=== PATIENT | female | born 2000 | race Caucasian/White ===

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

== ENCOUNTER 2018-01-28 14:15 | Outpatient (REF) | payer MEDICAID, SELFPAY ==
[2018-01-28 19:15] LABS: HCT 42.8 % (36.0-46.0); HGB 15.3 g/dL (12.0-15.5); Mean Corp. HGB Concentration 35.7 g/dL (32.0-36.0); Mean Corpuscular Hemoglobin 31.2 pg (27.0-33.0); Mean Corpuscular Volume 87.2 fL (80-95); Mean Platelet Volume 10.4 fL (8.0-11.0); Platelet Count 407 x1000/uL (130-400); RBC 4.91 m/cumm (4.00-5.20); RBC Distribution Width 12.3 % (11.7-14.6); White Blood Cell Count 6.87 k/cumm (4.4-10.8)
[2018-01-28 19:32] LABS: ALT 21 U/L (12-78); AST 20 U/L (15-37); Albumin 4.2 g/dL (3.4-5.0); Alkaline Phosphatase 86 U/L (46-116); Anion Gap 12.1 mmol/L (3-11); BUN 36 mg/dL (7-18); Bilirubin, Total 0.7 mg/dL (0.2-1.0); CO2 25.9 mmol/L (21.0-32.0); Calcium 10.1 mg/dL (8.5-10.1); Chloride 101 mmol/L (98-107); Glucose 131 mg/dL (70-100); Potassium 4.1 mmol/L (3.5-5.1); Sodium 139 mmol/L (136-145); TSH (W/Ref FT4) 1.82 uIU/mL (0.516-4.13); Total Protein 7.4 g/dL (6.4-8.2)
== END 2018-01-28 14:35 ==
LOC: NCHCN 14:15
PROVIDERS: PCP Nurse Practitioner Family; Visit Provider Family Medicine
DX: E11.40 Type 2 diabetes mellitus with diabetic neuropathy, unspecified (principal); R63.4 Abnormal weight loss
CPT/HCPCS: 80053; 85027; 84443

== ENCOUNTER 2019-07-02 08:16 | Inpatient (IN) | payer MEDICAID, SELFPAY ==
[2019-07-02] VITALS (44 sets, daily range): BP systolic 103–130; BP diastolic 71–92; PULSE 64–115; RESP 9–20; TEMP 36.1–37.8; O2SAT 97–100
--- NOTE | 2019-07-02 | DI.US_ITS ---
EXAM: US RENAL CLINICAL HISTORY: hydronephrosis, back pain, acute urinary retention TECHNIQUE: Ultrasound performed using standard protocol. COMPARISON: MR LUMBAR SPINE WO from 07/02/2019 US ECHOCARDIOGRAM from 07/04/2019 FINDINGS: Both kidneys are noted to be mildly enlarged and show increased renal echogenicity in relation to the liver. The right kidney measures 14.6 cm in length. The left kidney measures 13.4 cm. There is a question of mild bilateral collecting system dilatation. No perinephric collections are seen. There is no evidence of calculi. A Richardson catheter is seen in an empty bladder. IMPRESSION: Bilateral renal enlargement and increased renal echogenicity may be secondary to medical renal diseas e. There is a question of mild bilateral hydronephrosis. DATA REPOSITORY:
--- NOTE | 2019-07-02 08:19 | ED.GENADUL_ITS ---
Discharge Plan Disposition Patient Disposition: [facility] INPATIENT Condition: Stable Discharge Details Chief Complaint: Diabetes Clinical Impression: Hypoglycemia, Acute kidney injury, Hypoalbuminemia, Acute on chronic anemia, Acute urinary retention, UTI (urinary tract infection) Primary Care Provider: None,None ED Provider: Rosa Dietz Home Meds and New Rx's Prescriptions: No Action Lantus U-100 Insulin 100 unit/mL Solution 30 unit SUBCUT DAILY RF: 0 Humalog KwikPen Insulin 200 unit/mL (3 mL) Insulin Pen 30 unit SUBCUT DAILY RF: 0 Medical Decision Making 0825 -- 19-year-old female with a history of poorly controlled diabetes presents for high blood sugar last night and unresponsiveness after found by father this morning. Patient arrived to the ED in a wheelchair. She appears chronically ill, pale, lethargic and not able to answer questions. Airway appears intact. Vitals within normal limits. Fingerstick glucose 46. 2 peripheral IVs placed and 2 A of D50 given. Patient became more alert and was able to answer questions. She states she does not regularly check her blood sugar and that last night she gave herself 50 units of Lantus and 2 doses of Humalog with 30 units initially and then 10 units. She has not eaten since last night and did not give herself any insulin this morning. She was recently admitted to hospital in [place] for UTI. She states she has been significantly weak since then requiring the use of a walker. She states for the last few weeks she has had bilateral leg swelling, weakness, numbness in addition to urinary retention and loose stools. She denies any fever, abdominal pain, back pain or saddle anesthesia. She has moderate peripheral leg edema with notable weakness in both legs. She has mildly decreased rectal tone. Bladder scan 1000 cc. Repeat glucose 452. Discussed with patient that she will need to stay in the hospital due to her current condition and poorly controlled diabetes. Will obtain an MRI lumbar spine to rule out cauda equina although this appears less likely as she has intact sensation to perineum with only mildly decreased rectal tone and her lower extremity edema and weakness could be attributed to underlying kidney or liver disease and deconditioning. She does state that she has had ongoing lower back pain for months, usually worse at night but currently denies any back pain. 1000 --recheck glucose 237. Patient had 2700 cc of urine removed with indwelling Richardson catheter. Labs reviewed. White blood cell count 12. Hemoglobin 7.6. Potassium 3.2. BUN 37. Creatinine 2.44. Negative troponin. BNP 598. Urinalysis notes greater than 50 WBCs, negative epis and moderate bacteria. Will give a dose of antibiotics. Records from [facility] in [place] note that patient was admitted there for 5 days and diagnosed with hyponatremia and UTI treated with Rocephin. She had a CT abdomen done which noted a distended urinary bladder with bilateral hydronephrosis. She had urinary retention at that time and was thought to be due to a neurogenic bladder. Her pedal edema was treated with IV Lasix. She had gotten physical therapy and was discharged home after improved. Her admission creatinine was 2.57 and was down to 1.21 on discharge. Hemoglobin was as low as 8.2 during this admission. She has significant generalized weakness so will give 1 unit of prbc. Case discussed with Dr. Phillips who accepts patient for admission pending lumbar spine MRI. 1300 --lumbar spine MRI negative for any acute neurological process. Noted b ilateral large kidneys with mild bilateral hydronephrosis. Suspect urinary retention may be due to neurogenic bladder. Case again discussed with hospitalist who accepts patient for admission to the floor. Patient feels much better. She has been hemodynamically stable. She was able to eat breakfast and lunch. Medical Records Medical records reviewed: Yes I reviewed the patient's medical records. Imaging Data Radiologic Study: Radiologist's impression: XR PORTABLE CHEST AP INDICATION: leg swelling/weakness, r/o acute disease. COMPARISON: No exams were available for comparison TECHNIQUE: 2D digital imaging was performed. FINDINGS: Cardiac and mediastinal contours have a normal appearance. Leads overlie the chest. The lungs are suboptimally inflated but appear clear. No infiltrate, effusion or pulmonary edema is seen. No rib fracture or pneumothorax is identified. The shoulders are unremarkable. No free air is seen beneath the diaphragm. There is no abnormal visualized loops of bowel or abnormal gastric dilatation. IMPRESSION: Negative portable chest. Lab Data Lab results reviewed: Yes I reviewed the patient's lab results. Labs: 07/02/19 09:42 Urine - Reflex from Ua Urine Culture - Pending Laboratory Tests Range/Units 07/02/19 07/02/19 07/02/19 08:50 08:50 09:42 WBC (4.4-10.8) k/cumm 12.16 H RBC (4.00-5.20) m/cumm 2.75 L Hgb (12.0-15.5) g/dL 7.6 L Hct (36.0-46.0) % 23.2 L MCV (80-95) fL 84.4 MCH (27.0-33.0) pg 27.6 MCHC (32.0-36.0) g/dL 32.8 RDW (11.7-14.6) % 11.7 Plt Count (130-400) x1000/uL 561 H MPV (8.0-11.0) fL 8.7 Immature Gran % % 0.0 Neutrophils % 81.0 Lymphocytes % 14.0 Monocytes % 3.0 Eosinophils % 1.0 Basophils % 1.0 Absolute Neutrophils (1.2-6.7) k/cumm 9.85 H Absolute Lymphocytes (1.2-3.4) k/cumm 1.70 Absolute Monocytes (0.11-0.7) k/cumm 0.36 Absolute Eosinophils (0.0-0.7) k/cumm 0.12 Absolute Basophils (0.0-0.2) k/cumm 0.12 Differential Comment Manual differential RBC Morphology See below Polychromasia Present Sodium (136-145) mmol/L 133 L Potassium (3.5-5.1) mmol/L 3.2 L Chloride (98-107) mmol/L 98 Carbon Dioxide (21.0-32.0) mmol/L 23.4 Anion Gap (3-11) mmol/L 11.6 H BUN (7-18) mg/dL 37 H Creatinine (0.55-1.02) mg/dL 2.44 H Estimated GFR/1.73 m2 (mL/min/1.73m2) 25.00 Glucose (74-106) mg/dL 36 L* Calcium (8.5-10.1) mg/dL 8.9 Magnesium (1.8-2.4) mg/dL 1.8 Total Bilirubin (0.2-1.0) mg/dL 0.1 L AST (15-37) U/L 13 L ALT (14-59) U/L 7 L Alkaline Phosphatase (46-116) U/L 152 H Troponin I (<0.06) ng/Ml < 0.05 NT-Pro-B Natriuret Pep (<300) pg/mL 598 H Total Protein (6.4-8.2) g/dL 8.3 H Albumin (3.4-5.0) g/dL 1.9 L Urine Color (Yellow) Yellow Urine Clarity (Clear) Sl cloudy Urine pH (5-8) 6.0 Ur Specific Clayton (1.005-1.025) 1.015 Urine Protein (Negative) mg/dL Trace H Urine Ketones (Negative) mg/dL Negative Urine Blood (Negative) Moderate H Urine Nitrite (Negative) Negative Urine Bilirubin (Negative) Negative Urine Urobilinogen (Up TO 0.2) EU/dL 0.2 Ur Leukocyte Esterase (Negative) Moderate H Urine RBC (0-2) HPF 5-10 H Urine WBC (0-5) HPF >50 H Ur Epithelial Cells (Negative) HPF Negative Urine Crystals (Negative) HPF Negative Urine Bacteria (Negative) HPF Moderate Urine Casts (Negative) LPF Negative Urine Mucus (Negative) Negative Urine Other (Negative) Moderate yeast Ur Culture Indicated? Yes Urine Glucose (Negative) mg/dL 500 H Urine Opiates Screen (Negative) Urine Methadone Screen (Negative) Ur Barbiturates Screen (Negative) Ur Tricyclics Screen (Negative) Ur Amphetamines Screen (Negative) U Benzodiazepines Scrn (Negative) Urine Cocaine Screen (Negative) Ur THC Screen (Negative) Patient ABO/Rh Antibody Screen Crossmatch Range/Units 07/02/19 07/02/19 09:42 10:27 WBC (4.4-10.8) k/cumm RBC (4.00-5.20) m/cumm Hgb (12.0-15.5) g/dL Hct (36.0-46.0) % MCV (80-95) fL MCH (27.0-33.0) pg MCHC (32.0-36.0) g/dL RDW (11.7-14.6) % Plt Count (130-400) x1000/uL MPV (8.0-11.0) fL Immature Gran % % Neutrophils % Lymphocytes % Monocytes % Eosinophils % Basophils % Absolute Neutrophils (1.2-6.7) k/cumm Absolute Lymphocytes (1.2-3.4) k/cumm Absolute Monocytes (0.11-0.7) k/cumm Absolute Eosinophils (0.0-0.7) k/cumm Absolute Basophils (0.0-0.2) k/cumm Differential Comment RBC Morphology Polychromasia Sodium (136-145) mmol/L Potassium (3.5-5.1) mmol/L Chloride (98-107) mmol/L Carbon Dioxide (21.0-32.0) mmol/L Anion Gap (3-11) mmol/L BUN (7-18) mg/dL Creatinine (0.55-1.02) mg/dL Estimated GFR/1.73 m2 (mL/min/1.73m2) Glucose (74-106) mg/dL Calcium (8.5-10.1) mg/dL Magnesium (1.8-2.4) mg/dL Total Bilirubin (0.2-1.0) mg/dL AST (15-37) U/L ALT (14-59) U/L Alkaline Phosphatase (46-116) U/L Troponin I (<0.06) ng/Ml NT-Pro-B Natriuret Pep (<300) pg/mL Total Protein (6.4-8.2) g/dL Albumin (3.4-5.0) g/dL Urine Color (Yellow) Urine Clarity (Clear) Urine pH (5-8) Ur Specific Clayton (1.005-1.025) Urine Protein (Negative) mg/dL Urine Ketones (Negative) mg/dL Urine Blood (Negative) Urine Nitrite (Negative) Urine Bilirubin (Negative) Urine Urobilinogen (Up TO 0.2) EU/dL Ur Leukocyte Esterase (Negative) Urine RBC (0-2) HPF Urine WBC (0-5) HPF Ur Epithelial Cells (Negative) HPF Urine Crystals (Negative) HPF Urine Bacteria (Negative) HPF Urine Casts (Negative) LPF Urine Mucus (Negative) Urine Other (Negative) Ur Culture Indicated? Urine Glucose (Negative) mg/dL Urine Opiates Screen (Negative) Negative Urine Methadone Screen (Negative) Negative Ur Barbiturates Screen (Negative) Negative Ur Tricyclics Screen (Negative) Negative Ur Amphetamines Screen (Negative) Negative U Benzodiazepines Scrn (Negative) Negative Urine Cocaine Screen (Negative) Negative Ur THC Screen (Negative) Negative Patient ABO/Rh O Negative Antibody Screen Negative Crossmatch See Detail ECG Data Attestation: I personally reviewed and interpreted this ECG (s) as follows: Interpretation: Rate of 72, sinus, no acute ST elevation or depression. FL 146. QTc 462. QRS 100. HPI General Mode of arrival: wheelchair . Date/Time Provider Initiated Documentation: 07/02/19 08:18 . Limitations to Documentation: altered mental status . Information obtained by: patient and family . HPI Narrative: Patient is a 19-year-old female with a history of poorly controlled diabetes presents for high blood sugar last night and unresponsiveness after found by father this morning. Father states patient flew in from [place] last evening after staying there for 2 months. He states she has not been taking good care of herself for her diabetes. He states that she has had a stockpile of insulin for the last several years and has not seen a doctor to manage her diabetes. He states she required assistance getting off the plane last night due to her weakness. Blood sugar at home last night was 500 and then 200. He states this morning when he awoke he checked on patient, and she was lethargic and unable to get up and not answering questions. Related Data Home Medications Medication Instructions Recorded Confirmed insulin glargine [Lantus U-100 30 unit SUBCUT DAILY 07/02/19 07/02/19 Insulin] insulin lispro [Humalog KwikPen 30 unit SUBCUT DAILY 07/02/19 07/02/19 Insulin] Allergies Allergy/AdvReac Type Severity Reaction Status Date / Time No Known Allergies Allergy Unverified 07/02/19 10:21 Review of Systems All systems reviewed & are unremarkable except as noted in HPI and below Constitutional Constitutional: Reports as per HPI, Denies chills and Denies fever(s) Eyes Eyes: Denies blurry vision ENT Ears, Nose, Mouth, and Throat: Denies dizziness, Denies sore throat and Denies throat swelling Cardiovascular Cardiovascular: Denies chest pain and Denies dyspnea Respiratory Respiratory: Denies cough and Denies dyspnea Gastrointestinal Gastrointestinal: Denies abdominal pain, Denies diarrhea and Denies vomiting Genitourinary Genitourinary: Denies hematuria and Denies dysuria Musculoskeletal Musculoskeletal: Denies back pain and Denies numbness Integumentary/Breasts Skin/Breast: Denies lesions and Denies rash Neurologic Neurologic: Denies dizziness, Denies focal weakness and Denies numbness Allergic/Immunologic Allergic/Immunologic: Denies throat swelling [facility] Medical History (Updated 07/02/19 @ 13:05 by Rosa Dietz DO) Diabetes (Chronic) Surgical History No significant past surgical history (Acute) Social History (Updated 07/02/19 @ 09:19 by Rosa Dietz DO) Smoking/Tobacco Use Status: Never Alcohol Intake: never Drug use: Never Exam Const General: cooperative, disheveled, ill appearing chronically and lethargic HENMT Head: normal to inspection Ears: hearing grossly normal bilaterally, external ears normal and TM's normal bilaterally Face and sinus: normal facial exam Mouth: mucous membranes dry Eyes General: appearance normal, both eyes and all related structures Pupils: PERRL EOM: EOM intact bilaterally Neck Neck: normal visual inspection and No submandibular swelling Lymphatic: no lymphadenopathy noted Chest Chest: normal inspection of the chest and no tenderness Resp Effort & Inspection: normal respiratory effort and able to speak in complete sentences Auscultation: clear to auscultation bilaterally Cardio Rate: regular rate Rhythm: regular rhythm GI Inspection: normal to inspection and distended (minimal, lower abdomen, not tense) Palpation: soft, not firm, not rigid and nontender Auscultation: hypoactive bowel sounds Rectal Exam - female: abnormal sphincter tone Rectal exam abnormal sphincter tone - female: decreased and heme negative stool (Stool brown in color) Skin General skin exam: no rashes or lesions noted Neuro General: other (drowsy) Speech: abnormal speech (slowed, garbled) Motor: other (MS b/l UE 5/5, b/l LE 4/5) Other: Unable to plantar flex bilaterally. Lower extremity reflexes hypoactive throughout. Negative Babinski bilaterally. Sensory grossly intact throughout. Sensation intact perineum. Extrem General: normal to inspection, full ROM, normal capillary refill, no calf tenderness bilaterally and edema Laterality: bilateral (nonpitting) Psych Appearance: disheveled Speech and Movement: other (slowed speech and movement) Affect: blunted
[2019-07-02] MEDS: Dextrose 50%-Water 25 GM/50 ML SYR (08:25)
--- NOTE | 2019-07-02 08:30 | DI.RAD_ITS ---
EXAM: XR PORTABLE CHEST AP INDICATION: leg swelling/weakness, r/o acute disease. COMPARISON: No exams were available for comparison TECHNIQUE: 2D digital imaging was performed. FINDINGS: Cardiac and mediastinal contours have a normal appearance. Leads overlie the chest. The lungs are suboptimally inflated but appear clear. No infiltrate, effusion or pulmonary edema is seen. No rib fracture or pneumothorax is identified. The shoulders are unremarkable. No free air is seen beneath the diaphragm. There is no abnormal visualized loops of bowel or abnormal gastric dilatation. IMPRESSION: Negative portable chest. DATA REPOSITORY: RADIATION DOSE DELIVERED:
[2019-07-02] MEDS: Dextrose 50%-Water 25 GM/50 ML SYR IVP (08:34)
[2019-07-02] MEDS: Normal Saline 1,000 ML 1000 ML IV (08:40)
[2019-07-02 09:04] LABS: HCT 23.2 % (36.0-46.0); HGB 7.6 g/dL (12.0-15.5); Mean Corp. HGB Concentration 32.8 g/dL (32.0-36.0); Mean Corpuscular Hemoglobin 27.6 pg (27.0-33.0); Mean Corpuscular Volume 84.4 fL (80-95); Mean Platelet Volume 8.7 fL (8.0-11.0); Platelet Count 561 x1000/uL (130-400); RBC 2.75 m/cumm (4.00-5.20); RBC Distribution Width 11.7 % (11.7-14.6); White Blood Cell Count 12.16 k/cumm (4.4-10.8)
[2019-07-02 09:33] LABS: ALT 7 U/L (14-59); AST 13 U/L (15-37); Albumin 1.9 g/dL (3.4-5.0); Alkaline Phosphatase 152 U/L (46-116); Anion Gap 11.6 mmol/L (3-11); BUN 37 mg/dL (7-18); Bilirubin, Total 0.1 mg/dL (0.2-1.0); CO2 23.4 mmol/L (21.0-32.0); CREATININE 2.44 mg/dL (0.55-1.02); Calcium 8.9 mg/dL (8.5-10.1); Chloride 98 mmol/L (98-107); Magnesium 1.8 mg/dL (1.8-2.4); NT-proBNP 598 pg/mL (<300); Potassium 3.2 mmol/L (3.5-5.1); Sodium 133 mmol/L (136-145); Total Protein 8.3 g/dL (6.4-8.2)
[2019-07-02 09:36] LABS: Absolute Basophil Count 0.12 k/cumm (0.0-0.2); Absolute Eosinophil Count 0.12 k/cumm (0.0-0.7); Absolute Monocyte Count 0.36 k/cumm (0.11-0.7); Absolute Neutrophil Count 9.85 k/cumm (1.2-6.7)
[2019-07-02 09:37] LABS: Diff Comment Manual Differential; Polychromasia Present
--- NOTE | 2019-07-02 09:37 | DI.MRI_ITS ---
EXAM: MR LUMBAR SPINE WO CLINICAL HISTORY: urinary retention, leg weakness, numbness,? cauda equina symptoms. TECHNIQUE: Multiplanar multisequence MRI was performed. COMPARISON: XR PORTABLE CHEST AP from 07/02/2019 FINDINGS: The marrow signal is normal. The intervertebral discs are well maintained. There is no evidence o f disc herniation or mass. The conus medullaris appears normal. There is no evidence of paravertebr al soft tissue swelling. No neural foraminal narrowing or central canal stenosis is seen. The kidneys are partially included on the axial images as well as on the coronal digital account coordinator image and appe ar enlarged, measuring 14 cm in length. There is a question of mild bilateral hydronephrosis. The u rinary bladder is not abnormally distended. No focal renal parenchymal abnormality is seen. IMPRESSION: Negative MRI of the lumbar spine. No abnormalities seen in the region of the cauda equina. Bilaterally enlarged kidneys and question of mild hydronephrosis. DATA REPOSITORY:
[2019-07-02 09:43] LABS: Glucose 36 mg/dL (74-106); Troponin I < 0.05 ng/Ml (<0.06)
[2019-07-02 09:50] LABS: Bilirubin Negative (Negative); Blood Moderate (Negative); Clarity Sl Cloudy (Clear); Glucose 500 mg/dL (Negative); Ketones Negative (Negative); Leukocyte Esterase Moderate (Negative); Nitrite Negative (Negative); Specific Gravity 1.015 (1.005-1.025); Urobilinogen 0.2 EU/dL (Up TO 0.2)
[2019-07-02 10:01] LABS: Bacteria Moderate HPF (Negative); C & S Indicated? Yes; Casts Negative LPF (Negative); Crystals Negative HPF (Negative); Epithelial Cells Negative HPF (Negative); Mucus Negative (Negative); Other Cells Moderate Yeast (Negative); WBC >50 HPF (0-5)
[2019-07-02 10:12] LABS: *AMPHETAMINES SCREEN URINE Negative (Negative); *BARBITURATES SCREEN URINE Negative (Negative); *BENZODIAZEPINES SCREEN URINE Negative (Negative); Cannabinoids THC Negative (Negative); Cocaine Screen,Urine Negative (Negative); METHADONE URINE SCREEN Negative (Negative); OPIATES URINE SCREEN Negative (Negative)
[2019-07-02 10:14] LABS: Tricyclic Antidepressants Negative (Negative)
[2019-07-02] MEDS: PIPERACILLIN/TAZO 3.375 GM in Normal Saline 50 ML IVPB (10:18)
[2019-07-02] MEDS: Normal Saline 1,000 ML 125 ML IV ×2 (11:02→18:38)
--- NOTE | 2019-07-02 14:01 | W.PM.HP.N ---
Date of service: 07/02/19 Time of Service: 14:01 Assessment and Plan Assessment and plan (1) UTI (urinary tract infection): Start date: 07/02/19 Start time: 16:50 Status: Acute Assessment and plan: Present on Admission. Found to have nitrates with leuko est. greater than 50 WBC. Started on levaquin. Recently treated for UTI 2 weeks ago with ceftriaxone. Monitor urine culture. await sensitivities. (2) Hypoglycemia: Start date: 07/02/19 Start time: 16:28 Status: Acute Assessment and plan: 19 yo IDDM since age 9, has not received primary care in approx 3 years, admitted from [facility] ED after hypoglycemic episode 36. Takes lantus 50 h.s. and 30 units lispro daily. C/o pins and needle feelings to feet. Malnourished. Fingerstick Ac/HS with SSI. A1C geological manager consult gabapentin TID carb coverage diet. (3) Acute kidney injury: Start date: 07/02/19 Start time: 16:32 Status: Acute Assessment and plan: Previous admission creatinine on day of discharge 1.21. Today Creatinine 2.44. IVF, hold nephrotoxic medication (4) Acute on chronic anemia: Start date: 07/02/19 Start time: 16:34 Status: Acute Assessment and plan: Likely secondary to chronic kidney disease will do iron studies, as it does not appear any have been done. Transfused 1 unit PRBC from ED. Repeat cbc in am. Continue to monitor. (5) Hypoalbuminemia: Start date: 07/02/19 Start time: 16:33 Status: Acute Assessment and plan: Albumin 1.9. Malnourished. Monitor and offer low carb meal. geological manager. (6) Acute urinary retention: Start date: 07/02/19 Start time: 16:45 Status: Acute Assessment and plan: AUR found to have over 2 L in bladder. with UTI. See above Likely neurogenic bladder from uncontrolled diabetes. Started having uncontrolled bouts of incontinence approx 6 weeks ago. Renal u/s. Urology consult Aguilera catheter at this time. (7) Bilateral lower extremity edema: Start date: 07/02/19 Start time: 16:48 Status: Acute Assessment and plan: Bilateral 3+ pitting edema. Give IV lasix. Monitor (8) DVT prophylaxis: Start date: 07/02/19 Start time: 16:49 Status: Acute Assessment and plan: Jesu Rodriguez History of Present Illness History of Present Illness Chief Complaint: UTI, Weakness, Hypoglycemia Narrative: 19 y.o female with PMH type 1 diabetes presents to [facility] ED slightly responsive with BGL 36. Ms. Martinez states she was Recently hospitalized in [place] for similar events. Her symptoms have been on going for approx 5-6 weeks with loss of bowel and bladder, swollen ankles and bilateral lower extremity weakness. Records obtained from recent hospitalization in [place], where she was inpatient for 5 days. Admitted for UTI, Weakness, hyponatremia; urine culture positive for acinetobacter baumannii. She was treated with Ceftriaxone and lasix for edema. Creatinine on previous admission 1.21, hemoglobin 8.2 on day of discharge. She returned to [place] to live with her father a couple days ago. She has not seen a PCP in over 3 years. She has stocked up on insulin and has been using what she has. She also states depression keeping her in bed for 4 weeks. This morning she was found to be lethargic and weak. Last night Blood sugar was 500 she took 50 lantus with subsuquent 30 units lispro and another 10 units following blood sugar 270's after initial 500. Upon arrival to ED bgl was 36, pt was given 50 units D50 then another 50 units to increase blood sugar to 450's. Labs were significant for hypokalemia 3.2, hyponatermia 133 creatinine 2.44 alkiline phos 152 albumin 1.9, hemoglobin 7.6. She was found to have a UTI with nitrate, leuko esterase and greater than 50 WBC; urine glucose 500. MRI negative for lumbar abnormalities bilateral enlarged kidneys and question of mild hydronephrosis. She was found to have UR with over 2000 ml out when aguilera inserted.She is being admitted to [facility] for UTI and hypoglycemia. She denies CP, N/V/D. Renal u/s being done. IVF, fingerstick Ac/HS. Repeat chemistry and cbc tomorrow. PT to work with her. She recieved 1 uprbc. Review of Systems All systems reviewed & are unremarkable except as noted in HPI and below PFSH Medical History Diabetes (Chronic) Surgical History No significant past surgical history (Acute) Social History Smoking/Tobacco Use Status: Never Alcohol Intake: never Drug use: Never Meds Home Medications and Allergies Home Medications Medication Instructions Recorded Confirmed Type insulin glargine [Lantus U-100 30 unit SUBCUT DAILY 07/02/19 07/02/19 History Insulin] insulin lispro [Humalog KwikPen 30 unit SUBCUT DAILY 07/02/19 07/02/19 History Insulin] Allergies Allergy/AdvReac Type Severity Reaction Status Date / Time No Known Allergies Allergy Unverified 07/02/19 10:21 Exam Const General: cooperative, disheveled, frail appearing and ill appearing chronically Nutritional Appearance: thin and underweight Orientation: alert, awake and oriented x3 HENMT Head: normal to inspection, normocephalic and atraumatic Ears: hearing grossly normal bilaterally Face and sinus: normal facial exam Mouth: moist mucous membranes Eyes General: appearance normal, both eyes and all related structures Pupils: PERRL EOM: EOM intact bilaterally Neck Neck: normal visual inspection and full ROM Thyroid: thyroid normal Carotids: normal carotid upstroke Lymphatic: no lymphadenopathy noted and no lymphedema noted Chest Chest: normal inspection of the chest Resp Effort & Inspection: normal respiratory effort Auscultation: clear to auscultation bilaterally Cardio Jugular venous pressure: no JVD Rate: tachycardic Rhythm: regular rhythm Heart Sounds: S1 normal and S2 normal GI Inspection: scaphoid Palpation: soft and no hepatosplenomegaly Auscultation: normal bowel sounds General: No CVA tenderness and deferred Back/Spine/Pelvis Back: no CVA tenderness Thoracic/Lumbar Spine: thoracic and lumbar spine normal to inspection Skin General skin exam: no rashes or lesions noted Hair: brittle and general thinning Neuro General: alert, awake and oriented x3 Extrem General: normal to inspection, full ROM and edema (+3) Laterality: bilateral Psych Appearance: disheveled Speech and Movement: speech and movement normal Mood: congruent mood Affect: normal affect Attitude: cooperative Results Labs Result diagrams: 07/02/19 08:50 07/02/19 08:50 Labs: Laboratory Results - last 24 hr 02/28/20 02/28/20 02/28/20 08:50 08:50 09:42 WBC 12.16 H RBC 2.75 L Hgb 7.6 L Hct 23.2 L MCV 84.4 MCH 27.6 MCHC 32.8 RDW 11.7 Plt Count 561 H MPV 8.7 Immature Gran % 0.0 Neutrophils % 81.0 Lymphocytes % 14.0 Monocytes % 3.0 Eosinophils % 1.0 Basophils % 1.0 Absolute Neutrophils 9.85 H Absolute Lymphocytes 1.70 Absolute Monocytes 0.36 Absolute Eosinophils 0.12 Absolute Basophils 0.12 Differential Comment Manual differential RBC Morphology See below Polychromasia Present Sodium 133 L Potassium 3.2 L Chloride 98 Carbon Dioxide 23.4 Anion Gap 11.6 H BUN 37 H Creatinine 2.44 H Estimated GFR/1.73 m2 25.00 Glucose 36 L* Calcium 8.9 Magnesium 1.8 Total Bilirubin 0.1 L AST 13 L ALT 7 L Alkaline Phosphatase 152 H Troponin I < 0.05 NT-Pro-B Natriuret Pep 598 H Total Protein 8.3 H Albumin 1.9 L Urine Color Yellow Urine Clarity Sl cloudy Urine pH 6.0 Ur Specific Evergreen 1.015 Urine Protein Trace H Urine Ketones Negative Urine Blood Moderate H Urine Nitrite Negative Urine Bilirubin Negative Urine Urobilinogen 0.2 Ur Leukocyte Esterase Moderate H Urine RBC 5-10 H Urine WBC >50 H Ur Epithelial Cells Negative Urine Crystals Negative Urine Bacteria Moderate Urine Casts Negative Urine Mucus Negative Urine Other Moderate yeast Ur Culture Indicated? Yes Urine Glucose 500 H Urine Opiates Screen Urine Methadone Screen Ur Barbiturates Screen Ur Tricyclics Screen Ur Amphetamines Screen U Benzodiazepines Scrn Urine Cocaine Screen Ur THC Screen Patient ABO/Rh Antibody Screen Crossmatch 07/02/19 07/02/19 09:42 10:27 WBC RBC Hgb Hct MCV MCH MCHC RDW Plt Count MPV Immature Gran % Neutrophils % Lymphocytes % Monocytes % Eosinophils % Basophils % Absolute Neutrophils Absolute Lymphocytes Absolute Monocytes Absolute Eosinophils Absolute Basophils Differential Comment RBC Morphology Polychromasia Sodium Potassium Chloride Carbon Dioxide Anion Gap BUN Creatinine Estimated GFR/1.73 m2 Glucose Calcium Magnesium Total Bilirubin AST ALT Alkaline Phosphatase Troponin I NT-Pro-B Natriuret Pep Total Protein Albumin Urine Color Urine Clarity Urine pH Ur Specific Evergreen Urine Protein Urine Ketones Urine Blood Urine Nitrite Urine Bilirubin Urine Urobilinogen Ur Leukocyte Esterase Urine RBC Urine WBC Ur Epithelial Cells Urine Crystals Urine Bacteria Urine Casts Urine Mucus Urine Other Ur Culture Indicated? Urine Glucose Urine Opiates Screen Negative Urine Methadone Screen Negative Ur Barbiturates Screen Negative Ur Tricyclics Screen Negative Ur Amphetamines Screen Negative U Benzodiazepines Scrn Negative Urine Cocaine Screen Negative Ur THC Screen Negative Patient ABO/Rh O Negative Antibody Screen Negative Crossmatch See Detail Last Vital Signs Temp 36.5 C 07/02/19 13:49 Pulse 79 07/02/19 13:49 Resp 13 07/02/19 13:49 BP 114/79 07/02/19 13:49 Pulse Ox 100 07/02/19 13:49
[2019-07-02 14:44] LABS: INR 1.2 (0.9-1.1); PTT Activated 27.9 sec (21.0-31.4); Prothrombin Time 11.6 sec (9.3-11.0)
--- NOTE | 2019-07-02 17:07 | DI.VRAD_ITS ---
PROCEDURE INFORMATION: Exam: US Retroperitoneal Complete. Exam date and time: 07/02/2019 4:35 PM Age: 19 years old Clinical indication: Other: Back pain acute urinary retention TECHNIQUE: Imaging protocol: Real-time ultrasound of the retroperitoneum with image documentation. Complete exam. COMPARISON: No relevant prior studies available. FINDINGS: Right kidney: Right kidney measures 14.6 cm. Left kidney: Left kidney measures 13.4 cm. Bladder: Urinary bladder is contracted secondary to a Richardson catheter and not well assessed. Other: There is mild right greater than left bilateral hydronephrosis. Obstructive process is not excluded. If indicated, CT scan could be considered for further evaluation. There is some mild heterogeneity to each renal cortex which may be artifactual but should be correlated with any concern for infection. IMPRESSION: 1. There is mild right greater than left bilateral hydronephrosis. Obstructive process such as calculus is not excluded. If indicated, CT scan could be considered for further evaluation. 2. There is some mild heterogeneity to each renal cortex which may be artifactual but should be correlated with any concern for infection. 3. Urinary bladder is contracted secondary to a Richardson catheter and not well assessed. Other findings/details as above. Dictated and Authenticated by: Estela Martin MD. Ordering:MAXIMO Subramanian MD
[2019-07-02] MEDS: Furosemide 20 MG/2 ML VIAL IVP (17:20)
[2019-07-02] MEDS: Normal Saline Flush 10 ML SYR IVP (17:20)
[2019-07-02] MEDS: Potassium Chloride 20 MEQ TABCR 40 MEQ PO (17:21)
[2019-07-02] MEDS: levoFLOXacin 750 MG/150 ML BAG 100 MG IVPB (17:26)
[2019-07-02] MEDS: Insulin Aspart 300 UNITS/3 ML PEN SC (17:28)
[2019-07-02 17:35] LABS: Hemoglobin A1C 12.2 % (3.8-5.6)
[2019-07-02] MEDS: Gabapentin 100 MG CAP PO (19:47)
[2019-07-02] MEDS: Acetaminophen 325 MG TAB PO (21:30)
[2019-07-03] VITALS (11 sets, daily range): BP systolic 104–109; BP diastolic 64–73; PULSE 92–111; RESP 16–20; TEMP 37–39.2; O2SAT 97–99
[2019-07-03] MEDS: Normal Saline 1,000 ML 125 ML IV (02:18)
[2019-07-03] MEDS: POTASSIUM CHLORIDE/0.9% NACL 1,000 ML 150 MEQ IV (04:23)
[2019-07-03 04:58] LABS: Abs Immature Grans 0.07 k/cumm (0.0-0.09); Absolute Basophil Count 0.04 k/cumm (0.0-0.2); Absolute Eosinophil Count 0.03 k/cumm (0.0-0.7); Absolute Monocyte Count 0.99 k/cumm (0.11-0.7); Absolute Neutrophil Count 10.28 k/cumm (1.2-6.7); Basophils % 0.3; Eosinophils % 0.2; HCT 23.2 % (36.0-46.0); HGB 7.8 g/dL (12.0-15.5); Immature Grans % 0.6 %; Lymphocytes % 10.2; Mean Corp. HGB Concentration 33.6 g/dL (32.0-36.0); Mean Corpuscular Hemoglobin 28.5 pg (27.0-33.0); Mean Corpuscular Volume 84.7 fL (80-95); Mean Platelet Volume 8.8 fL (8.0-11.0); Monocytes % 7.8; Neutrophils % 80.9; Platelet Count 510 x1000/uL (130-400); RBC 2.74 m/cumm (4.00-5.20); RBC Distribution Width 12.2 % (11.7-14.6); White Blood Cell Count 12.71 k/cumm (4.4-10.8)
[2019-07-03] MEDS: Acetaminophen 325 MG TAB PO ×2 (04:59→20:56)
[2019-07-03 05:10] LABS: Iron 20 ug/dL (50-170); Total Iron Binding Capacity 122 ug/dL (250-450); Transferrin Sat 16 % (15-50)
[2019-07-03 05:33] LABS: Anion Gap 10.6 mmol/L (3-11); BUN 37 mg/dL (7-18); CO2 20.4 mmol/L (21.0-32.0); CREATININE 2.11 mg/dL (0.55-1.02); Calcium 7.9 mg/dL (8.5-10.1); Chloride 102 mmol/L (98-107); Estimated GFR 29.57 (mL/min/1.73m2); Glucose 190 mg/dL (74-106); Magnesium 1.3 mg/dL (1.8-2.4); Potassium 4.1 mmol/L (3.5-5.1); Sodium 133 mmol/L (136-145)
[2019-07-03 05:34] LABS: Anisocytosis 1+; Diff Comment Agrees w/ Instrument; Polychromasia Present
[2019-07-03 05:37] LABS: Ferritin 1212 ng/mL (8-252)
[2019-07-03 05:38] LABS: Folate 5.6 ng/mL (8.6-20.0); Vitamin B12 1352 pg/mL (193-986)
[2019-07-03] MEDS: Gabapentin 100 MG CAP PO ×2 (07:43→13:00)
[2019-07-03] MEDS: Omeprazole 10 MG CAPCR PO (07:43)
[2019-07-03 08:53] LABS: PROTEIN 23.7 mg/dL
[2019-07-03] MEDS: Magnesium Oxide 400 MG TAB 800 MG PO (09:29)
[2019-07-03] MEDS: MAGNESIUM SULFATE 4 GM/100 ML BAG IVPB (09:29)
[2019-07-03 09:33] LABS: COMMENT (LAB VIEW ONLY) 11.03 mg/dL; Prot/Crea Ur Ratio 2.14
--- NOTE | 2019-07-03 10:45 | DI.US_ITS ---
EXAM: US EXTREMITY VENOUS BI CLINICAL HISTORY: EDEMA BLE'S, RECENT FLIGHT, CONCERN FOR DVT TECHNIQUE: Ultrasound performed using standard protocol. COMPARISON: XR PORTABLE CHEST AP from 07/02/2019 FINDINGS: Left lower extremity: Thrombus is visible extending from the common femoral vein through the femoral , popliteal and into the posterior tibial veins. Profunda femoral vein also shows thrombus. The sap henous vein appears free of thrombus. Right lower extremity: Thrombus is visible in the profundus femoral vein. The common femoral through post anterior tibial veins are free of thrombus. The saphenous vein appears free of thrombus. IMPRESSION: Extensive left lower extremity deep venous thrombosis. Thrombus is also visible in the right profund us femoral vein. DATA REPOSITORY:
[2019-07-03] MEDS: Insulin Glargine 300 UNITS/3 ML PEN 20 UNITS SC (10:47)
[2019-07-03 11:53] LABS: Iron 17 ug/dL (50-170); Total Iron Binding Capacity 143 ug/dL (250-450); Transferrin Sat 12 % (15-50)
--- NOTE | 2019-07-03 12:02 | INITIAL_ITS ---
- If Service Date Differs Date of service: 07/03/19 Time of Service: 12:02 Care Management Initial Assess REASON FOR HOSPITALIZATION:: UTI, Weakness, Hypoglycemia PAST MEDICAL HISTORY/PAST SURGICAL HISTORY:: Medical History. Diabetes (Chronic). Surgical History. No significant past surgical history (Acute) PREVIOUS FUNCTIONAL STATUS/SOCIAL/FAMILY SUPPORTS:: Jes lives in [place] with her brother. Her father lives closeby and is very supportive. She recently relocated here from [place], where she lived with her mother. She spent time in [place] as a child, where she completed school through the 10th grade. Per Cruz, her father, Jes moved to [place] for access to better insurance in order to cover her medical care and medications. Jes enjoys video games, puzzles and making bath bombs. She is independent at baseline, but has required assistance with her medication while at [facility]. CURRENT FUNCTIONAL STATUS:: Jes was sitting up in bed when CM met with her. Her father was in the room, visiting, and there were several nurses in the room as well. Jes stated that she was tired, as she didn't sleep well last night. Cruz had many questions regarding discharge planning, such as referrals being sent to various community partners. CM advised that a referral had already been sent to [facility] for a new PCP, as well as [facility] for insurance support. Jes will receive diabetic education while at [facility], as well as a urology consult. Jes and Cruz were both pleasant in conversation. CM will continue to follow. ADVANCE DIRECTIVES:: None on file Has patient been provided with information about the portal?: No Did the patient sign up for the portal?: No CODE STATUS:: Full Code INSURANCE COVERAGE / FINANCIAL ISSUES:: Jes currently does not have insurance, but there is a [employer]ON[employer] application pending. Referral was sent to [facility] for f/u. CURRENT HOME/COMMUNITY SERVICES/EQUIPMENT:: Jes is new to this area, and does not currently have any services in the community. She does have a glucose meter, which will be evaluated by her primary RN for accuracy. PRIMARY CARE PHYSICIAN:: Jes currently does not have a PCP. CM sent referral to [facility], Dr. Ulrich, who was the TDoc when she arrived at the ED. POTENTIAL DISCHARGE NEEDS:: Diabetic education, insurance f/u, new PCP, follow up appointments with PCP and Staff Nurse Midwife at [facility] PATIENT/FAMILY EDUCATION NEEDS:: Review discharge instructions regarding activity levels and medications, as well as diabetic education, nutritional education, and self care needs including ask me three ANTICIPATED BARRIERS TO DISCHARGE:: None identified at this time TRANSPORTATION:: Jes will be driven home via private vehicle by her father, Cruz, when ready. PLAN:: Anticipate Jes will return home when medically cleared. She will receive diabetic and nutritional education while at [facility], and will need close f ollow up by her new PCP and Endocrinology at [facility]. CM will follow up with [facility] on Friday to ensure close f/u of concerns with her lack of insurance, as it is an access to care issue. Her father will drive her home via private vehicle when ready. CM will continue to follow and support discharge planning considerations.
[2019-07-03] MEDS: Insulin Aspart 300 UNITS/3 ML PEN SC ×2 (12:03→18:45)
[2019-07-03 12:27] LABS: Folate 8.8 ng/mL (8.6-20.0); Vitamin B12 1310 pg/mL (193-986)
--- NOTE | 2019-07-03 12:30 | IN_ITS ---
PT Notes Visit Reasons: UTI, WEAKNESS, HYPOGLYCEMIA Inpatient Physical Therapy Evaluation Date: 07/03/2019 Referring Doctor: Delon Tran MD PT Orders: PT CONSULT: UTI, hypoglycemia, acute kidney injury Precautions: Falls Patient Profile/Admitting Diagnosis: A 19-year-old female who was admitted yesterday with UTI, hypoglycemia kidney injury. PMHX: Type 2 diabetes Social History/Home Situation: Living in [place] up until this week when she was called home by her father due to her medical condition. Patient states that she was ambulatory until this past week. She is currently living with her father, and he plans on keeping her home for the current time. She seems receptive to this idea. Current Functional Limitations:. Requires assistance with all functional tasks including getting out of bed etc. I recommend an OT work-up for her dressing and bathing skills, etc. Equipment Owned/DME: Her father owns a ranch with 2 steps entering the home. The bathroom has a combo tub shower with a shower chair and flexible shower hose. Subjective: [] Objective: [] General Observation: I entered the room with the patient resting comfortably in a chair and her father is present. He gives me background on the home situation. Mental Status: Alert and oriented x3, patient notes that she is feeling better in regards to her orientation and lethargy compared to yesterday Pain: No complaints of pain offered ROM: Extremity articular motion is full and painless with movement. She has intrinsic wasting of her hands. She has edematous lower extremities Strength: Her upper extremity strength is 5/5, proximal lower extremity musculature is 3/5, her EHL, EDC, anterior tib and peroneals are 2/5. Her gastrocsoleus is 4/5 Neuro: Sensations intact light touch, negative hypertonicity, proprioception is intact, fingertips to nose is accurate with minimal ataxia and her repetitive arm movements are normal. She has a positive Romberg sign Bed Mobility/Transfers: Requires assistance with her lower extremities when assuming the supine to sitting, and sitting supine positions Gait: Ambulates with a wheeled walker with contact guarding. She is unable to walk on her heels and toes, but has enough active dorsiflexion to clear her toes during swing phase. No foot slap. Balance: Noonan balance test was performed and she scored less than 35/56. Score 45 or less indicates a fall risk requiring an assistive device Static Sitting: Good Dynamic Sitting: Good Static Standing: Fair requiring contact guarding and a wider base of support Dynamic Standing: Poor Special Tests: Mobility Limitations Standardized Measure [facility] AM-PAC 6 clicks Basic Mobility Inpatient Short Form: Raw Score: 14 standardized Score: 33.39 CMS Score: 59.67% CMS Modifier: CK Informed Consent/Education: Patient instructed in purpose of PT consult and plan of care. Assessment: Patient is a 19 year old female referred to physical therapy services with the diagnosis of hypoglycemia, UTI, and acute kidney injury. Patient presents with clinical signs and symptoms consistent with this diagnosis, as demonstrated by the following impairment level findings: Gait instability and lower extremity weakness particularly distally resulting in balance deficit. Impairments are contributing to the following functional limitations: AMPAC score. Patient is assessed as a Moderate 93871 complexity based on the following: History: See comorbidities and social history Examination: See above for functional mutations impairments Presentation: Evolving Decision Making: Moderate complexity based on her clinical findings Goals: Goals X1 week 1. Supine-Sit independent 2. Sit-Supine Next field independent [] 3. Sit-Stand [] 4. Gait independent ambulation with a wheeled walker for greater than 100 feet 5. Stairs independent with a railing up to 5 steps [] 6. Independent with home exercise program [] 7. Improve balance 8. Increase lower extremity strength Plan of Care/Treatment Plan: 1-2x/day, 7 days/week x 1 week. Plan of care has been reviewed with the STATISTICAL ASSISTANT providing the service under Physical Therapy direction. Initiate Physical Therapy intervention for strengthening, bed mobility, transfers, gait, stairs, balance training, use of assistive device. Patient was instructed in frequent ankle pumping and supine straight leg raises. DISCHARGE RECOMMENDATIONS: Patient plans on returning home with her father when she is medically stable. She will require a wheeled walker. TREATMENT CODE/TIME: 9716 06/13 7109 Treatment time: 60 minutes Disclaimer: This note was created using [employer] voice recognition software. It was reviewed for major content. However, there may be multiple small dis crepancies and errors due to the voice recognition aspects of the software.
[2019-07-03 12:33] LABS: Ferritin 1632 ng/mL (8-252)
--- NOTE | 2019-07-03 13:51 | PHA.ADMREV ---
Pharmacy Clinical Review - Admission Clinical Review (Last Reviewed 07/02/19 @ 16:22 by Marilynn lEi NP) DVT prophylaxis (Acute) Bilateral lower extremity edema (Acute) Hypoglycemia (Acute) Acute kidney injury (Acute) Hypoalbuminemia (Acute) Acute on chronic anemia (Acute) Acute urinary retention (Acute) UTI (urinary tract infection) (Acute) No Known Allergies Allergy (Unverified 07/02/19 10:21) Height 5 ft 6 in Weight 56.4 kg - Renal Dosing Renal Dosing: BUN 37 mg/dL (7-18) H 07/03/19 04:30 Creatinine 2.11 mg/dL (0.55-1.02) H 07/03/19 04:30 Medications needing adjustments: Reviewed (est CrCl~ 37.5 mL/min) - Anticoagulation Anticoagulation: Hgb 7.8 g/dL (12.0-15.5) L 07/03/19 04:30 Hct 23.2 % (36.0-46.0) L 07/03/19 04:30 Plt Count 510 x1000/uL (130-400) H 07/03/19 04:30 INR 1.2 (0.9-1.1) H 07/02/19 10:27 Creatinine 2.11 mg/dL (0.55-1.02) H 07/03/19 04:30 - Relevant Labs Sodium 133 mmol/L (136-145) L 07/03/19 04:30 Potassium 4.1 mmol/L (3.5-5.1) D 07/03/19 04:30 Chloride 102 mmol/L (98-107) 07/03/19 04:30 Magnesium 1.3 mg/dL (1.8-2.4) L 07/03/19 04:30 - DM Control DM Control: Glucose 190 mg/dL (74-106) H D 07/03/19 04:30 Hemoglobin A1c 12.2 % (3.8-5.6) H 07/02/19 08:00 Finger Stick Blood Glucose 365 Finger Stick Blood Glucose 365 Finger Stick Blood Glucose 133 Finger Stick Blood Glucose 133 Finger Stick Blood Glucose 133 - Heart Failure/IN Heart Failure/IN: Troponin I < 0.05 ng/Ml (<0.06) 07/02/19 08:50 NT-Pro-B Natriuret Pep 598 pg/mL (<300) H 07/02/19 08:50 - BP Control BP Control: Blood Pressure 105/72 Blood Pressure 107/71 Blood Pressure 104/64
--- NOTE | 2019-07-03 14:21 | DI.VRAD_ITS ---
Addendum created by Oscar Barnes MD on 07/03/2019 2:25:27 PM EST THIS REPORT CONTAINS FINDINGS THAT MAY BE CRITICAL TO PATIENT CARE. The findings were verbally communicated via telephone conference with HENRIETTA Bennett at 2:25 PM EST on 07/03/2019. The findings were acknowledged and understood. Initial report created on 07/03/2019 2:21:25 PM EST PROCEDURE INFORMATION: Exam: US Duplex Lower Extremity Veins Exam date and time: 07/03/2019 1:42 PM Age: 19 years old Clinical indication: Edema, localized; Lower extremity, bilateral TECHNIQUE: Imaging protocol: Real-time duplex ultrasound of the Lower Extremities with 2-D sheridan scale, color Doppler flow and spectral waveform analysis with image documentation. Complete exam focused on the bilateral lower extremity veins. COMPARISON: No relevant prior studies available. FINDINGS: Right deep veins: The common femoral, femoral, and popliteal veins are patent without thrombus. Normal Doppler waveforms. Normal compressibility and/or augmentation response. The profundus femoral vein is noncompressible proximally, containing hypoechoic thrombus. The posterior tibial vein in the calf is patent. Right superficial veins: Saphenofemoral junction is patent without thrombus. Left deep veins: There is occlusive or near occlusive, noncompressible thrombus throughout the left common femoral, femoral, profunda femoral and popliteal veins, extending into the posterior tibial vein in the calf. Left superficial veins: Saphenofemoral junction is patent without thrombus. Lymph nodes: A prominent right inguinal lymph node measures 9 x 9 x 4 mm. Soft tissues: Unremarkable. IMPRESSION: Bilateral deep venous thrombus as described, left more extensive than right. Dictated and Authenticated by: Oscar Barnes MD. Ordering:RUSTY Gilliland MD
--- NOTE | 2019-07-03 14:26 | W.PM.PROGNOT ---
Date of Service Date of service: 07/03/19 Time of Service: 14:26 Assessment and Plan Assessment and plan (1) Diabetes mellitus, insulin dependent (IDDM), uncontrolled: Start date: 07/03/19 Start time: 14:40 Status: Acute Assessment and plan: Since age 9. Has not seen sales service coordinator in years. Has not had follow up with PCP in years. Patient follows own regimen for insulin coverage. A1c 12.2 however not accurate given anemia. Patient states blood sugars tend to run in 300's up on daily basis. Will use moderate scale coverage with carb coverage. Start lantus 20 units and titrate up as needed. Monitor fingersticks. primary special educator consulted. (2) Bilateral lower extremity edema: Start date: 07/03/19 Start time: 14:43 Status: Acute Assessment and plan: Recent travel from [place] on flight. Endorses laying in bed for 4 weeks prior to last hospitalization. Records obtained from [facility] in [place], it does not appear patient had imaging to r/o DVT. Given recent flight and travel u/s done revealing bilateral DVTs. Right deep femoral vein, left with entire leg all vessel occlusion. Started on heparin gtt. Ekg, troponin, echo. If renal function improves will obtain CTA, otherwise VQ scan on Friday. Serial hematest. No signs of distress at this time, denies SOB, CP, not hypoxic, not requiring oxygen continue monitor. (3) Acute deep vein thrombosis (DVT) of right femoral vein: Start date: 07/03/19 Start time: 14:43 Status: Acute Assessment and plan: As above. (4) Acute deep vein thrombosis (DVT) of left lower extremity: Start date: 07/03/19 Start time: 14:43 Status: Acute Assessment and plan: As above. (5) UTI (urinary tract infection): Status: Acute Assessment and plan: Present on Admission. Found to have nitrates with leuko est. greater than 50 WBC. Prolonged QT switch to ceftazidime. Urine culture with no growth. Recently treated for UTI 2 weeks ago with ceftriaxone. (6) Hypoglycemia: Start date: 07/03/19 Start time: 14:37 Status: Acute Assessment and plan: Resolved. as above (7) Acute kidney injury: Start date: 07/03/19 Start time: 14:47 Status: Acute Assessment and plan: Kidney function improving. 2.11 today. Prot/Creat ratio 2.14. Repeat chemistry in the morning. (8) Acute on chronic anemia: Start date: 07/03/19 Start time: 14:50 Status: Acute Assessment and plan: Iron studies demonstrate Iron 17, TIBC 143, Transferrin 12 and ferritin 1212. B12 1310 and folate 8.8, start on iron. Monitor h/h while heparin gtt, q 8 hours. (9) Hypoalbuminemia: Start date: 07/03/19 Start time: 14:52 Status: Acute Assessment and plan: Albumin 1.9. Malnourished. Monitor and offer low carb meal. primary special educator. (10) Acute urinary retention: Start date: 07/03/19 Start time: 14:52 Status: Acute Assessment and plan: Likely neurogenic bladder in a 19 y.o with uncontrolled diabetes. Richardson catheter, renal u/s pending. Urology consult for Friday. (11) DVT prophylaxis: Start date: 07/03/19 Start time: 14:54 Status: Acute Assessment and plan: On heparin gtt as above. (12) Neurogenic bladder: Start date: 07/03/19 Start time: 14:54 Status: Acute Assessment and plan: Due to uncontrolled type 1 IDDM. See above. Above case discussed with Dr. Duncan who is in agreement. Subjective Subjective Patient reports: other Interval history since last seen: Sitting up in chair when entering room. Concern for DVT following flight from [place] days ago. Venous study positive for DVT bilateral legs. Left all vessels entire leg, right deep femoral vein. Contacting hospital in [place] for more records. Per patient no u/s in [place] despite presenting to hospital with edema. EKG ordered, echo, heparin gtt. If kidney function improves will obtain CTA, if unable to obtain CTA will get VQ scan on Friday. Not requiring oxygen, not hypoxic, denies CP, SOB. Hematest negative. Continue to monitor. Exam Const General: cooperative, disheveled, frail appearing and ill appearing chronically Nutritional Appearance: thin and underweight Orientation: alert, awake and oriented x3 HENMT Head: normal to inspection, normocephalic and atraumatic Ears: hearing grossly normal bilaterally Face and sinus: normal facial exam Mouth: moist mucous membranes Eyes General: appearance normal, both eyes and all related structures Pupils: PERRL EOM: EOM intact bilaterally Neck Neck: normal visual inspection and full ROM Thyroid: thyroid normal Carotids: normal carotid upstroke Lymphatic: no lymphadenopathy noted and no lymphedema noted Chest Chest: normal inspection of the chest Resp Effort & Inspection: normal respiratory effort Auscultation: clear to auscultation bilaterally Cardio Jugular venous pressure: no JVD Rate: tachycardic Rhythm: regular rhythm Heart Sounds: S1 normal and S2 normal GI Inspection: scaphoid Palpation: soft and no hepatosplenomegaly Auscultation: normal bowel sounds General: No CVA tenderness and deferred Back/Spine/Pelvis Back: no CVA tenderness Thoracic/Lumbar Spine: thoracic and lumbar spine normal to inspection Skin General skin exam: no rashes or lesions noted Hair: brittle and general thinning Neuro General: alert, awake and oriented x3 Extrem General: normal to inspection, full ROM and edema (+3) Laterality: bilateral Psych Appearance: disheveled Speech and Movement: speech and movement normal Mood: congruent mood Affect: normal affect Attitude: cooperative Objective Objective Clinical Data: Abnormal lab results 07/02/19 07/02/19 07/02/19 Range/Units 08:00 09:50 09:50 WBC (4.4-10.8) k/cumm RBC (4.00-5.20) m/cumm Hgb (12.0-15.5) g/dL Hct (36.0-46.0) % Plt Count (130-400) x1000/uL Absolute Neutrophils (1.2-6.7) k/cumm Absolute Monocytes (0.11-0.7) k/cumm PT (9.3-11.0) sec INR (0.9-1.1) Sodium (136-145) mmol/L Carbon Dioxide (21.0-32.0) mmol/L BUN (7-18) mg/dL Creatinine (0.55-1.02) mg/dL Glucose (74-106) mg/dL Hemoglobin A1c 12.2 H (3.8-5.6) % Calcium (8.5-10.1) mg/dL Magnesium (1.8-2.4) mg/dL Iron 17 L (50-170) ug/dL TIBC 143 L (250-450) ug/dL Transferrin % Sat 12 L (15-50) % Ferritin 1632 H (8-252) ng/mL Vitamin B12 1310 H (193-986) pg/mL Folate (8.6-20.0) ng/mL Crossmatch 07/02/19 07/02/19 07/03/19 Range/Units 10:27 10:27 04:30 WBC (4.4-10.8) k/cumm RBC (4.00-5.20) m/cumm Hgb (12.0-15.5) g/dL Hct (36.0-46.0) % Plt Count (130-400) x1000/uL Absolute Neutrophils (1.2-6.7) k/cumm Absolute Monocytes (0.11-0.7) k/cumm PT 11.6 H (9.3-11.0) sec INR 1.2 H (0.9-1.1) Sodium 133 L (136-145) mmol/L Carbon Dioxide 20.4 L (21.0-32.0) mmol/L BUN 37 H (7-18) mg/dL Creatinine 2.11 H (0.55-1.02) mg/dL Glucose 190 H D (74-106) mg/dL Hemoglobin A1c (3.8-5.6) % Calcium 7.9 L (8.5-10.1) mg/dL Magnesium 1.3 L (1.8-2.4) mg/dL Iron (50-170) ug/dL TIBC (250-450) ug/dL Transferrin % Sat (15-50) % Ferritin 1212 H (8-252) ng/mL Vitamin B12 (193-986) pg/mL Folate (8.6-20.0) ng/mL Crossmatch See Detail 07/03/19 07/03/19 07/03/19 Range/Units 04:30 04:30 04:30 WBC 12.71 H (4.4-10.8) k/cumm RBC 2.74 L (4.00-5.20) m/cumm Hgb 7.8 L (12.0-15.5) g/dL Hct 23.2 L (36.0-46.0) % Plt Count 510 H (130-400) x1000/uL Absolute Neutrophils 10.28 H (1.2-6.7) k/cumm Absolute Monocytes 0.99 H (0.11-0.7) k/cumm PT (9.3-11.0) sec INR (0.9-1.1) Sodium (136-145) mmol/L Carbon Dioxide (21.0-32.0) mmol/L BUN (7-18) mg/dL Creatinine (0.55-1.02) mg/dL Glucose (74-106) mg/dL Hemoglobin A1c (3.8-5.6) % Calcium (8.5-10.1) mg/dL Magnesium (1.8-2.4) mg/dL Iron 20 L (50-170) ug/dL TIBC 122 L (250-450) ug/dL Transferrin % Sat (15-50) % Ferritin (8-252) ng/mL Vitamin B12 1352 H (193-986) pg/mL Folate 5.6 L (8.6-20.0) ng/mL Crossmatch Vital Signs Temperature 37.0 C 07/03/19 11:30 Temperature Source Temporal Artery Scan 07/03/19 11:30 Pulse 102 H 07/03/19 11:30 Pulse Rhythm Regular 07/03/19 03:45 Pulse 84 07/02/19 11:10 Respiratory Rate 20 07/03/19 11:30 Respiratory Effort Non-Labored 07/03/19 07:44 Respiratory Depth Normal 07/03/19 07:44 Respiratory Pattern Normal 07/03/19 07:44 Blood Pressure 105/72 07/03/19 11:30 Blood Pressure Mean 83 07/02/19 11:01 Blood Pressure Position Supine 07/02/19 08:20 Pulse Oximetry 99 07/03/19 11:30 Oxygen Delivery Method Room Air 07/03/19 11:30 Oxygen Flow Rate 0 07/03/19 11:30 Pain Level 0 07/02/19 16:06 Comment 07/02/19 08:20 Intake & Output 07/02/19 07/03/19 07/03/19 23:59 11:59 23:59 Intake Total 1296 / 2366 2698.333 / 2698.333 Output Total 9933 / 6376 1999 1300 / 3300 Balance -1029 / -3959 698.333 / -601.667 -1300 / -601.667 Weight 56.4 kg Intake: IV 970 1208.333 / 1208.333 Oral 1490 / 1490 Blood Product 326 / 326 Rbc Leuko Reduced Unit 326 / 326 [id number] Output: Urine 2325 / 6325 2000 / 3300 1300 / 3300 Other: Urine Color Pale Pale Pale Yellow Urine Appearance Cloudy Clear Sediment Comment urine was concentrated notified rn Stool Size Small Stool Characteristics Liquid Laboratory Results WBC 12.71 k/cumm (4.4-10.8) H 07/03/19 04:30 RBC 2.74 m/cumm (4.00-5.20) L 07/03/19 04:30 Hgb 7.8 g/dL (12.0-15.5) L 07/03/19 04:30 Hct 23.2 % (36.0-46.0) L 07/03/19 04:30 MCV 84.7 fL (80-95) 07/03/19 04:30 MCH 28.5 pg (27.0-33.0) 07/03/19 04:30 MCHC 33.6 g/dL (32.0-36.0) 07/03/19 04:30 RDW 12.2 % (11.7-14.6) 07/03/19 04:30 Plt Count 510 x1000/uL (130-400) H 07/03/19 04:30 MPV 8.8 fL (8.0-11.0) 07/03/19 04:30 Immature Gran % 0.6 % 07/03/19 04:30 Neutrophils % 80.9 07/03/19 04:30 Lymphocytes % 10.2 07/03/19 04:30 Monocytes % 7.8 07/03/19 04:30 Eosinophils % 0.2 07/03/19 04:30 Basophils % 0.3 07/03/19 04:30 Absolute Neutrophils 10.28 k/cumm (1.2-6.7) H 07/03/19 04:30 Absolute Lymphocytes 1.30 k/cumm (1.2-3.4) 07/03/19 04:30 Absolute Monocytes 0.99 k/cumm (0.11-0.7) H 07/03/19 04:30 Absolute Eosinophils 0.03 k/cumm (0.0-0.7) 07/03/19 04:30 Absolute Basophils 0.04 k/cumm (0.0-0.2) 07/03/19 04:30 Differential Comment Agrees w/ instrument 07/03/19 04:30 RBC Morphology See below 07/03/19 04:30 Polychromasia Present 07/03/19 04:30 Anisocytosis 1+ 07/03/19 04:30 PT 11.6 sec (9.3-11.0) H 07/02/19 10:27 INR 1.2 (0.9-1.1) H 07/02/19 10:27 APTT 27.9 sec (21.0-31.4) 07/02/19 10:27 Sodium 133 mmol/L (136-145) L 07/03/19 04:30 Potassium 4.1 mmol/L (3.5-5.1) D 07/03/19 04:30 Chloride 102 mmol/L (98-107) 07/03/19 04:30 Carbon Dioxide 20.4 mmol/L (21.0-32.0) L 07/03/19 04:30 Anion Gap 10.6 mmol/L (3-11) 07/03/19 04:30 BUN 37 mg/dL (7-18) H 07/03/19 04:30 Creatinine 2.11 mg/dL (0.55-1.02) H 07/03/19 04:30 Estimated GFR/1.73 m2 29.57 (mL/min/1.73m2) 07/03/19 04:30 Glucose 190 mg/dL (74-106) H D 07/03/19 04:30 Hemoglobin A1c 12.2 % (3.8-5.6) H 07/02/19 08:00 Calcium 7.9 mg/dL (8.5-10.1) L 07/03/19 04:30 Magnesium 1.3 mg/dL (1.8-2.4) L 07/03/19 04:30 Iron 20 ug/dL (50-170) L 07/03/19 04:30 TIBC 122 ug/dL (250-450) L 07/03/19 04:30 Transferrin % Sat 16 % (15-50) 07/03/19 04:30 Ferritin 1212 ng/mL (8-252) H 07/03/19 04:30 Total Bilirubin 0.1 mg/dL (0.2-1.0) L 07/02/19 08:50 AST 13 U/L (15-37) L 07/02/19 08:50 ALT 7 U/L (14-59) L 07/02/19 08:50 Alkaline Phosphatase 152 U/L (46-116) H 07/02/19 08:50 Troponin I < 0.05 ng/Ml (<0.06) 07/02/19 08:50 NT-Pro-B Natriuret Pep 598 pg/mL (<300) H 07/02/19 08:50 Total Protein 8.3 g/dL (6.4-8.2) H 07/02/19 08:50 Albumin 1.9 g/dL (3.4-5.0) L 07/02/19 08:50 Vitamin B12 1352 pg/mL (193-986) H 07/03/19 04:30 Folate 5.6 ng/mL (8.6-20.0) L 07/03/19 04:30 Urine Color Yellow (Yellow) 07/02/19 09:42 Urine Clarity Sl cloudy (Clear) 07/02/19 09:42 Urine pH 6.0 (5-8) 07/02/19 09:42 Ur Specific [place] 1.015 (1.005-1.025) 07/02/19 09:42 Urine Protein Trace mg/dL (Negative) H 07/02/19 09:42 Urine Ketones Negative mg/dL (Negative) 07/02/19 09:42 Urine Blood Moderate (Negative) H 07/02/19 09:42 Urine Nitrite Negative (Negative) 07/02/19 09:42 Urine Bilirubin Negative (Negative) 07/02/19 09:42 Urine Urobilinogen 0.2 EU/dL (Up TO 0.2) 07/02/19 09:42 Ur Leukocyte Esterase Moderate (Negative) H 07/02/19 09:42 Urine RBC 5-10 HPF (0-2) H 07/02/19 09:42 Urine WBC >50 HPF (0-5) H 07/02/19 09:42 Ur Epithelial Cells Negative HPF (Negative) 07/02/19 09:42 Urine Crystals Negative HPF (Negative) 07/02/19 09:42 Urine Bacteria Moderate HPF (Negative) 07/02/19 09:42 Urine Casts Negative LPF (Negative) 07/02/19 09:42 Urine Mucus Negative (Negative) 07/02/19 09:42 Urine Other Moderate yeast (Negative) 07/02/19 09:42 Ur Culture Indicated? Yes 07/02/19 09:42 Ur Random Creatinine 11.03 mg/dL 07/03/19 08:30 U Random Total Protein 23.7 mg/dL 07/03/19 08:30 U [place] Prot/Creat Ratio 2.14 07/03/19 08:30 Urine Glucose 500 mg/dL (Negative) H 07/02/19 09:42 Urine Opiates Screen Negative (Negative) 07/02/19 09:42 Urine Methadone Screen Negative (Negative) 07/02/19 09:42 Ur Barbiturates Screen Negative (Negative) 07/02/19 09:42 Ur Tricyclics Screen Negative (Negative) 07/02/19 09:42 Ur Amphetamines Screen Negative (Negative) 07/02/19 09:42 U Benzodiazepines Scrn Negative (Negative) 07/02/19 09:42 Urine Cocaine Screen Negative (Negative) 07/02/19 09:42 Ur THC Screen Negative (Negative) 07/02/19 09:42 Patient ABO/Rh O Negative 07/02/19 10:27 Antibody Screen Negative 07/02/19 10:27 Crossmatch See Detail 07/02/19 10:27
[2019-07-03] MEDS: Normal Saline Flush 10 ML SYR IVP ×2 (14:37→16:33)
[2019-07-03 15:12] LABS: Troponin I < 0.05 ng/Ml (<0.06)
[2019-07-03 16:31] LABS: HCT 23.8 % (36.0-46.0); HGB 7.9 g/dL (12.0-15.5)
[2019-07-03] MEDS: cefTAZidime 1,000 MG in Normal Saline 100 ML 200 MG IVPB ×2 (16:33→23:34)
[2019-07-03] MEDS: Gabapentin 100 MG CAP 300 MG PO (20:45)
[2019-07-03 21:09] LABS: PTT Activated 36.3 sec (21.0-31.4)
[2019-07-03 21:51] LABS: HCT 24.3 % (36.0-46.0); HGB 8.1 g/dL (12.0-15.5)
[2019-07-04 00:20] VITALS: TEMP 37.5
[2019-07-04 03:40] VITALS: BP 117/81; PULSE 95; RESP 18; TEMP 37.9; O2SAT 98
[2019-07-04 04:06] LABS: PTT Activated 36.3 sec (21.0-31.4)
[2019-07-04 06:48] LABS: Abs Immature Grans 0.08 k/cumm (0.0-0.09); Absolute Basophil Count 0.05 k/cumm (0.0-0.2); Absolute Eosinophil Count 0.09 k/cumm (0.0-0.7); Absolute Lymphocyte Count 1.97 k/cumm (1.2-3.4); Absolute Monocyte Count 0.92 k/cumm (0.11-0.7); Absolute Neutrophil Count 8.73 k/cumm (1.2-6.7); Basophils % 0.4; Eosinophils % 0.8; HCT 25.2 % (36.0-46.0); HGB 8.3 g/dL (12.0-15.5); Immature Grans % 0.7 %; Lymphocytes % 16.6; Mean Corp. HGB Concentration 32.9 g/dL (32.0-36.0); Mean Corpuscular Hemoglobin 27.9 pg (27.0-33.0); Mean Corpuscular Volume 84.6 fL (80-95); Mean Platelet Volume 8.8 fL (8.0-11.0); Monocytes % 7.8; Neutrophils % 73.7; Platelet Count 515 x1000/uL (130-400); RBC 2.98 m/cumm (4.00-5.20); RBC Distribution Width 12.5 % (11.7-14.6); White Blood Cell Count 11.84 k/cumm (4.4-10.8)
[2019-07-04 06:58] LABS: Anion Gap 9.9 mmol/L (3-11); BUN 32 mg/dL (7-18); CO2 21.1 mmol/L (21.0-32.0); CREATININE 1.77 mg/dL (0.55-1.02); Calcium 8.4 mg/dL (8.5-10.1); Chloride 100 mmol/L (98-107); Estimated GFR 36.21 (mL/min/1.73m2); Glucose 288 mg/dL (74-106); Potassium 5.2 mmol/L (3.5-5.1); Sodium 131 mmol/L (136-145)
[2019-07-04 06:59] LABS: INR 1.1 (0.9-1.1); Prothrombin Time 10.6 sec (9.3-11.0)
[2019-07-04 07:04] LABS: Calculated LDL 46 mg/dL (<100); Cholesterol 92 mg/dL (<200); HDL Cholesterol 27 mg/dL (40-60); Magnesium 2.1 mg/dL (1.8-2.4); Triglyceride 99 mg/dL (<150)
[2019-07-04 07:09] LABS: Diff Comment Agrees w/ Instrument; Hypochromasia 2+; Polychromasia Present
[2019-07-04 08:00] VITALS: BP 103/71; PULSE 102; RESP 16; TEMP 37.7
[2019-07-04] MEDS: Insulin Aspart 300 UNITS/3 ML PEN SC ×6 (09:13→21:53)
[2019-07-04] MEDS: Insulin Glargine 300 UNITS/3 ML PEN 20 UNITS SC (09:13)
[2019-07-04] MEDS: cefTAZidime 1,000 MG in Normal Saline 100 ML 200 MG IVPB ×2 (09:14→15:46)
[2019-07-04] MEDS: Ferrous Sulfate 325 MG TAB PO (09:15)
[2019-07-04] MEDS: Gabapentin 100 MG CAP 300 MG PO ×3 (09:15→19:39)
[2019-07-04] MEDS: Omeprazole 10 MG CAPCR PO (09:15)
--- NOTE | 2019-07-04 10:00 | DI.US_ITS ---
APPROVED REPORT EXAM: Comprehensive 2D, Doppler, and color-flow Echocardiogram Patient Location: In-Patient Room/Bed: 212A Channel Marketing Specialist: Celine Hernandez RDCS (AE) Indications: r/o pul htn Conclusion Left Ventricle : The left ventricle is normal size. The left ventricular systolic function is normal . There is normal left ventricular wall thickness. There is normal LV segmental wall motion. The le ft ventricular diastolic function is normal. LVEF is 55-60%. Right Ventricle : The right ventricle is normal size. The right ventricular systolic function appears normal. Atria : The left atrium size is normal. The right atrium size is normal. Valves: There are no hemodynamically significant valvular lesions. Great Vessels : The IVC is normal in size and collapses >50% with inspiration. There is not enough t ricuspid regurgitation to estimate RVSP. There are no prior echocardiograms available for comparison. Wall motion Left Ventricle The left ventricle is normal size. The left ventricular systolic function is normal. There is normal left ventricular wall thickness. There is normal LV segmental wall motion. The left ventricular diast olic function is normal. LVEF is 55-60%. Right Ventricle The right ventricle is normal size. The right ventricular systolic function appears normal. Atria The left atrium size is normal. The right atrium size is normal. Aortic Valve Aortic valve is trileaflet. The aortic valve is normal in structure. There is no aortic valvular sten osis. No aortic regurgitation is present. Mitral Valve The mitral valve is normal in structure. No evidence of mitral valve stenosis. Trace mitral regurgita tion. Tricuspid Valve The tricuspid valve is normal in structure. There is no tricuspid valve stenosis. Trace tricuspid reg urgitation. Pulmonic Valve The pulmonary valve is normal in structure. There is no pulmonic valvular stenosis. There is no pulmo marcela valvular regurgitation. Great Vessels The aortic root is normal in size. The ascending aorta size is normal. The IVC is normal in size and collapses >50% with inspiration. There is not enough tricuspid regurgitation to estimate RVSP. Pericardium There is no pericardial effusion. 2D Dimensions IVSD d PLAX 0.64 cm F: 0.6-1.0 LA Volume A4C 35.00 mL LVPW d PLAX 0.72 cm F: 0.6 - 1.0 LA Area A4C s MOD 32.50 cm2 LVID d PLAX 4.10 cm F: 3.8 - 5.2 LVDs 2.35 cm F: 2.2 - 3.5 Ao Root d 2.50 cm F: 2.7 - 3.3 RA Area A4C 8.27 cm2 Ao Asc Diam d 2.37 cm F: 2.3 - 3.1 LV EF Teichholz 73.7 % FS 42.15 % LV Diastology MV E' medial 0.117 (>0.07 m/s) E/A Ratio 1.5 LV E/e MED 7.90 (<14) MV E Vmax 0.93 (0.4-1.3 m/s) MV E' lateral 0.148 (>0.1 m/s) MV A Vmax 0.60 (0.4-1.3 m/s) LV E/e LAT 6.25 (<14) MV E/A Ratio 1.52 MV E/E' medial 7.93 MV E/E' lateral 6.29 Aortic Valve LVOT Area 2.39 cm2 AoV Area Vmax 2.23 cm2 LVOT Vmax 1.09 m/s AoV Area/ BSA (Vmax) 1.36 cm2/m2 LVOT Mean Ronaldo. 0.65 m/s OLIMPIA Mean Ronaldo. 1.85 cm2 LVOT Peak Grad 4.8 mmHg OLIMPIA Mean Ronaldo. Index 1.14 cm2/m2 LVOT Mean Grad 2.0 mmHg LVOT VTI 0.191 m LVOT Diam s 1.70 cm (M/F) 1.5-2.5 AoV Vmax 1.17 (0.5-1.3 m/s) Velocity Ratio 0.93 AoV Mean Ronaldo. 0.83 m/s AoV Peak Grad 5.5 mmHg LVOT SV 45.67 mL AoV Mean Grad 3.1 (<5 mmHg) AoV VTI 0.233 (0.18-0.25 m) AoV Area VTI 1.96 (2.5-4.5 cm2) AoV Area/ BSA (VTI) 1.20 cm/m2 Mitral Valve MV DT 151 (160-240 msec) MV PHT 44 msec MV Area PHT 5.04 cm2 Pulmonary Valve PV Vmax 0.96 (0.5-1.5 m/s) RVOT Peak Gr. 1.62 mmHg PV Peak Grad 3.7 mmHg RVOT Mean Gr. 0.90 mmHg PV Mean Grad 2.1 mmHg RVOT VTI 0.135 m PV VTI 0.190 m RVOT Vmax 0.64 m/s
--- NOTE | 2019-07-04 10:15 | PTTR_ITS ---
Date of service: 07/04/19 Time of Service: 10:15 PT Notes Visit Reasons: UTI, WEAKNESS, HYPOGLYCEMIA 07/04/2019 SUBJECTIVE: Jes stating that she is not having a lot of pain in her LE's but she continues to find movement hard. She is tearful throughout treatment and states she just has a lot going on right now. OBJECTIVE: Seated in her chair. Agreeable to PT treatment. TRANSFERS Sit to stand: SBA Stand to sit: SBA GAIT Device: FWW Weight bearing: Full Assist: SBA Distance: 150' THEREX: Seated LE strengthening including ankle strengthening. She demonstrates weakness bilaterally right greater than left. See flow sheet for details. ASSESSMENT: Pt tolerated PT treatment well today. She appears to be overwhelmed with her current situation and is quite tearful. She puts a good effort into PT today. Pt is cleared to walk in the halls with a family member later today. PLAN: Continue current POC. Treatment time: 25' [id number], [id number] Leanne Gregg, SECTION SUPERVISOR
[2019-07-04] MEDS: Enoxaparin 60 MG/0.6 ML SYR SC ×2 (11:40→21:54)
[2019-07-04] MEDS: Normal Saline 1,000 ML 100 ML IV ×2 (11:40→22:03)
--- NOTE | 2019-07-04 13:46 | PGE_ITS ---
Date of Service Date of service: 07/04/19 Time of Service: 13:46 Assessment and Plan Assessment and plan (1) Diabetes mellitus, insulin dependent (IDDM), uncontrolled: Start date: 07/04/19 Start time: 13:48 Status: Acute Assessment and plan: a1c on admission 12.2. Pt required 45 units insulin per SSI in last 24 hours. Carb coverage added 1 unit per 10 carbs. Lantus increased to 30 units in am. Monitor patient fingersticks and change SSI to resistant if needed. (2) Bilateral lower extremity edema: Start date: 07/04/19 Start time: 14:05 Status: Acute Assessment and plan: Recent travel from [place] on flight. Endorses laying in bed for 4 weeks prior to last hospitalization. Records obtained from [facility] in [place], it does not appear patient had imaging to r/o DVT. Given recent flight and travel u/s done revealing bilateral DVTs. Right deep femoral vein, left with entire leg all vessel occlusion. Heparin dcd unable to get theraputic level. Stable h/h. Enoxaparin 60 mg BID. Ekg, troponin, echo. If renal function improves will obtain CTA, otherwise VQ scan on Friday. Serial hematest. No signs of distress at this time, denies SOB, CP, not hypoxic, not requiring oxygen continue monitor. (3) Acute deep vein thrombosis (DVT) of right femoral vein: Start date: 07/04/19 Start time: 14:09 Status: Acute Assessment and plan: As above. Febrile could be from DVT or UTI. No source of growth. Fevers defervescing. VQ scan for tomorrow. On enoxaparin 60 mg BID. Continue while in patient consider transitioning to DOAC on discharge (4) Acute deep vein thrombosis (DVT) of left lower extremity: Start date: 07/04/19 Start time: 14:10 Status: Acute Assessment and plan: As above. (5) UTI (urinary tract infection): Start date: 07/04/19 Start time: 14:10 Status: Acute Assessment and plan: Present on Admission. Found to have nitrates with leuko est. greater than 50 WBC. Prolonged QT switch to ceftazidime. Urine culture with no growth. Recently treated for UTI 2 weeks ago with ceftriaxone. (6) Hypoglycemia: Start date: 07/04/19 Start time: 15:18 Status: Acute Assessment and plan: Resolved. as above, continue to monitor fingersticks. (7) Acute kidney injury: Start date: 07/04/19 Status: Acute Assessment and plan: Kidney function improving. 1.77 today. NS @ 100, 24 hour protein collection pending. (8) Acute on chronic anemia: Start date: 07/04/19 Start time: 15:19 Status: Acute Assessment and plan: H/H have been stable. Continue iron supplement. (9) Hypoalbuminemia: Start date: 07/04/19 Start time: 15:22 Status: Acute Assessment and plan: Albumin 1.9. Malnourished. Monitor and offer low carb meal. certified lactation educator. (10) Acute urinary retention: Start date: 07/04/19 Start time: 15:23 Status: Acute Assessment and plan: Likely neurogenic bladder in a 19 y.o with uncontr olled diabetes. Aguilera catheter, renal u/s pending. Urology consult for Friday. Per discharge summary at previous hospital straight cath every 12 hours. Will educate patient, make sure adequate supplies and monitor once aguilera is dcd. (11) DVT prophylaxis: Start date: 07/04/19 Start time: 15:24 Status: Acute Assessment and plan: Enoxapain as above. (12) Neuropathy: Start date: 07/04/19 Start time: 15:24 Status: Acute Assessment and plan: c/o pins and needles to bilateral feet and legs with increased weakness. Started on gabapentin 100 mg TID with minimal effectiveness increased to 300 mg TID and monitor effectiveness. 24 hour urine. Based on data possible send out for electropharesis. TSH for am. (13) Neurogenic bladder: Start date: 07/04/19 Start time: 15:24 Status: Acute Assessment and plan: Due to uncontrolled type 1 IDDM. See above. Above case discussed with Dr. Duncan who is in agreement. Subjective Subjective Patient reports: other Interval history since last seen: Pain is improving with gabapentin. Spoke with patient about self catherization as she was recommended to self cath every 12 hours by [facility]. She did not think she needed to because she was voiding. Spoke with her about urinary retention. Awaiting urology consult. She denies SOB, CP. Not hypoxic at this time. Febrile likely from DVT, fever defervescing. Exam Const General: cooperative, disheveled, frail appearing and ill appearing chronically Nutritional Appearance: thin and underweight Orientation: alert, awake and oriented x3 HENMT Head: normal to inspection, normocephalic and atraumatic Ears: hearing grossly normal bilaterally Face and sinus: normal facial exam Mouth: moist mucous membranes Eyes General: appearance normal, both eyes and all related structures Pupils: PERRL EOM: EOM intact bilaterally Neck Neck: normal visual inspection and full ROM Thyroid: thyroid normal Carotids: normal carotid upstroke Lymphatic: no lymphadenopathy noted and no lymphedema noted Chest Chest: normal inspection of the chest Resp Effort & Inspection: normal respiratory effort Auscultation: clear to auscultation bilaterally Cardio Jugular venous pressure: no JVD Rate: tachycardic Rhythm: regular rhythm Heart Sounds: S1 normal and S2 normal GI Inspection: scaphoid Palpation: soft and no hepatosplenomegaly Auscultation: normal bowel sounds General: No CVA tenderness and deferred Back/Spine/Pelvis Back: no CVA tenderness Thoracic/Lumbar Spine: thoracic and lumbar spine normal to inspection Skin General skin exam: no rashes or lesions noted Hair: brittle and general thinning Neuro General: alert, awake and oriented x3 Extrem General: normal to inspection, full ROM and edema (+3) Laterality: bilateral Psych Appearance: disheveled Speech and Movement: speech and movement normal Mood: congruent mood Affect: normal affect Attitude: cooperative Objective Objective Clinical Data: Abnormal lab results 07/03/19 07/03/19 07/03/19 Range/Units 16:18 20:35 21:31 WBC (4.4-10.8) k/cumm RBC (4.00-5.20) m/cumm Hgb 7.9 L 8.1 L (12.0-15.5) g/dL Hct 23.8 L 24.3 L (36.0-46.0) % Plt Count (130-400) x1000/uL Absolute Neutrophils (1.2-6.7) k/cumm Absolute Monocytes (0.11-0.7) k/cumm APTT 36.3 H (21.0-31.4) sec Sodium (136-145) mmol/L Potassium (3.5-5.1) mmol/L BUN (7-18) mg/dL Creatinine (0.55-1.02) mg/dL Glucose (74-106) mg/dL Calcium (8.5-10.1) mg/dL HDL Cholesterol (40-60) mg/dL 07/04/19 07/04/19 07/04/19 Range/Units 03:30 06:20 06:20 WBC (4.4-10.8) k/cumm RBC (4.00-5.20) m/cumm Hgb (12.0-15.5) g/dL Hct (36.0-46.0) % Plt Count (130-400) x1000/uL Absolute Neutrophils (1.2-6.7) k/cumm Absolute Monocytes (0.11-0.7) k/cumm APTT 36.3 H (21.0-31.4) sec Sodium 131 L (136-145) mmol/L Potassium 5.2 H D (3.5-5.1) mmol/L BUN 32 H (7-18) mg/dL Creatinine 1.77 H (0.55-1.02) mg/dL Glucose 288 H (74-106) mg/dL Calcium 8.4 L (8.5-10.1) mg/dL HDL Cholesterol 27 L (40-60) mg/dL 07/04/19 Range/Units 06:20 WBC 11.84 H (4.4-10.8) k/cumm RBC 2.98 L (4.00-5.20) m/cumm Hgb 8.3 L (12.0-15.5) g/dL Hct 25.2 L (36.0-46.0) % Plt Count 515 H (130-400) x1000/uL Absolute Neutrophils 8.73 H (1.2-6.7) k/cumm Absolute Monocytes 0.92 H (0.11-0.7) k/cumm APTT (21.0-31.4) sec Sodium (136-145) mmol/L Potassium (3.5-5.1) mmol/L BUN (7-18) mg/dL Creatinine (0.55-1.02) mg/dL Glucose (74-106) mg/dL Calcium (8.5-10.1) mg/dL HDL Cholesterol (40-60) mg/dL Vital Signs Temperature 37.7 C H 07/04/19 08:00 Temperature Source Tympanic 07/04/19 08:00 Pulse 102 H 07/04/19 08:00 Pulse Rhythm Regular 07/04/19 03:40 Pulse 84 07/02/19 11:10 Respiratory Rate 16 07/04/19 08:00 Respiratory Effort Non-Labored 07/04/19 03:40 Respiratory Depth Normal 07/04/19 03:40 Respiratory Pattern Normal 07/04/19 03:40 Blood Pressure 103/71 07/04/19 08:00 Blood Pressure Mean 83 07/02/19 11:01 Blood Pressure Position Supine 07/02/19 08:20 Pulse Oximetry 98 07/04/19 03:40 Oxygen Delivery Method Room Air 07/04/19 08:00 Oxygen Flow Rate 0 07/04/19 08:00 Pain Level 0 07/02/19 16:06 Comment 07/03/19 20:49 Intake & Output 07/03/19 07/04/19 07/04/19 23:59 11:59 23:59 Intake Total 1411.333 / 4109.666 353.400 / 593.400 240 / 593.400 Output Total 3900 / 5900 3750 / 3750 Balance -2488.667 / -1790.334 -3396.600 / -3156.600 240 / -3156.600 Intake: IV 171.333 / 1379.666 353.400 / 353.400 Oral 1240 / 2730 240 / 240 Output: Urine 3900 / 5900 3750 / 3750 Other: Urine Color Pale Pale Urine Appearance Clear Clear Stool Occult Blood Negative Stool Size Large Stool Characteristics Soft Laboratory Results WBC 11.84 k/cumm (4.4-10.8) H 07/04/19 06:20 RBC 2.98 m/cumm (4.00-5.20) L 07/04/19 06:20 Hgb 8.3 g/dL (12.0-15.5) L 07/04/19 06:20 Hct 25.2 % (36.0-46.0) L 07/04/19 06:20 MCV 84.6 fL (80-95) 07/04/19 06:20 MCH 27.9 pg (27.0-33.0) 07/04/19 06:20 MCHC 32.9 g/dL (32.0-36.0) 07/04/19 06:20 RDW 12.5 % (11.7-14.6) 07/04/19 06:20 Plt Count 515 x1000/uL (130-400) H 07/04/19 06:20 MPV 8.8 fL (8.0-11.0) 07/04/19 06:20 Immature Gran % 0.7 % 07/04/19 06:20 Neutrophils % 73.7 07/04/19 06:20 Lymphocytes % 16.6 07/04/19 06:20 Monocytes % 7.8 07/04/19 06:20 Eosinophils % 0.8 07/04/19 06:20 Basophils % 0.4 07/04/19 06:20 Absolute Neutrophils 8.73 k/cumm (1.2-6.7) H 07/04/19 06:20 Absolute Lymphocytes 1.97 k/cumm (1.2-3.4) 07/04/19 06:20 Absolute Monocytes 0.92 k/cumm (0.11-0.7) H 07/04/19 06:20 Absolute Eosinophils 0.09 k/cumm (0.0-0.7) 07/04/19 06:20 Absolute Basophils 0.05 k/cumm (0.0-0.2) 07/04/19 06:20 Differential Comment Agrees w/ instrument 07/04/19 06:20 RBC Morphology See below 07/04/19 06:20 Polychromasia Present 07/04/19 06:20 Hypochromasia 2+ 07/04/19 06:20 Anisocytosis 1+ 07/03/19 04:30 PT 10.6 sec (9.3-11.0) 07/04/19 06:20 INR 1.1 (0.9-1.1) 07/04/19 06:20 APTT Cancelled 07/04/19 10:20 Sodium 131 mmol/L (136-145) L 07/04/19 06:20 Potassium 5.2 mmol/L (3.5-5.1) H D 07/04/19 06:20 Chloride 100 mmol/L (98-107) 07/04/19 06:20 Carbon Dioxide 21.1 mmol/L (21.0-32.0) 07/04/19 06:20 Anion Gap 9.9 mmol/L (3-11) 07/04/19 06:20 BUN 32 mg/dL (7-18) H 07/04/19 06:20 Creatinine 1.77 mg/dL (0.55-1.02) H 07/04/19 06:20 Estimated GFR/1.73 m2 36.21 (mL/min/1.73m2) 07/04/19 06:20 Glucose 288 mg/dL (74-106) H 07/04/19 06:20 Hemoglobin A1c 12.2 % (3.8-5.6) H 07/02/19 08:00 Calcium 8.4 mg/dL (8.5-10.1) L 07/04/19 06:20 Magnesium 2.1 mg/dL (1.8-2.4) 07/04/19 06:20 Iron 20 ug/dL (50-170) L 07/03/19 04:30 TIBC 122 ug/dL (250-450) L 07/03/19 04:30 Transferrin % Sat 16 % (15-50) 07/03/19 04:30 Ferritin 1212 ng/mL (8-252) H 07/03/19 04:30 Total Bilirubin 0.1 mg/dL (0.2-1.0) L 07/02/19 08:50 AST 13 U/L (15-37) L 07/02/19 08:50 ALT 7 U/L (14-59) L 07/02/19 08:50 Alkaline Phosphatase 152 U/L (46-116) H 07/02/19 08:50 Troponin I < 0.05 ng/Ml (<0.06) 07/03/19 14:40 NT-Pro-B Natriuret Pep 598 pg/mL (<300) H 07/02/19 08:50 Total Protein 8.3 g/dL (6.4-8.2) H 07/02/19 08:50 Albumin 1.9 g/dL (3.4-5.0) L 07/02/19 08:50 Triglycerides 99 mg/dL (<150) 07/04/19 06:20 Total Cholesterol 92 mg/dL (<200) 07/04/19 06:20 LDL Cholesterol, Calc 46 mg/dL (<100) 03/01/20 06:20 HDL Cholesterol 27 mg/dL (40-60) L 07/04/19 06:20 Vitamin B12 1352 pg/mL (193-986) H 07/03/19 04:30 Folate 5.6 ng/mL (8.6-20.0) L 07/03/19 04:30 Urine Color Yellow (Yellow) 07/02/19 09:42 Urine Clarity Sl cloudy (Clear) 07/02/19 09:42 Urine pH 6.0 (5-8) 07/02/19 09:42 Ur Specific [place] 1.015 (1.005-1.025) 07/02/19 09:42 Urine Protein Trace mg/dL (Negative) H 07/02/19 09:42 Urine Ketones Negative mg/dL (Negative) 07/02/19 09:42 Urine Blood Moderate (Negative) H 07/02/19 09:42 Urine Nitrite Negative (Negative) 07/02/19 09:42 Urine Bilirubin Negative (Negative) 07/02/19 09:42 Urine Urobilinogen 0.2 EU/dL (Up TO 0.2) 07/02/19 09:42 Ur Leukocyte Esterase Moderate (Negative) H 07/02/19 09:42 Urine RBC 5-10 HPF (0-2) H 07/02/19 09:42 Urine WBC >50 HPF (0-5) H 07/02/19 09:42 Ur Epithelial Cells Negative HPF (Negative) 07/02/19 09:42 Urine Crystals Negative HPF (Negative) 07/02/19 09:42 Urine Bacteria Moderate HPF (Negative) 07/02/19 09:42 Urine Casts Negative LPF (Negative) 07/02/19 09:42 Urine Mucus Negative (Negative) 07/02/19 09:42 Urine Other Moderate yeast (Negative) 07/02/19 09:42 Ur Culture Indicated? Yes 07/02/19 09:42 Ur Random Creatinine 11.03 mg/dL 07/03/19 08:30 U Random Total Protein 23.7 mg/dL 07/03/19 08:30 U [place] Prot/Creat Ratio 2.14 07/03/19 08:30 Urine Glucose 500 mg/dL (Negative) H 07/02/19 09:42 Stool Campylobacter PCR Cancelled 07/04/19 08:09 Stool Salmonella PCR Cancelled 03/01/20 08:09 Stool Shigella PCR Cancelled 03/01/20 08:09 Urine Opiates Screen Negative (Negative) 07/02/19 09:42 Urine Methadone Screen Negative (Negative) 07/02/19 09:42 Ur Barbiturates Screen Negative (Negative) 07/02/19 09:42 Ur Tricyclics Screen Negative (Negative) 07/02/19 09:42 Ur Amphetamines Screen Negative (Negative) 07/02/19 09:42 U Benzodiazepines Scrn Negative (Negative) 07/02/19 09:42 Urine Cocaine Screen Negative (Negative) 07/02/19 09:42 Ur THC Screen Negative (Negative) 07/02/19 09:42 Shiga Toxin (PCR) Cancelled 07/04/19 08:09 Patient ABO/Rh O Negative 07/02/19 10:27 Antibody Screen Negative 07/02/19 10:27 Crossmatch See Detail 07/02/19 10:27
[2019-07-04 14:22] LABS: Potassium 4.5 mmol/L (3.5-5.1)
--- NOTE | 2019-07-04 14:24 | NUR.NOTE ---
I went into room 212 and seen her dad helping her with her pullup i went and notified the nurse right away because it seemed odd. Nursing Note:
[2019-07-04 17:24] VITALS: BP 105/62; PULSE 88; RESP 16; TEMP 37.1; O2SAT 98
[2019-07-04 19:11] VITALS: BP 113/78; PULSE 102; RESP 18; TEMP 37.2; O2SAT 99
--- NOTE | 2019-07-04 19:28 | PDOC.CMPRO ---
- If Service Date Differs Date of service: 07/04/19 Time of Service: 19:28 Care Management Progress Note S/O: Jes was using the bathroom when CM attempted to meet with her. She was provided a puzzle and adult coloring book today at the suggestion of CM. CM advised that as all of the community resources are not available over the weekend, contacts would be attempted tomorrow to various supports previously suggested. CM has sent a referral to [facility], as well as [facility]. Provider will place the referral for Inspector at [facility]. CM will provide information regarding mental health counseling. Per provider, the Inspector will provide the referral to the proper N[facility]er [facility]. CM will continue to follow. A: Jes is a 19 year old female admitted to [facility] on 07/02/19 with UTI, weakness and hypoglycemia. P: Anticipate Jes will return home when medically cleared. She will receive diabetic and nutritional education while at [facility], and will need close follow up by her new PCP and Endocrinology at [facility]. CM will follow up with Karolyn on Friday to ensure close f/u of concerns with her lack of insurance, as it is an access to care issue. Her father will drive her home via private vehicle when ready. CM will continue to follow and support discharge planning considerations.
[2019-07-05] VITALS (8 sets, daily range): BP systolic 88–123; BP diastolic 56–83; PULSE 99–117; RESP 16–20; TEMP 36.4–38.2; O2SAT 96–99
[2019-07-05] MEDS: cefTAZidime 1,000 MG in Normal Saline 100 ML 200 MG IVPB ×4 (00:37→23:47)
[2019-07-05 06:51] LABS: Absolute Basophil Count 0.05 k/cumm (0.0-0.2); Absolute Eosinophil Count 0.13 k/cumm (0.0-0.7); Absolute Lymphocyte Count 2.05 k/cumm (1.2-3.4); Absolute Monocyte Count 1.12 k/cumm (0.11-0.7); Basophils % 0.4; Eosinophils % 1.1; HCT 23.4 % (36.0-46.0); HGB 7.4 g/dL (12.0-15.5); Immature Grans % 0.8 %; Lymphocytes % 17.2; Mean Corp. HGB Concentration 31.6 g/dL (32.0-36.0); Mean Corpuscular Hemoglobin 27.4 pg (27.0-33.0); Mean Corpuscular Volume 86.7 fL (80-95); Monocytes % 9.4; Neutrophils % 71.1; Platelet Count 534 x1000/uL (130-400); RBC Distribution Width 12.6 % (11.7-14.6)
[2019-07-05 06:57] LABS: Absolute Neutrophil Count 8.46 k/cumm (1.2-6.7)
[2019-07-05 07:06] LABS: Anion Gap 9.7 mmol/L (3-11); BUN 29 mg/dL (7-18); CO2 21.3 mmol/L (21.0-32.0); CREATININE 1.71 mg/dL (0.55-1.02); Chloride 102 mmol/L (98-107); Estimated GFR 37.68 (mL/min/1.73m2); Glucose 344 mg/dL (74-106); Potassium 4.8 mmol/L (3.5-5.1); Sodium 133 mmol/L (136-145); TSH (W/Ref FT4) 3.31 uIU/mL (0.36-3.74)
[2019-07-05 07:23] LABS: Anisocytosis 1+; Diff Comment RBC Morph Reviewed; Hypochromasia 2+; Polychromasia Present
--- NOTE | 2019-07-05 07:30 | DI.NM_ITS ---
EXAM: NM LUNG SCAN VENT AND PERF GRP CLINICAL HISTORY: BILATERAL DVT. R/O PE. COMPARISON: XR PORTABLE CHEST AP from 07/02/2019 FINDINGS: Both the ventilation and perfusion scans have a homogeneous appearance. IMPRESSION: Normal ventilation/perfusion lung scan.
[2019-07-05] MEDS: Normal Saline 1,000 ML 100 ML IV (08:26)
[2019-07-05] MEDS: Insulin Aspart 300 UNITS/3 ML PEN SC ×7 (08:27→22:38)
[2019-07-05] MEDS: Gabapentin 100 MG CAP 300 MG PO ×3 (08:29→20:38)
[2019-07-05] MEDS: Omeprazole 10 MG CAPCR PO (08:29)
[2019-07-05] MEDS: Insulin Glargine 300 UNITS/3 ML PEN 40 UNITS SC (08:29)
[2019-07-05] MEDS: Ferrous Sulfate 325 MG TAB PO (08:30)
[2019-07-05 09:45] LABS: Bilirubin Negative (Negative); Blood Moderate (Negative); Clarity Clear (Clear); Glucose 250 mg/dL (Negative); Ketones Negative (Negative); Leukocyte Esterase Moderate (Negative); Nitrite Negative (Negative); Urobilinogen 0.2 EU/dL (Up TO 0.2); pH 6.5 (5-8)
--- NOTE | 2019-07-05 09:45 | PDOC.CMPRO ---
- If Service Date Differs Date of service: 07/05/19 Time of Service: 09:45 Care Management Progress Note S/O:Jes is alert and engaged with CM she makes good eye contact and occasionally smiles during interaction. Jes states she does not check her blood sugar she does not like to prick her finger. Father would like to have her have a continuos glucose monitor, he is worried about her not checking her blood sugar frequent enough. Jes states she is able to give herself insulin and check her own blood sugars when she needs to. She states she has felt depressed for a long time, she states she has been suicidal in the past however not now. Jes feels her father is her greatest support she is open to meeting with psychiatry and ongoing therapist. She would like to establish care with an gis scientist she has been to [facility] [place]. FABIOLA is working with Karolyn to establish Medicaid for the patient. She does not have an income at this time and is in the process of applying for disability. She is establishing care with [facility] and would benefit from behavioral health at that practice. FABIOLA is referring patient to [facility] for community performance management consultant. CM reviewed the case with who will plan to see the patient while she is here. A: Jes is a 19 year old female admitted to [facility] on 07/02/19 with UTI, weakness and hypoglycemia. P: Anticipate Jes will return home when medically cleared. She will receive diabetic and nutritional education while at [facility], and will need close follow up by her new PCP and Endocrinology [place] [facility] referral through [place] Medicaid, and behavioral health referral at [facility].Her father will drive her home via private vehicle when ready. CM will continue to follow and support discharge planning considerations.
[2019-07-05 09:52] LABS: *AMPHETAMINES SCREEN URINE Negative (Negative); *BARBITURATES SCREEN URINE Negative (Negative); *BENZODIAZEPINES SCREEN URINE Negative (Negative); Cannabinoids THC Negative (Negative); Cocaine Screen,Urine Negative (Negative); METHADONE URINE SCREEN Negative (Negative); OPIATES URINE SCREEN Negative (Negative)
[2019-07-05 09:58] LABS: Bacteria Negative HPF (Negative); Epithelial Cells Negative HPF (Negative); Other Cells Rare Yeast (Negative); WBC 20-50 HPF (0-5)
[2019-07-05 09:58] LABS: Tricyclic Antidepressants Negative (Negative)
[2019-07-05 09:59] LABS: C & S Indicated? Yes; Casts Negative LPF (Negative); Crystals Negative HPF (Negative); Mucus Trace (Negative)
[2019-07-05] MEDS: Normal Saline Flush 10 ML SYR IVP ×2 (10:01→23:48)
[2019-07-05] MEDS: Enoxaparin 60 MG/0.6 ML SYR SC ×2 (10:01→22:39)
[2019-07-05 11:13] LABS: PROTEIN 26.2 mg/dL (0.0-11.9)
[2019-07-05 11:14] LABS: Campylobacter PCR Negative (Negative); Salmonella PCR Negative (Negative); Shiga Toxin PCR Negative (Negative); Shigella/Enteroinvasive Ecoli Negative (Negative)
[2019-07-05 11:21] LABS: TOTAL PROTEIN,URINE TIMED 1205.2 mg/24hr (0.0-149.1); Total Volume 4600 ml
--- NOTE | 2019-07-05 13:36 | PT.INTREAT ---
Date of service: 07/05/19 Time of Service: 13:37 PT Notes Visit Reasons: UTI, WEAKNESS, HYPOGLYCEMIA 07/05/2019 SUBJECTIVE: Jes stating she is doing a little better than yesterday. Her right leg is moving better and is having less pain. The left leg continues to be quite swollen and she has more difficult moving the leg a foot. OBJECTIVE: Seated in her recliner. Agreeable to PT treatment. TRANSFERS Sit to stand: SBA Stand to sit: SBA GAIT Device: FWW Weight bearing: Full Assist: SBA Distance: 200'+150' THEREX: Seated LE strengthening exercises. Requires AAROM at bilateral ankles left greater than right. Performs standing weight shifts and squats at the bar for UE support. See flow sheet for details. ASSESSMENT: Pt progressing with PT. She was able to increase her gait distance and progress to some standing exercises today. She continues to feel weak bilateral LE's and does not feel safe to walk without the walker at this point. Pt will benefit from continues PT services for improvement in her LE strength and safety with gait and balance. PLAN: Continue current POC. Treatment time: 25' [id number], [id number] Leanne Gregg, [place]
--- NOTE | 2019-07-05 14:02 | UCONE_ITS ---
Date of service: 07/05/19 Time of Service: 14:02 Assessment and Plan Assessment and plan (1) Urinary retention with incomplete bladder emptying: Status: Acute Assessment and plan: Unfortunately, we have nothing medically or surgically to help these patients void to completion. These patients are gen erally treated with timed voiding and clean intermittent catheterization. Our goal is to keep there bladder volumes less than 500 cc at a time. This particular patient had no sensation that her bladder was full even with 2 L present. Her father tells me that when they were in a hospital in [place], she had no sensation with 4 L in her bladder. We will start her on timed voiding and intermittent catheterization tomorrow morning. I will place an order to remove the catheter and start the regimen tomorrow. We can adjust the frequency of catheterizations based on the volumes obtained both by voiding and by catheterizing. It would be in the patient's best interest for her to establish with a brass instrument repair technician given her elevated serum creatinine and proteinuria History of Present Illness History of Present Illness Chief Complaint: Urinary retention Narrative: This is a 19-year-old woman who was diagnosed as having diabetes when she was a teenager. She has been poorly controlled as evidenced by a hemoglobin A1c over 12 on admission. She was admitted after a hypoglycemic event. She was found to have over 2 L of urine in her bladder, so a Richardson catheter was placed. Based on the urine appearance, it was felt she likely had a urinary tract infection. Her culture actually grew gram-positive's with no uropathogens. She had been living in [place] and apparently had a similar hospitalization there. Her father tells me that when Jes was in the hospital in [place], she had over 4 L of urine in her bladder. At some point, she began having incontinence. She was given a bladder relaxer. She does not recall if any type of bladder scan or residual urine was checked when the medication was started. She does not recall being taught intermittent catheterization before she presented to our hospital. When her Richardson catheter was placed, she did not sense that her bladder was full. She describes a history of urinary tract infections, but I do not know the exact organisms that may have been involved. She has no known history of kidney stones. She has not had any urologic surgery as far as she recalls. Review of Systems Narrative: No fevers or chills No dysphasia. Wears glasses No thyroid dysfunction No shortness of breath, cough or hemoptysis No chest pain or palpitations No hepatitis, ulcers, jaundice No seizures. Describes [id number] sensation in the lower extremities No bleeding disorders No gout or arthralgia PFSH Medical History Diabetes (Chronic) Surgical History No significant past surgical history (Acute) Social History Smoking/Tobacco Use Status: Never Alcohol Intake: never Drug use: Never Exam Narrative Exam Narrative: She appears thin and chronically ill Her vital signs are documented elsewhere Her urine is grossly clear in her Richardson catheter She is awake and alert I reviewed her renal ultrasound which was taken after her bladder was drained of 2 L of urine. There is mild dilation bilaterally' Results Last Vital Signs Temp 37.2 C 07/05/19 07:37 Pulse 99 H 07/05/19 07:37 Resp 18 07/05/19 07:37 BP 123/83 07/05/19 07:37 Pulse Ox 99 07/05/19 07:37 Labs Result diagrams: 07/05/19 06:15 07/05/19 06:15 Labs: Laboratory Results - last 24 hr 07/04/19 07/05/19 07/05/19 14:00 06:15 06:15 WBC 11.90 H RBC 2.70 L Hgb 7.4 L Hct 23.4 L MCV 86.7 MCH 27.4 MCHC 31.6 L RDW 12.6 Plt Count 534 H MPV 9.0 Immature Gran % 0.8 Neutrophils % 71.1 Lymphocytes % 17.2 Monocytes % 9.4 Eosinophils % 1.1 Basophils % 0.4 Absolute Neutrophils 8.46 H Absolute Lymphocytes 2.05 Absolute Monocytes 1.12 H Absolute Eosinophils 0.13 Absolute Basophils 0.05 Differential Comment Rbc morph reviewed RBC Morphology See below Polychromasia Present Hypochromasia 2+ Anisocytosis 1+ Sodium 133 L Potassium 4.5 4.8 Chloride 102 Carbon Dioxide 21.3 Anion Gap 9.7 BUN 29 H Creatinine 1.71 H Estimated GFR/1.73 m2 37.68 Glucose 344 H Calcium 8.0 L TSH 3.31 Urine Color Urine Clarity Urine pH Ur Specific [place] Urine Protein Urine Ketones Urine Blood Urine Nitrite Urine Bilirubin Urine Urobilinogen Ur Leukocyte Esterase Urine RBC Urine WBC Ur Epithelial Cells Urine Crystals Urine Bacteria Urine Casts Urine Mucus Urine Other Ur Culture Indicated? U Random Total Protein Urine Total Volume Ur Total Protein 24 Hr Urine Glucose Urine Opiates Screen Urine Methadone Screen Ur Barbiturates Screen Ur Tricyclics Screen Ur Amphetamines Screen U Benzodiazepines Scrn Urine Cocaine Screen Ur THC Screen 07/05/19 07/05/19 07/05/19 07:54 07:54 09:20 WBC RBC Hgb Hct MCV MCH MCHC RDW Plt Count MPV Immature Gran % Neutrophils % Lymphocytes % Monocytes % Eosinophils % Basophils % Absolute Neutrophils Absolute Lymphocytes Absolute Monocytes Absolute Eosinophils Absolute Basophils Differential Comment RBC Morphology Polychromasia Hypochromasia Anisocytosis Sodium Potassium Chloride Carbon Dioxide Anion Gap BUN Creatinine Estimated GFR/1.73 m2 Glucose Calcium TSH Urine Color Yellow Urine Clarity Clear Urine pH 6.5 Ur Specific [place] 1.010 Urine Protein Negative Urine Ketones Negative Urine Blood Moderate H Urine Nitrite Negative Urine Bilirubin Negative Urine Urobilinogen 0.2 Ur Leukocyte Esterase Moderate H Urine RBC 3-5 H Urine WBC 20-50 H Ur Epithelial Cells Negative Urine Crystals Negative Urine Bacteria Negative Urine Casts Negative Urine Mucus Trace Urine Other Rare yeast Ur Culture Indicated? Yes U Random Total Protein 26.2 H Urine Total Volume 4600 Ur Total Protein 24 Hr 1205.2 H Urine Glucose 250 H Urine Opiates Screen Negative Urine Methadone Screen Negative Ur Barbiturates Screen Negative Ur Tricyclics Screen Negative Ur Amphetamines Screen Negative U Benzodiazepines Scrn Negative Urine Cocaine Screen Negative Ur THC Screen Negative
--- NOTE | 2019-07-05 14:16 | W.PM.PROGNOT ---
Date of Service Date of service: 07/05/19 Time of Service: 14:16 Assessment and Plan Assessment and plan (1) Diabetes mellitus, insulin dependent (IDDM), uncontrolled: Start date: 07/05/19 Start time: 14:18 Status: Acute Assessment and plan: Continue Carb coverage. personal development educator to see patient. Fingersticks in 200-300's. SSI changed to resistant. Will continue working on managing blood sugars. A1C 12.2, lantus dose increased to 40 units. Consider increase or adding night time lantus if sugars continue in 200-300 range. On discharge she will need follow up with endocrinology. (2) Bilateral lower extremity edema: Start date: 07/05/19 Start time: 14:21 Status: Acute Assessment and plan: Confirmed DVT to bilateral extremities. On enoxaparain 60 mg BID. Increase in edema to LLE, IVF dcd. Continue to work with PT. (3) Acute deep vein thrombosis (DVT) of right femoral vein: Start date: 07/05/19 Start time: 14:24 Status: Acute Assessment and plan: As above. Febrile could be from DVT or UTI. No source of growth. Fevers defervescing. VQ scan pending. On enoxaparin 60 mg BID. Continue while inpatient consider transitioning to DOAC on discharge (4) Acute deep vein thrombosis (DVT) of left lower extremity: Start date: 07/05/19 Start time: 14:24 Status: Acute Assessment and plan: As above. (5) UTI (urinary tract infection): Start date: 07/05/19 Start time: 14:24 Status: Acute Assessment and plan: Present on Admission. repeat u/a improving leuk est moderate with 20-50 WBC. Repeat urine culture pending. Urology to see patient continue catheter at this time. Blood cultures NGTD. Day 3 ceftazidime. (6) Hypoglycemia: Start date: 07/05/19 Start time: 14:26 Status: Acute Assessment and plan: Resolved. as above, continue to monitor fingersticks. (7) Acute kidney injury: Start date: 07/05/19 Start time: 14:27 Status: Acute Assessment and plan: Kidney function improving. 1.71 today. Urine random total protein 2.62. sent for electrophariesis, pending at this time. (8) Acute on chronic anemia: Start date: 07/05/19 Start time: 14:27 Status: Acute Assessment and plan: Hemoglobin 7.4 today. Likely dilutional. Will monitor H/H daily. Asymptomatic with 7.4 hemoglobin. Consider transfusion under 7. (9) Hypoalbuminemia: Start date: 07/05/19 Start time: 14:29 Status: Acute Assessment and plan: Albumin 1.9. Malnourished. Monitor and offer low carb meal. personal development educator. (10) Acute urinary retention: Start date: 07/05/19 Start time: 14:29 Status: Acute Assessment and plan: Dr. Salcido to see patient. Recommendation leave aguilera in place to am. Bladder train every 2 hours. With education on self catherizations. (11) DVT prophylaxis: Start date: 07/05/19 Start time: 14:31 Status: Acute Assessment and plan: Enoxapain as above. (12) Neuropathy: Start date: 07/05/19 Start time: 14:31 Status: Acute Assessment and plan: Improved with gabapentin. Concern about weakness and neuropathy in 19 y.o type 1. Consult neurology. (13) Neurogenic bladder: Start date: 07/05/19 Start time: 14:31 Status: Acute Assessment and plan: Due to uncontrolled type 1 IDDM. See above. Above case discussed with Dr. Duncan who is in agreement. Subjective Subjective Patient reports: feels better Interval history since last seen: Mrs. Martinez is feeling a little better today. There was an increase in edema to LLE, IVF dcd. VQ scan pending. Urology to see patient today. Neurology consulted due to patient weakness and decreased rectal tone. Denies CP, SOB, N/V/D. Exam Const General: cooperative, disheveled, frail appearing and ill appearing chronically Nutritional Appearance: thin and underweight Orientation: alert, awake and oriented x3 HENMT Head: normal to inspection, normocephalic and atraumatic Ears: hearing grossly normal bilaterally Face and sinus: normal facial exam Mouth: moist mucous membranes Eyes General: appearance normal, both eyes and all related structures Pupils: PERRL EOM: EOM intact bilaterally Neck Neck: normal visual inspection and full ROM Thyroid: thyroid normal Carotids: normal carotid upstroke Lymphatic: no lymphadenopathy noted and no lymphedema noted Chest Chest: normal inspection of the chest Resp Effort & Inspection: normal respiratory effort Auscultation: diminished lung sounds Cardio Jugular venous pressure: no JVD Rate: tachycardic Rhythm: regular rhythm Heart Sounds: S1 normal and S2 normal GI Inspection: scaphoid Palpation: soft and no hepatosplenomegaly Auscultation: normal bowel sounds General: No CVA tenderness and deferred Back/Spine/Pelvis Back: no CVA tenderness Thoracic/Lumbar Spine: thoracic and lumbar spine normal to inspection Skin General skin exam: no rashes or lesions noted Hair: brittle and general thinning Neuro General: alert, awake and oriented x3 Extrem General: normal to inspection, full ROM and edema (+3) Laterality: bilateral Psych Appearance: disheveled Speech and Movement: speech and movement normal Mood: congruent mood Affect: normal affect Attitude: cooperative Objective Objective Clinical Data: Abnormal lab results 07/05/19 07/05/19 07/05/19 Range/Units 06:15 06:15 07:54 WBC 11.90 H (4.4-10.8) k/cumm RBC 2.70 L (4.00-5.20) m/cumm Hgb 7.4 L (12.0-15.5) g/dL Hct 23.4 L (36.0-46.0) % MCHC 31.6 L (32.0-36.0) g/dL Plt Count 534 H (130-400) x1000/uL Absolute Neutrophils 8.46 H (1.2-6.7) k/cumm Absolute Monocytes 1.12 H (0.11-0.7) k/cumm Sodium 133 L (136-145) mmol/L BUN 29 H (7-18) mg/dL Creatinine 1.71 H (0.55-1.02) mg/dL Glucose 344 H (74-106) mg/dL Calcium 8.0 L (8.5-10.1) mg/dL Urine Blood (Negative) Ur Leukocyte Esterase (Negative) Urine RBC (0-2) HPF Urine WBC (0-5) HPF U Random Total Protein 26.2 H (0.0-11.9) mg/dL Ur Total Protein 24 Hr 1205.2 H (0.0-149.1) mg/24hr Urine Glucose (Negative) mg/dL 07/05/19 Range/Units 09:20 WBC (4.4-10.8) k/cumm RBC (4.00-5.20) m/cumm Hgb (12.0-15.5) g/dL Hct (36.0-46.0) % MCHC (32.0-36.0) g/dL Plt Count (130-400) x1000/uL Absolute Neutrophils (1.2-6.7) k/cumm Absolute Monocytes (0.11-0.7) k/cumm Sodium (136-145) mmol/L BUN (7-18) mg/dL Creatinine (0.55-1.02) mg/dL Glucose (74-106) mg/dL Calcium (8.5-10.1) mg/dL Urine Blood Moderate H (Negative) Ur Leukocyte Esterase Moderate H (Negative) Urine RBC 3-5 H (0-2) HPF Urine WBC 20-50 H (0-5) HPF U Random Total Protein (0.0-11.9) mg/dL Ur Total Protein 24 Hr (0.0-149.1) mg/24hr Urine Glucose 250 H (Negative) mg/dL Vital Signs Temperature 37.2 C 07/05/19 07:37 Temperature Source Tympanic 07/05/19 07:37 Pulse 99 H 07/05/19 07:37 Pulse Rhythm Regular 07/05/19 10:42 Pulse 84 07/02/19 11:10 Respiratory Rate 18 07/05/19 07:37 Respiratory Effort Non-Labored 07/05/19 10:42 Respiratory Depth Normal 07/05/19 10:42 Respiratory Pattern Normal 07/05/19 10:42 Blood Pressure 123/83 07/05/19 07:37 Blood Pressure Mean 83 07/02/19 11:01 Blood Pressure Position Supine 07/02/19 08:20 Pulse Oximetry 99 07/05/19 07:37 Oxygen Delivery Method Room Air 07/05/19 07:37 Oxygen Flow Rate 0 07/05/19 07:37 Pain Level 0 07/05/19 07:37 Comment 07/03/19 20:49 Intake & Output 07/04/19 07/05/19 07/05/19 23:59 11:59 23:59 Intake Total 1790 / 2143.400 2076.667 / 2076.667 Output Total 2300 / 6050 2850 / 2850 Balance -510 / -3906.600 -773.333 / -773.333 Intake: IV 1100 / 7676.700 8006.667 / 1356.667 Oral 690 / 690 720 / 720 Output: Urine 2300 / 6050 2850 / 2850 Other: Urine Color Pale Pale Yellow Yellow Urine Appearance Clear Clear Comment Urine is emptied into the container for 24 hour collection. urine was concentrated Stool Occult Blood Negative Stool Size Moderate Large Stool Characteristics Soft Soft Laboratory Results WBC 11.90 k/cumm (4.4-10.8) H 07/05/19 06:15 RBC 2.70 m/cumm (4.00-5.20) L 07/05/19 06:15 Hgb 7.4 g/dL (12.0-15.5) L 07/05/19 06:15 Hct 23.4 % (36.0-46.0) L 07/05/19 06:15 MCV 86.7 fL (80-95) 07/05/19 06:15 MCH 27.4 pg (27.0-33.0) 07/05/19 06:15 MCHC 31.6 g/dL (32.0-36.0) L 07/05/19 06:15 RDW 12.6 % (11.7-14.6) 07/05/19 06:15 Plt Count 534 x1000/uL (130-400) H 07/05/19 06:15 MPV 9.0 fL (8.0-11.0) 07/05/19 06:15 Immature Gran % 0.8 % 07/05/19 06:15 Neutrophils % 71.1 07/05/19 06:15 Lymphocytes % 17.2 07/05/19 06:15 Monocytes % 9.4 07/05/19 06:15 Eosinophils % 1.1 07/05/19 06:15 Basophils % 0.4 07/05/19 06:15 Absolute Neutrophils 8.46 k/cumm (1.2-6.7) H 07/05/19 06:15 Absolute Lymphocytes 2.05 k/cumm (1.2-3.4) 07/05/19 06:15 Absolute Monocytes 1.12 k/cumm (0.11-0.7) H 07/05/19 06:15 Absolute Eosinophils 0.13 k/cumm (0.0-0.7) 07/05/19 06:15 Absolute Basophils 0.05 k/cumm (0.0-0.2) 07/05/19 06:15 Differential Comment Rbc morph reviewed 07/05/19 06:15 RBC Morphology See below 07/05/19 06:15 Polychromasia Present 07/05/19 06:15 Hypochromasia 2+ 07/05/19 06:15 Anisocytosis 1+ 07/05/19 06:15 PT 10.6 sec (9.3-11.0) 07/04/19 06:20 INR 1.1 (0.9-1.1) 07/04/19 06:20 APTT Cancelled 07/04/19 10:20 Sodium 133 mmol/L (136-145) L 07/05/19 06:15 Potassium 4.8 mmol/L (3.5-5.1) 07/05/19 06:15 Chloride 102 mmol/L (98-107) 07/05/19 06:15 Carbon Dioxide 21.3 mmol/L (21.0-32.0) 07/05/19 06:15 Anion Gap 9.7 mmol/L (3-11) 07/05/19 06:15 BUN 29 mg/dL (7-18) H 07/05/19 06:15 Creatinine 1.71 mg/dL (0.55-1.02) H 07/05/19 06:15 Estimated GFR/1.73 m2 37.68 (mL/min/1.73m2) 07/05/19 06:15 Glucose 344 mg/dL (74-106) H 07/05/19 06:15 Hemoglobin A1c 12.2 % (3.8-5.6) H 07/02/19 08:00 Calcium 8.0 mg/dL (8.5-10.1) L 07/05/19 06:15 Magnesium 2.1 mg/dL (1.8-2.4) 07/04/19 06:20 Iron 20 ug/dL (50-170) L 07/03/19 04:30 TIBC 122 ug/dL (250-450) L 07/03/19 04:30 Transferrin % Sat 16 % (15-50) 07/03/19 04:30 Ferritin 1212 ng/mL (8-252) H 07/03/19 04:30 Total Bilirubin 0.1 mg/dL (0.2-1.0) L 07/02/19 08:50 AST 13 U/L (15-37) L 07/02/19 08:50 ALT 7 U/L (14-59) L 07/02/19 08:50 Alkaline Phosphatase 152 U/L (46-116) H 07/02/19 08:50 Troponin I < 0.05 ng/Ml (<0.06) 07/03/19 14:40 NT-Pro-B Natriuret Pep 598 pg/mL (<300) H 07/02/19 08:50 Total Protein 8.3 g/dL (6.4-8.2) H 07/02/19 08:50 Albumin 1.9 g/dL (3.4-5.0) L 07/02/19 08:50 Triglycerides 99 mg/dL (<150) 07/04/19 06:20 Total Cholesterol 92 mg/dL (<200) 07/04/19 06:20 LDL Cholesterol, Calc 46 mg/dL (<100) 07/04/19 06:20 HDL Cholesterol 27 mg/dL (40-60) L 07/04/19 06:20 Vitamin B12 1352 pg/mL (193-986) H 07/03/19 04:30 Folate 5.6 ng/mL (8.6-20.0) L 07/03/19 04:30 TSH 3.31 uIU/mL (0.36-3.74) 07/05/19 06:15 Urine Color Yellow (Yellow) 07/05/19 09:20 Urine Clarity Clear (Clear) 07/05/19 09:20 Urine pH 6.5 (5-8) 07/05/19 09:20 Ur Specific [place] 1.010 (1.005-1.025) 07/05/19 09:20 Urine Protein Negative mg/dL (Negative) 07/05/19 09:20 Urine Ketones Negative mg/dL (Negative) 07/05/19 09:20 Urine Blood Moderate (Negative) H 07/05/19 09:20 Urine Nitrite Negative (Negative) 07/05/19 09:20 Urine Bilirubin Negative (Negative) 07/05/19 09:20 Urine Urobilinogen 0.2 EU/dL (Up TO 0.2) 07/05/19 09:20 Ur Leukocyte Esterase Moderate (Negative) H 07/05/19 09:20 Urine RBC 3-5 HPF (0-2) H 07/05/19 09:20 Urine WBC 20-50 HPF (0-5) H 07/05/19 09:20 Ur Epithelial Cells Negative HPF (Negative) 07/05/19 09:20 Urine Crystals Negative HPF (Negative) 07/05/19 09:20 Urine Bacteria Negative HPF (Negative) 07/05/19 09:20 Urine Casts Negative LPF (Negative) 07/05/19 09:20 Urine Mucus Trace (Negative) 07/05/19 09:20 Urine Other Rare yeast (Negative) 07/05/19 09:20 Ur Culture Indicated? Yes 07/05/19 09:20 Ur Random Creatinine 11.03 mg/dL 07/03/19 08:30 U Random Total Protein 26.2 mg/dL (0.0-11.9) H 07/05/19 07:54 U [place] Prot/Creat Ratio 2.14 07/03/19 08:30 Urine Total Volume 4600 ml 07/05/19 07:54 Ur Total Protein 24 Hr 1205.2 mg/24hr (0.0-149.1) H 07/05/19 07:54 Urine Glucose 250 mg/dL (Negative) H 07/05/19 09:20 Stool Campylobacter PCR Cancelled 07/04/19 08:09 Stool Salmonella PCR Cancelled 07/04/19 08:09 Stool Shigella PCR Cancelled 07/04/19 08:09 Urine Opiates Screen Negative (Negative) 07/05/19 07:54 Urine Methadone Screen Negative (Negative) 07/05/19 07:54 Ur Barbiturates Screen Negative (Negative) 07/05/19 07:54 Ur Tricyclics Screen Negative (Negative) 07/05/19 07:54 Ur Amphetamines Screen Negative (Negative) 07/05/19 07:54 U Benzodiazepines Scrn Negative (Negative) 07/05/19 07:54 Urine Cocaine Screen Negative (Negative) 07/05/19 07:54 Ur THC Screen Negative (Negative) 07/05/19 07:54 Shiga Toxin (PCR) Cancelled 07/04/19 08:09 Patient ABO/Rh O Negative 02/28/20 10:27 Antibody Screen Negative 07/02/19 10:27 Crossmatch See Detail 07/02/19 10:27
--- NOTE | 2019-07-05 14:38 | W.NUTCONSULT ---
Date of service: 07/05/19 Time of Service: 14:38 Nutritional Consult ASSESSMENT: 19 year old female admitted with Urinary retention, neurogenic bladder, bilateral DVTs, hypoalbuminemia and poorly controlled IDDM (BS:37mg/d and A1C: 12% at admit). Also with depression, acute kidney injury, acute chronic anemia. Just moved here from [place] to live with her father. Following Diabetic Diet with excellent intake. Blood sugars being controlled in acceptable parameters. BMI wnl. DM consult pending. Visited today, but busy with PT. Will follow up when available. NUTRITIONAL DIAGNOSIS: Altered Nutrition related laboratory values as evidenced by elevated A1C Food and Nutrition related Knowledge Deficit as evidenced by poor self diabetes care, does not check blood sugars, uncontrolled diabetes leading to mulitple complications. Not ready for Diet/Lifestyle Change- denial of food and nturition related changes, inability to understand required changes INTERVENTION: Dm consult education Preferred meals provided for optimal intake Plan: Dm consult for additional diabetes training Maintain blood sugar control in optimal range meet 100% nutrient and fluid needs will continue to follow and monitor po intake, labs and weight. Time Spent in Nutritional Counseling and Treatment: 0 time spent face to face
--- NOTE | 2019-07-05 14:40 | CHAPLAIN ---
Jes and her dad were doing a puzzle together. I introduced myself and offered support. They were both polite, but not interested in further conversation. I offered support and let them know how to reach me.
[2019-07-05 14:56] LABS: ANA Interpretation Negative (Negative)
--- NOTE | 2019-07-05 18:40 | NUR.NOTE ---
Nursing Note: Steps for intermittent catheterization were discussed with the patient. Steps were outlined 1. Wash hands 2. Don glove 3. Set up a towel or jeffrey to collect dribbles. 4. Use provodone iodine to thoroughly clean oneself. 5. Apply lubricant to the work area. 6. Carefully open the catheter, and and lubricate the tip, being careful not to contaminate the tip 7. Bare down as if to void , then relax once entry is made and advance catheter to the point urine flows. 8. Measure and record out put. 9. Remove and dispose of catheter, work area, and clean yourself up. 10. Remove gloves and wash hands. Patient was able to repeat most of this back to me. Staff Reported that shortly after teaching patient was incontinent of bowel. Staff said patient refused assistance with care afterwards
[2019-07-06] VITALS (9 sets, daily range): BP systolic 92–124; BP diastolic 61–88; PULSE 98–118; RESP 17–20; TEMP 36.7–38.5; O2SAT 97–99
--- NOTE | 2019-07-06 07:42 | PGE_ITS ---
Date of Service Date of service: 07/06/19 Time of Service: 07:43 Assessment and Plan Assessment and plan (1) Urinary retention with incomplete bladder emptying: Status: Acute Assessment and plan: We will begin timed voiding and intermittent catheterization to keep her bladder volumes less than 500 cc. Although there may be a chance that she can empty her bladder somewhat, I would expect that she will need long-term intermittent catheterizations. I have asked my office nurse (who can help arrange for delivery of catheters to the patient's home) to stop down and provide the patient with a number of different catheter choices to see what might work best for her. We can then contact the supply company who will ship the catheters directly to her house. Subjective Subjective Interval history since last seen: Her catheter has been removed this morning. She has received quite a bit of verbal teaching regarding intermittent catheterization, but she has not had to physically perform CIC just yet. Exam Narrative Exam Narrative: She does not appear septic or toxic Her labs from this morning are reviewed Objective Objective Clinical Data: Abnormal lab results 07/05/19 07/05/19 Range/Units 07:54 09:20 Urine Blood Moderate H (Negative) Ur Leukocyte Esterase Moderate H (Negative) Urine RBC 3-5 H (0-2) HPF Urine WBC 20-50 H (0-5) HPF U Random Total Protein 26.2 H (0.0-11.9) mg/dL Ur Total Protein 24 Hr 1205.2 H (0.0-149.1) mg/24hr Urine Glucose 250 H (Negative) mg/dL Vital Signs Temperature 37.9 C H 07/06/19 03:55 Temperature Source Tympanic 07/06/19 03:55 Pulse 98 H 07/06/19 03:55 Pulse Rhythm Regular 07/06/19 07:36 Pulse 84 07/02/19 11:10 Respiratory Rate 18 07/06/19 03:55 Respiratory Effort 07/06/19 07:36 Respiratory Depth Normal 07/06/19 07:36 Respiratory Pattern Normal 07/06/19 07:36 Blood Pressure 109/77 07/06/19 03:55 Blood Pressure Mean 83 07/02/19 11:01 Blood Pressure Position Supine 07/02/19 08:20 Pulse Oximetry 96 07/05/19 23:35 Oxygen Delivery Method Room Air 07/06/19 03:55 Oxygen Flow Rate 0 07/06/19 03:55 Pain Level 0 07/06/19 03:55 Comment 07/03/19 20:49 Intake & Output 07/05/19 07/05/19 07/06/19 11:59 23:59 11:59 Intake Total 2076.667 / 2416.667 340 / 2416.667 420 / 420 Output Total 2850 / 4250 1400 / 4250 1700 / 1700 Balance -773.333 / -1833.333 -1060 / -1833.333 -1280 / -1280 Intake: IV 1356.667 / 1456.667 100 / 1456.667 Oral 720 / 960 240 / 960 420 / 420 Output: Urine 2850 / 4250 1400 / 4250 1700 / 1700 Other: Urine Color Pale Pale Pale Yellow Yellow Urine Appearance Clear Clear Clear Comment urine was concentrated Stool Size Large Stool Characteristics Soft Laboratory Results WBC 11.90 k/cumm (4.4-10.8) H 07/05/19 06:15 RBC 2.70 m/cumm (4.00-5.20) L 07/05/19 06:15 Hgb 7.4 g/dL (12.0-15.5) L 07/05/19 06:15 Hct 23.4 % (36.0-46.0) L 07/05/19 06:15 MCV 86.7 fL (80-95) 07/05/19 06:15 MCH 27.4 pg (27.0-33.0) 07/05/19 06:15 MCHC 31.6 g/dL (32.0-36.0) L 07/05/19 06:15 RDW 12.6 % (11.7-14.6) 07/05/19 06:15 Plt Count 534 x1000/uL (130-400) H 07/05/19 06:15 MPV 9.0 fL (8.0-11.0) 07/05/19 06:15 Immature Gran % 0.8 % 07/05/19 06:15 Neutrophils % 71.1 07/05/19 06:15 Lymphocytes % 17.2 07/05/19 06:15 Monocytes % 9.4 07/05/19 06:15 Eosinophils % 1.1 07/05/19 06:15 Basophils % 0.4 07/05/19 06:15 Absolute Neutrophils 8.46 k/cumm (1.2-6.7) H 07/05/19 06:15 Absolute Lymphocytes 2.05 k/cumm (1.2-3.4) 07/05/19 06:15 Absolute Monocytes 1.12 k/cumm (0.11-0.7) H 07/05/19 06:15 Absolute Eosinophils 0.13 k/cumm (0.0-0.7) 07/05/19 06:15 Absolute Basophils 0.05 k/cumm (0.0-0.2) 07/05/19 06:15 Differential Comment Rbc morph reviewed 07/05/19 06:15 RBC Morphology See below 07/05/19 06:15 Polychromasia Present 07/05/19 06:15 Hypochromasia 2+ 07/05/19 06:15 Anisocytosis 1+ 07/05/19 06:15 PT 10.6 sec (9.3-11.0) 07/04/19 06:20 INR 1.1 (0.9-1.1) 07/04/19 06:20 APTT Cancelled 07/04/19 10:20 Sodium 133 mmol/L (136-145) L 07/05/19 06:15 Potassium 4.8 mmol/L (3.5-5.1) 07/05/19 06:15 Chloride 102 mmol/L (98-107) 07/05/19 06:15 Carbon Dioxide 21.3 mmol/L (21.0-32.0) 07/05/19 06:15 Anion Gap 9.7 mmol/L (3-11) 07/05/19 06:15 BUN 29 mg/dL (7-18) H 07/05/19 06:15 Creatinine 1.71 mg/dL (0.55-1.02) H 07/05/19 06:15 Estimated GFR/1.73 m2 37.68 (mL/min/1.73m2) 07/05/19 06:15 Glucose 344 mg/dL (74-106) H 07/05/19 06:15 Hemoglobin A1c 12.2 % (3.8-5.6) H 07/02/19 08:00 Calcium 8.0 mg/dL (8.5-10.1) L 07/05/19 06:15 Magnesium 2.1 mg/dL (1.8-2.4) 07/04/19 06:20 Iron 20 ug/dL (50-170) L 07/03/19 04:30 TIBC 122 ug/dL (250-450) L 07/03/19 04:30 Transferrin % Sat 16 % (15-50) 07/03/19 04:30 Ferritin 1212 ng/mL (8-252) H 07/03/19 04:30 Total Bilirubin 0.1 mg/dL (0.2-1.0) L 07/02/19 08:50 AST 13 U/L (15-37) L 07/02/19 08:50 ALT 7 U/L (14-59) L 07/02/19 08:50 Alkaline Phosphatase 152 U/L (46-116) H 07/02/19 08:50 Troponin I < 0.05 ng/Ml (<0.06) 07/03/19 14:40 NT-Pro-B Natriuret Pep 598 pg/mL (<300) H 07/02/19 08:50 Total Protein 8.3 g/dL (6.4-8.2) H 07/02/19 08:50 Albumin 1.9 g/dL (3.4-5.0) L 07/02/19 08:50 Triglycerides 99 mg/dL (<150) 07/04/19 06:20 Total Cholesterol 92 mg/dL (<200) 07/04/19 06:20 LDL Cholesterol, Calc 46 mg/dL (<100) 07/04/19 06:20 HDL Cholesterol 27 mg/dL (40-60) L 07/04/19 06:20 Vitamin B12 1352 pg/mL (193-986) H 07/03/19 04:30 Folate 5.6 ng/mL (8.6-20.0) L 07/03/19 04:30 TSH 3.31 uIU/mL (0.36-3.74) 07/05/19 06:15 Urine Color Yellow (Yellow) 07/05/19 09:20 Urine Clarity Clear (Clear) 07/05/19 09:20 Urine pH 6.5 (5-8) 07/05/19 09:20 Ur Specific [place] 1.010 (1.005-1.025) 07/05/19 09:20 Urine Protein Negative mg/dL (Negative) 07/05/19 09:20 Urine Ketones Negative mg/dL (Negative) 07/05/19 09:20 Urine Blood Moderate (Negative) H 07/05/19 09:20 Urine Nitrite Negative (Negative) 07/05/19 09:20 Urine Bilirubin Negative (Negative) 07/05/19 09:20 Urine Urobilinogen 0.2 EU/dL (Up TO 0.2) 07/05/19 09:20 Ur Leukocyte Esterase Moderate (Negative) H 07/05/19 09:20 Urine RBC 3-5 HPF (0-2) H 07/05/19 09:20 Urine WBC 20-50 HPF (0-5) H 07/05/19 09:20 Ur Epithelial Cells Negative HPF (Negative) 07/05/19 09:20 Urine Crystals Negative HPF (Negative) 07/05/19 09:20 Urine Bacteria Negative HPF (Negative) 07/05/19 09:20 Urine Casts Negative LPF (Negative) 07/05/19 09:20 Urine Mucus Trace (Negative) 07/05/19 09:20 Urine Other Rare yeast (Negative) 07/05/19 09:20 Ur Culture Indicated? Yes 07/05/19 09:20 Ur Random Creatinine 11.03 mg/dL 07/03/19 08:30 U Random Total Protein 26.2 mg/dL (0.0-11.9) H 07/05/19 07:54 U [place] Prot/Creat Ratio 2.14 07/03/19 08:30 Urine Total Volume 4600 ml 07/05/19 07:54 Ur Total Protein 24 Hr 1205.2 mg/24hr (0.0-149.1) H 07/05/19 07:54 Urine Glucose 250 mg/dL (Negative) H 07/05/19 09:20 Stool Campylobacter PCR Cancelled 07/04/19 08:09 Stool Salmonella PCR Cancelled 07/04/19 08:09 Stool Shigella PCR Cancelled 07/04/19 08:09 Urine Opiates Screen Negative (Negative) 07/05/19 07:54 Urine Methadone Screen Negative (Negative) 07/05/19 07:54 Ur Barbiturates Screen Negative (Negative) 07/05/19 07:54 Ur Tricyclics Screen Negative (Negative) 07/05/19 07:54 Ur Amphetamines Screen Negative (Negative) 07/05/19 07:54 U Benzodiazepines Scrn Negative (Negative) 07/05/19 07:54 Urine Cocaine Screen Negative (Negative) 07/05/19 07:54 Ur THC Screen Negative (Negative) 07/05/19 07:54 Shiga Toxin (PCR) Cancelled 07/04/19 08:09 Patient ABO/Rh O Negative 07/02/19 10:27 Antibody Screen Negative 07/02/19 10:27 Crossmatch See Detail 07/02/19 10:27
[2019-07-06 07:43] LABS: Abs Immature Grans 0.12 k/cumm (0.0-0.09); Absolute Basophil Count 0.07 k/cumm (0.0-0.2); Absolute Eosinophil Count 0.18 k/cumm (0.0-0.7); Absolute Lymphocyte Count 2.55 k/cumm (1.2-3.4); Absolute Monocyte Count 1.46 k/cumm (0.11-0.7); Eosinophils % 1.5; HCT 25.1 % (36.0-46.0); HGB 8.1 g/dL (12.0-15.5); Lymphocytes % 21.5; Mean Corp. HGB Concentration 32.3 g/dL (32.0-36.0); Mean Corpuscular Hemoglobin 27.9 pg (27.0-33.0); Mean Corpuscular Volume 86.6 fL (80-95); Monocytes % 12.3; Neutrophils % 63.1; RBC Distribution Width 12.7 % (11.7-14.6); White Blood Cell Count 11.84 k/cumm (4.4-10.8)
[2019-07-06 07:46] LABS: Anion Gap 10.8 mmol/L (3-11); BUN 34 mg/dL (7-18); CO2 20.2 mmol/L (21.0-32.0); CREATININE 1.89 mg/dL (0.55-1.02); Calcium 8.8 mg/dL (8.5-10.1); Chloride 103 mmol/L (98-107); Estimated GFR 33.57 (mL/min/1.73m2); Glucose 151 mg/dL (74-106); Magnesium 1.7 mg/dL (1.8-2.4); Potassium 4.7 mmol/L (3.5-5.1); Sodium 134 mmol/L (136-145)
[2019-07-06 07:47] LABS: Absolute Neutrophil Count 7.47 k/cumm (1.2-6.7)
[2019-07-06] MEDS: Ferrous Sulfate 325 MG TAB PO (08:21)
[2019-07-06] MEDS: Gabapentin 100 MG CAP 300 MG PO ×3 (08:21→21:13)
[2019-07-06] MEDS: Omeprazole 10 MG CAPCR PO (08:21)
[2019-07-06] MEDS: Insulin Aspart 300 UNITS/3 ML PEN SC ×7 (08:22→21:14)
[2019-07-06] MEDS: Insulin Glargine 300 UNITS/3 ML PEN 40 UNITS SC (08:37)
[2019-07-06 08:45] LABS: Platelet Count 627 x1000/uL (130-400)
[2019-07-06 08:46] LABS: Basophils % 0.6
[2019-07-06] MEDS: cefTAZidime 1,000 MG in Normal Saline 100 ML 200 MG IVPB ×3 (08:46→23:55)
--- NOTE | 2019-07-06 08:55 | CMPROGNOTE_ITS ---
- If Service Date Differs Date of service: 07/06/19 Time of Service: 08:55 Care Management Progress Note S/O:Jes is alert and engaged with CM she makes good eye contact. She was seen by which resulted in recommendations of intermittent caths. CHONG Lan from 's brought down catheter supplies for the patient and will assist in management of supplies. will plan to meet with the patient on Friday. She will need follow up appointments scheduled with [facility] and referrals to endocrinology and nephrology. Medicaid is now active per community connections. A: Jes is a 19 year old female admitted to [facility] on 07/02/19 with UTI, weakness and hypoglycemia. P: Anticipate Jes will return home when medically cleared. She will receive diabetic and nutritional education while at [facility], and will need close follow up by her new PCP, Endocrinology at [facility] [facility] and nephrology. [facility] referral through [place] Medicaid, and behavioral health referral at [facility].Her father will drive her home via private vehicle when ready. CM will continue to follow and support discharge planning considerations.
[2019-07-06] MEDS: MAGNESIUM SULFATE 2 GM/50 ML BAG IVPB (10:52)
[2019-07-06] MEDS: Enoxaparin 60 MG/0.6 ML SYR SC ×2 (10:53→21:13)
--- NOTE | 2019-07-06 11:27 | PTTR_ITS ---
Date of service: 07/06/19 Time of Service: 11:27 PT Notes Visit Reasons: UTI, WEAKNESS, HYPOGLYCEMIA 07/06/2019 SUBJECTIVE: Jes stating she struggled to sleep last night. She complains of some tingling in bilateral feet with difficulty managing the left foot and leg today. OBJECTIVE: Seated in her chair. Agreeable to PT treatment. TRANSFERS Sit to stand: S Stand to sit: S GAIT Device: FWW Weight bearing: Full Assist: SBA Distance: 200'+ 100' Deviation: Step through pattern THEREX: Seated and standing LE strengthing exercises. Add in light static and dynamic balance activities with CGA to min A at times. See flow sheet. ASSESSMENT: Pt progressing with PT efforts. She continues to demonstrate weakness in bilateral LE's and pt is unable to step up to 4 step today. I do try to take away her walker at times during our session and have pt walk very short distances without it with CGA. She is also able to actively plantar and dorsiflex bilateral ankles today x 5 reps. Pt will benefit from continued PT efforts for improvements in LE strength, balance and activity tolerance. PLAN: Continue current POC as above. Treatment time: 30 minutes [id number], [id number] Leanne Gregg, [employer]
[2019-07-06 12:25] LABS: Glucose 472 mg/dL (74-106)
--- NOTE | 2019-07-06 13:04 | W.INDIABCONS ---
Date of service: 07/06/19 Time of Service: 13:04 Diabetes Inpatient Consult DESCRIPTION/ASSESSMENT: Appreciate diabetes consult for Jes Martinez who is hospitalized with hypoglycemia, UTI, DVT and type 1 diabetes. She has had diabetes since age of ~10. States she has lost 40-50 pounds since diagnosis ~9 years ago. BMI 20 A1c 12.2 Blood sugars here 227-351 yesterday; 153-472 breakfast and lunch now taking 40u Lantus and Novolog 1 unit for 10 grams carbohydrate and resistant insulin correction. Visited with Jes and her father today. She states she had not been testing her blood sugar prior to moving from [place] to [place] She was taking 50u Lantus and Lispro twice a day (randomly) 20-40units. States her A1c has been higher than 12 in the past. 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 She does not count carbohydrate grams or servings but guesses how much insulin to take based on how much she is eating. States she drinks sweetened beverages all day including jas tea and juices. Her dad states her glucometer does not correlate well with blood sugars monitored here. INTERVENTION: Discussed the approach she would like to take to improve management. She is looking for a CGM and needs a new glucometer in the meantime. Discussed using a scale to dose her insulin based on carbohydrate and blood sugar correction and she agrees to consider this. She agrees to try truvia and not drink sweetened beverages between meals. Given insulin dosing has just been changed, will follow blood sugars for another 24 hours to see how this dosing regimen is working. PLAN: Will follow PO intake and blood sugars Will meet with her tomorrow. Dr. Lorenzo informed re: interest in CGM Dexcom G6 and One Touch Ultra mini glucometer, strips and lancets. Time Spent in Nutritional Counseling and Treatment: 20 minutes face to face
--- NOTE | 2019-07-06 16:05 | PT.INTREAT ---
Date of service: 07/06/19 Time of Service: 16:05 PT Notes Visit Reasons: UTI, WEAKNESS, HYPOGLYCEMIA 07/06/2019 SUBJECTIVE: Jes noting some back discomfort this afternoon. She just received medication for this. She notes LE fatigue from this morning's PT session. OBJECTIVE: Pt seated in her recliner. Agreeable to PT treatment. TRANSFERS Sit to stand: S Stand to sit: S GAIT Device: FWW Weight bearing: Full Assist: SBA Distance: 260' Deviation: Encourage heel to toe gait mechanics. THEREX: Pt performs dynamic balance activities with UE support to the bar in the hallway and well as light LE strengthening. See flow sheet. ASSESSMENT: Pt working on proper heel to toe gait mechanics today during gait which is challenging due to weak plantar and dorsiflexors. This also causes her to fatigue quickly. With encouragement pt puts in good effort with PT. PLAN: Continue current POC. Treatment time: 12' [id number] Leanne Gregg PTA
--- NOTE | 2019-07-06 16:34 | NUR.NOTE ---
Nursing Note: 07/06/19 patient approached at 1240 to bladder scan, pt declined, asked if she could wait until after lunch. Approached her at 1300, she asked if she could try going to the bathroom first. She attempted to void, unable. Discussed the straight cath process. Hien verbalized understanding but requested that she be able to cath herself. Patient also requested that this nurse also not visualize her alissa area due to her comfort level. Asked patient if another nurse would be preferable, she atated no, it was her comfort level with privacy. Patient was able to catheterize herself with verbal cues successfully, while her privacy and a clean environment were maintained.
[2019-07-06 16:53] LABS: Glucose 369 mg/dL (74-106)
[2019-07-06] MEDS: Insulin Aspart 300 UNITS/3 ML PEN 10 UNITS SC (17:13)
--- NOTE | 2019-07-06 17:23 | PGE_ITS ---
Date of Service Date of service: 07/06/19 Time of Service: 17:23 Assessment and Plan Assessment and plan (1) Acute deep vein thrombosis (DVT) of left lower extremity: Status: Acute Assessment and plan: Continue lovenox with plans to transition to eliquis. (2) Acute deep vein thrombosis (DVT) of right femoral vein: Status: Acute Assessment and plan: As above (3) Diabetes mellitus, insulin dependent (IDDM), uncontrolled: Status: Acute Assessment and plan: A1C checked on this admission unlikely to be accurate as the patient is anemic. Finding a good regimen for Jes is a challenge because her carb intake is inconsistent. She was seen by diabetes education today and expressed that she wanted a stable insulin dose. To me, she said she is interested in learning how to carb count. I agree with [facility] [place] that depression plays a large role in management of diabetes. Will speak with diabetes education re teaching how to carb count. For now, increasing her long acting insulin and adjusting her carb counting ratio to 1 unit: 5 grams of carbs. Will benefit from a continuous glucose monitor. Endocrine referral sent. (4) Urinary retention with incomplete bladder emptying: Status: Acute Assessment and plan: Seen by urology - recommended to self-cath on a schedule - we estimate this to be Q4Hrs. (5) Neurogenic bladder: Status: Acute Assessment and plan: Due to autonomic neuropathy. As above (6) Diabetic neuropathy: Status: Acute Assessment and plan: presumably responsible for LE weakness as well as bowel/bladder dysfunction. Neurology consult pending (7) UTI (urinary tract infection): Status: Acute Assessment and plan: Urine cultures have been sterile. Continue empiric fortaz based on cultures from [place] admission. (8) Positive blood culture: Status: Acute Assessment and plan: 1 bottle positive for yeast on original collection. This call was just made. Repeat blood cultures have been negative to date. We are repeating them again, given on going fevers, but at this time, it is unlikely that the patient has fungemia. (9) Acute on chronic anemia: Status: Acute Assessment and plan: s/p 1 unit pRBCs. No active bleeding. Likely anemia of chronic disease. I am not sure that PO iron will have much utility here - consider d/c'ing. (10) Acute renal failure superimposed on chronic kidney disease: Status: Acute Assessment and plan: Likely due to the fact that the patient was retaining urine during her voiding trial. Reinforce the need to self-cath. Nephrology referral sent. (11) Fever: Status: Acute Assessment and plan: Likely due to B DVTs at this point as septic workup has been negative. (12) Discharge planning issues: Status: Acute Assessment and plan: Full code. Anticipate discharge home in 48 hours. Subjective Subjective Interval history since last seen: Feels tired after working with PT. Complains of chronic mid-back pain. Denies dizziness, chest pain, including on inspiration, shortness of breath, nausea. Somewhat resistant to doing straigh catheterization today, but was able to do it herself - 1600 cc came out. She was unaware of it. She states she is interested in learning how to carb count. Exam Narrative Exam Narrative: General: Chronically ill-appearing female, pale, sitting up in a chair, looks at her father for majority of answers HEENT: EOMI, MMM Heart: RRR, tachycardic Lungs: CTAB Abdomen: soft, nontender, nondistended Extremities: 2+ pitting edema B Objective Objective Clinical Data: Abnormal lab results 07/06/19 07/06/19 07/06/19 Range/Units 07:27 07:27 11:45 WBC 11.84 H (4.4-10.8) k/cumm RBC 2.90 L (4.00-5.20) m/cumm Hgb 8.1 L (12.0-15.5) g/dL Hct 25.1 L (36.0-46.0) % Plt Count 627 H (130-400) x1000/uL Absolute Neutrophils 7.47 H (1.2-6.7) k/cumm Absolute Monocytes 1.46 H (0.11-0.7) k/cumm Sodium 134 L (136-145) mmol/L Carbon Dioxide 20.2 L (21.0-32.0) mmol/L BUN 34 H (7-18) mg/dL Creatinine 1.89 H (0.55-1.02) mg/dL Glucose 151 H D 472 H D (74-106) mg/dL Magnesium 1.7 L (1.8-2.4) mg/dL 07/06/19 Range/Units 16:13 WBC (4.4-10.8) k/cumm RBC (4.00-5.20) m/cumm Hgb (12.0-15.5) g/dL Hct (36.0-46.0) % Plt Count (130-400) x1000/uL Absolute Neutrophils (1.2-6.7) k/cumm Absolute Monocytes (0.11-0.7) k/cumm Sodium (136-145) mmol/L Carbon Dioxide (21.0-32.0) mmol/L BUN (7-18) mg/dL Creatinine (0.55-1.02) mg/dL Glucose 369 H D (74-106) mg/dL Magnesium (1.8-2.4) mg/dL Vital Signs Temperature 36.7 C 07/06/19 11:26 Temperature Source Tympanic 07/06/19 11:26 Pulse 107 H 07/06/19 12:52 Pulse Rhythm Regular 07/06/19 09:30 Pulse 84 07/02/19 11:10 Respiratory Rate 17 07/06/19 11:26 Respiratory Effort Non-Labored 07/06/19 09:30 Respiratory Depth Normal 07/06/19 09:30 Respiratory Pattern Normal 07/06/19 09:30 Blood Pressure 123/79 07/06/19 11:26 Blood Pressure Mean 83 07/02/19 11:01 Blood Pressure Position Supine 07/02/19 08:20 Pulse Oximetry 98 07/06/19 11:26 Oxygen Delivery Method Room Air 07/06/19 07:48 Oxygen Flow Rate 0 07/06/19 07:48 Pain Level 0 07/06/19 11:26 Comment 07/06/19 07:48 Intake & Output 07/05/19 07/06/19 07/06/19 23:59 11:59 23:59 Intake Total 340 / 2416.667 1230 / 1480 250 / 1480 Output Total 1400 / 4250 1700 / 4100 2400 / 4100 Balance -1060 / -1833.333 -470 / -2620 -2150 / -2620 Intake: IV 100 / 1456.667 210 / 210 Oral 240 / 960 1020 / 1270 250 / 1270 Output: Urine 1400 / 4250 1700 / 4100 2400 / 4100 Other: Urine Color Pale Pale Yellow Yellow Urine Appearance Clear Clear Clear Urine Odor None Comment pt scanned for greater than 999. Pt able to complete straight cath process with only verbal inputy. Pt requested this RN not visualize the process at the urethra but walk her through it verbally. Voiding Methods Urinal Laboratory Results WBC 11.84 k/cumm (4.4-10.8) H 07/06/19 07:27 RBC 2.90 m/cumm (4.00-5.20) L 07/06/19 07:27 Hgb 8.1 g/dL (12.0-15.5) L 07/06/19 07:27 Hct 25.1 % (36.0-46.0) L 07/06/19 07:27 MCV 86.6 fL (80-95) 07/06/19 07:27 MCH 27.9 pg (27.0-33.0) 07/06/19 07:27 MCHC 32.3 g/dL (32.0-36.0) 07/06/19 07:27 RDW 12.7 % (11.7-14.6) 07/06/19 07:27 Plt Count 627 x1000/uL (130-400) H 07/06/19 07:27 MPV 9.0 fL (8.0-11.0) 07/06/19 07:27 Immature Gran % 1.0 % 07/06/19 07:27 Neutrophils % 63.1 07/06/19 07:27 Lymphocytes % 21.5 07/06/19 07:27 Monocytes % 12.3 07/06/19 07:27 Eosinophils % 1.5 07/06/19 07:27 Basophils % 0.6 07/06/19 07:27 Absolute Neutrophils 7.47 k/cumm (1.2-6.7) H 07/06/19 07:27 Absolute Lymphocytes 2.55 k/cumm (1.2-3.4) 07/06/19 07:27 Absolute Monocytes 1.46 k/cumm (0.11-0.7) H 07/06/19 07:27 Absolute Eosinophils 0.18 k/cumm (0.0-0.7) 07/06/19 07:27 Absolute Basophils 0.07 k/cumm (0.0-0.2) 07/06/19 07:27 Differential Comment Rbc morph reviewed 07/05/19 06:15 RBC Morphology See below 07/05/19 06:15 Polychromasia Present 07/05/19 06:15 Hypochromasia 2+ 07/05/19 06:15 Anisocytosis 1+ 07/05/19 06:15 PT 10.6 sec (9.3-11.0) 07/04/19 06:20 INR 1.1 (0.9-1.1) 07/04/19 06:20 APTT Cancelled 07/04/19 10:20 Sodium 134 mmol/L (136-145) L 07/06/19 07:27 Potassium 4.7 mmol/L (3.5-5.1) 07/06/19 07:27 Chloride 103 mmol/L (98-107) 07/06/19 07:27 Carbon Dioxide 20.2 mmol/L (21.0-32.0) L 07/06/19 07:27 Anion Gap 10.8 mmol/L (3-11) 07/06/19 07:27 BUN 34 mg/dL (7-18) H 07/06/19 07:27 Creatinine 1.89 mg/dL (0.55-1.02) H 07/06/19 07:27 Estimated GFR/1.73 m2 33.57 (mL/min/1.73m2) 07/06/19 07:27 Glucose 369 mg/dL (74-106) H D 07/06/19 16:13 Hemoglobin A1c 12.2 % (3.8-5.6) H 07/02/19 08:00 Calcium 8.8 mg/dL (8.5-10.1) 07/06/19 07:27 Magnesium 1.7 mg/dL (1.8-2.4) L 07/06/19 07:27 Iron 20 ug/dL (50-170) L 07/03/19 04:30 TIBC 122 ug/dL (250-450) L 07/03/19 04:30 Transferrin % Sat 16 % (15-50) 07/03/19 04:30 Ferritin 1212 ng/mL (8-252) H 07/03/19 04:30 Total Bilirubin 0.1 mg/dL (0.2-1.0) L 07/02/19 08:50 AST 13 U/L (15-37) L 07/02/19 08:50 ALT 7 U/L (14-59) L 07/02/19 08:50 Alkaline Phosphatase 152 U/L (46-116) H 07/02/19 08:50 Troponin I < 0.05 ng/Ml (<0.06) 07/03/19 14:40 NT-Pro-B Natriuret Pep 598 pg/mL (<300) H 07/02/19 08:50 Total Protein 8.3 g/dL (6.4-8.2) H 07/02/19 08:50 Albumin 1.9 g/dL (3.4-5.0) L 07/02/19 08:50 Triglycerides 99 mg/dL (<150) 07/04/19 06:20 Total Cholesterol 92 mg/dL (<200) 07/04/19 06:20 LDL Cholesterol, Calc 46 mg/dL (<100) 07/04/19 06:20 HDL Cholesterol 27 mg/dL (40-60) L 07/04/19 06:20 Vitamin B12 1352 pg/mL (193-986) H 07/03/19 04:30 Folate 5.6 ng/mL (8.6-20.0) L 07/03/19 04:30 TSH 3.31 uIU/mL (0.36-3.74) 07/05/19 06:15 Urine Color Yellow (Yellow) 07/05/19 09:20 Urine Clarity Clear (Clear) 07/05/19 09:20 Urine pH 6.5 (5-8) 07/05/19 09:20 Ur Specific [place] 1.010 (1.005-1.025) 07/05/19 09:20 Urine Protein Negative mg/dL (Negative) 07/05/19 09:20 Urine Ketones Negative mg/dL (Negative) 07/05/19 09:20 Urine Blood Moderate (Negative) H 07/05/19 09:20 Urine Nitrite Negative (Negative) 07/05/19 09:20 Urine Bilirubin Negative (Negative) 07/05/19 09:20 Urine Urobilinogen 0.2 EU/dL (Up TO 0.2) 07/05/19 09:20 Ur Leukocyte Esterase Moderate (Negative) H 07/05/19 09:20 Urine RBC 3-5 HPF (0-2) H 07/05/19 09:20 Urine WBC 20-50 HPF (0-5) H 07/05/19 09:20 Ur Epithelial Cells Negative HPF (Negative) 07/05/19 09:20 Urine Crystals Negative HPF (Negative) 07/05/19 09:20 Urine Bacteria Negative HPF (Negative) 07/05/19 09:20 Urine Casts Negative LPF (Negative) 07/05/19 09:20 Urine Mucus Trace (Negative) 07/05/19 09:20 Urine Other Rare yeast (Negative) 07/05/19 09:20 Ur Culture Indicated? Yes 07/05/19 09:20 Ur Random Creatinine 11.03 mg/dL 07/03/19 08:30 U Random Total Protein 26.2 mg/dL (0.0-11.9) H 07/05/19 07:54 U Zap Prot/Creat Ratio 2.14 07/03/19 08:30 Urine Total Volume 4600 ml 07/05/19 07:54 Ur Total Protein 24 Hr 1205.2 mg/24hr (0.0-149.1) H 07/05/19 07:54 Urine Glucose 250 mg/dL (Negative) H 07/05/19 09:20 Stool Campylobacter PCR Cancelled 07/04/19 08:09 Stool Salmonella PCR Cancelled 07/04/19 08:09 Stool Shigella PCR Cancelled 07/04/19 08:09 Urine Opiates Screen Negative (Negative) 07/05/19 07:54 Urine Methadone Screen Negative (Negative) 07/05/19 07:54 Ur Barbiturates Screen Negative (Negative) 07/05/19 07:54 Ur Tricyclics Screen Negative (Negative) 07/05/19 07:54 Ur Amphetamines Screen Negative (Negative) 07/05/19 07:54 U Benzodiazepines Scrn Negative (Negative) 07/05/19 07:54 Urine Cocaine Screen Negative (Negative) 07/05/19 07:54 Ur THC Screen Negative (Negative) 07/05/19 07:54 KIERSTEN Titer Not Applicable 07/04/19 06:20 KIERSTEN Titer 2 Not Applicable 07/04/19 06:20 KIERSTEN Titer 3 Not Applicable 07/04/19 06:20 KIERSTEN Interpretation Negative (Negative) 07/04/19 06:20 Shiga Toxin (PCR) Cancelled 07/04/19 08:09 Patient ABO/Rh O Negative 07/02/19 10:27 Antibody Screen Negative 07/02/19 10:27 Crossmatch See Detail 07/02/19 10:27
[2019-07-06] MEDS: Acetaminophen 325 MG TAB PO (23:53)
[2019-07-06] MEDS: Normal Saline Flush 10 ML SYR IVP (23:55)
[2019-07-07 03:47] VITALS: BP 107/71; PULSE 94; RESP 17; TEMP 36.6; O2SAT 97
[2019-07-07 07:05] LABS: Abs Immature Grans 0.16 k/cumm (0.0-0.09); Absolute Eosinophil Count 0.13 k/cumm (0.0-0.7); Absolute Lymphocyte Count 2.28 k/cumm (1.2-3.4); Absolute Monocyte Count 1.54 k/cumm (0.11-0.7); Absolute Neutrophil Count 6.12 k/cumm (1.2-6.7); Eosinophils % 1.3; HCT 22.8 % (36.0-46.0); HGB 7.3 g/dL (12.0-15.5); Immature Grans % 1.5 %; Lymphocytes % 22.1; Mean Corpuscular Hemoglobin 27.8 pg (27.0-33.0); Mean Corpuscular Volume 86.7 fL (80-95); Monocytes % 14.9; Neutrophils % 59.2; Platelet Count 668 x1000/uL (130-400); RBC 2.63 m/cumm (4.00-5.20); RBC Distribution Width 12.8 % (11.7-14.6); White Blood Cell Count 10.33 k/cumm (4.4-10.8)
[2019-07-07 07:20] LABS: Anion Gap 11.1 mmol/L (3-11); BUN 40 mg/dL (7-18); CO2 19.9 mmol/L (21.0-32.0); CREATININE 2.22 mg/dL (0.55-1.02); Calcium 8.2 mg/dL (8.5-10.1); Chloride 101 mmol/L (98-107); Estimated GFR 27.88 (mL/min/1.73m2); Glucose 357 mg/dL (74-106); Sodium 132 mmol/L (136-145)
[2019-07-07] MEDS: Omeprazole 10 MG CAPCR PO (07:38)
[2019-07-07] MEDS: Insulin Aspart 300 UNITS/3 ML PEN SC ×4 (07:39→12:42)
[2019-07-07 07:40] LABS: Diff Comment Agrees w/ Instrument
[2019-07-07 07:42] LABS: Anisocytosis 1+; Polychromasia Present
[2019-07-07 08:48] VITALS: BP 106/73; PULSE 105; RESP 17; TEMP 37.1; O2SAT 95
[2019-07-07] MEDS: Normal Saline Flush 10 ML SYR IVP (08:57)
[2019-07-07] MEDS: Insulin Glargine 300 UNITS/3 ML PEN 50 UNITS SC (08:57)
[2019-07-07 08:58] LABS: Lactate 2.2 mmol/L (0.6-1.4)
[2019-07-07] MEDS: cefTAZidime 1,000 MG in Normal Saline 100 ML 100 MG IVPB (08:58)
[2019-07-07] MEDS: Gabapentin 100 MG CAP 300 MG PO ×2 (08:58→14:29)
[2019-07-07] MEDS: Ferrous Sulfate 325 MG TAB PO (08:58)
[2019-07-07 09:15] LABS: C-Reactive Protein 10.02 mg/dL (0.0-0.3)
[2019-07-07] MEDS: Enoxaparin 60 MG/0.6 ML SYR SC (11:08)
[2019-07-07 11:13] VITALS: BP 99/67; PULSE 100; RESP 17; TEMP 36.6; O2SAT 99
--- NOTE | 2019-07-07 11:55 | PT.INTREAT ---
PT Notes Visit Reasons: UTI, WEAKNESS, HYPOGLYCEMIA 07/07/2019 Treatment time: 25 minutes Treatment: 9753 [id number]?2 Patient states he is feeling well stronger compared to the weekend. No complaints of pain offered today Treatment: Today session consisted of strengthening exercises to the upper extremities with a 2 pound dumbbell for biceps and shoulder musculature, along with 4 pound weights for isotonic PRE to the quads, heel raises or least attempts, while standing with a wheeled walker, ankle pumping, mini squats, and chair push-ups. Refer to the flowsheet. She also ambulated with a wheeled walker with minimal contact guarding from her room to the PT department, a set and descended 2 steps with a railing, and then ambulated back. She tolerated this well. I encouraged her to elevate her legs in the recliner as much as possible along with hourly ankle pumps. She be seen later this afternoon for another treatment session. Disclaimer: This note was created using [employer] voice recognition software. It was reviewed for major content. However, there may be multiple small discrepancies and errors due to the voice recognition aspects of the software.
--- NOTE | 2019-07-07 14:29 | W.PSYCHCONSU ---
Date of service: 07/07/19 Time of Service: 08:30 History of Present Illness Narrative: New Impatient Psychiatric Consultation Information source: Patient, chart, medical team Primary Care Provider: none, Reason for consultation: Darshana Duncan MD requested psychiatric consultation for Jes Herndon to evaluate for depression contributing to presentation. History Of Present Illness: Per Dr. 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 Her blood sugars quickly went up to 400 with therapy... The patient was also found to be in PAM, had edema of BLEs and anemia. She was retaining urine and had a aguilera catheter placed. Given decreased rectal tone, cauda equina had to be ruled out - MRI done on admission was negative....On admission, there was a suspicion for a UTI, for which the patient was started on empiric antibiotics (cerftriaxone, followed by levaquin, followed by ceftazidime once prior urine cultures became known - the patient was hospitalized in [place] from 06/20/2019 until 06/25/2019 for sepsis due to citrobacter UTI in setting of urinary retention). Patient's initial urine culture grew mixed ashly <10,000 CFU; repeat done 3 days later was negative. Ultimately, we do not believe the patient truly had a UTI on this admission and that it had been ruled out. The patient was evaluated by urology, who recommended discontinuation of aguilera catheter with timed voiding/straight caths Q4hrs. The patient demonstrated ability to self-catheterize, but is resistant to doing so on a recommended schedule, resulting in continuous retention of urine, likely contributing to her Cr not going down (it is 2.22 on the day of transfer from baseline of likely around 1.2 on discharge from [facility])....The patient ruled in for Bilateral DVT's (extensive LLE, R profundas femoral vein). She was initiated on anticoagulation initially with heparin drip given anemia, then converted to lovenox, on which she remains so far. The patient did have daily fevers, for which blood cultures were obtained. Initial 2 sets, collected at 4 am on 07/03/2019, resulted in 2 aerobic bottles being positive for yeast, speciation pending. Repeat blood cultures done on the evening of 07/03/2019 have 1 bottle positive for yeast. This presents a concern for fungemia and possible fungal endocarditis. The patient had a negative TTE on 07/04/2019, not revealing valvular pathology, but may ultimately require a ZOFIA. A phone consultation was sought with ID at [facility]. The patient was recommended to be initiated on mycofungin or caspofungin unless adam was visually identified on gram stain (it was not - speciation is unclear). [facility] does not have caspofungion or mycofungin in house and, for this as well as follow up with ID, the patient is being transferred to [facility] under the care of Dr Jackson, who accepted the patient in transfer (and whose help is appreciated!). At the time of this consultation this morning it was known Jes was likely to be transferred to another hospital, thus this psychiatric consultation was less focused on full assessment and treatment planning and more toward addressing any acute concerns and initiating the idea of addressing her mental health issues to improve her overall health. Jes was eager to talk, was noncommittal as to whether she wanted her father in the room or not, and was fine with my making the decision to speak with Jes alone. Jes was able to tell me that I have fungus in my blood. She was aware that transfer to another hospital for treatment was being planned and she was in agreement with this. Mood: she reports recent severe depression in which she stayed in bed all the time. She states that she doesn't have many friends outside of her family, but she also states that she enjoys going out and being social. Neuropathic pain and recent inability to walk has caused her to socialize less, however, she states that depressive symptoms restricted her activities even before neuropathy did. She reports that she feels less depressed right now than she did at her worst recently. She denies hopelessness and helplessness and has desire to work toward getting better which means managing her diabetes better and eating better. I don't want to keep living like this. I want to get better. She has also made an effort during this admission not to be in bed during the day but in the chair, and she has enjoyed working on puzzles. I love puzzles. She reports that a number of years ago she was suicidal but hasn't felt that way recently and doesn't feel this way now. She reports trying Zoloft in her early teen years for depression around the time that she was in therapy. She states it wasn't helpful, perhaps because the dose was too low and she didn't take it for very long. She does not remember is causing adverse effects. She is interested in treatment for depression but does not want to start a medication right now while she is acutely ill. Trauma: she reports a significant childhood trauma history which still affects her now. Some of the trauma she spontaneously shared and some she alluded to but stated she did not want to discuss it. When she was in therapy as an early teenager she did not want to deal with it and just wanted to block it out. She states that her father wanted her to come live with him in [place] to get better medical care. She flew by herself in a wheelchair from [place] to [place] where she now lives with father and one of her brothers. This is a brother she gets along with. She says her dad is a good support because he is more strict about reminding her to check her glucose and to take her insulin. She reports feeling safe living with father and brother. Substances: not evaluated at this visit Safety: - current suicidal/homicidal/violent ideations: none - guns in home or access to weapons: not reviewed during this visit. I met with father separately from Jes with Jes's permission. Father states that he was very concerned about Jes's health, that when he tried to bring her to [place] a couple years ago she had no supports around her and was too isolated and he was still working (now retired) and so she chose to go back to mother in [place]. He is very anxious that she receive psychiatric help as well as medical help. PAST PSYCHIATRIC HISTORY: Hospitalizations: not verified Suicide attempts: not clarified if past history included suicide attempt or only suicidal ideation Prescribers: Medications: - sertraline in the past, short course, low dose, not helpful. Therapist: in the past as an early teenager, not helpful Social history: - recently moved to [place] on father's initiative to live with father and brother and to receive medical care. Was living in [place] with mother and other family members. - has two younger half siblings, many older brothers some full and some half or step. She reports not being sure how many brothers she has. Was born in [place] and grew up there, parents when she was around age 3 or 4 and she lived at her father's house with her older brothers. - was educated into 10th grade and then she stopped going to school for health reasons. Never diagnosed learning disability, never with educational supports. Family history: not obtained during this visit. REVIEW OF SYSTEMS: Constitutional: feels unwell Cardiovascular: No chest pains or dizziness Respiratory: no cough or shortness of breath Musculoskeletal: +weakness GI: incontinent of stool per nursing - did not discuss with patient and she did not mention; appetite is good, right now hungry and wants to eat more breakfast Genitourinary: +incontinent of urine, per nursing staff does not want any assistance with straight cathing, quite protective of [place] area. Neurological: +weakness and neuropathy bilaterally, +pain when feet are touched Psych: see above Endocrine: No cold or heat intolerance. +trying to manage blood sugars better Hem/Lymph: +blood clots Allergies: see chart MENTAL STATUS EXAM: Constitutional: appears ill, pale, sitting up in chair with legs down and edematous. Good eye contact and social graces intact. Attitude: cooperative, eager Psychomotor: no retardation or agitation Speech: nonpressured, normal volume and prosody. No articulation problems noted. Associations: no looseness Thought process: a bit slowed, a bit nonlogical, often trailing off - uncertain if this is baseline inattentiveness or mild delirium Thought content without psychosis, delusions, obsessions No suicidal or homicidal ideations Hallucinations denied Mood: I'm not too depressed, I'm feeling better. Affect: young, full, euthymic, calm, lacking in Attention/Concentration: a bit lacking Judgment/insight: poor/poor Oriented to self, place and circumstance Language appropriate to age and education Fund of knowledge appropriate to age and education Memory intact to recent and remote events Other cognitive testing: none Assessment and Plan Assessment and plan (1) Depression: Status: Chronic Assessment and plan: Jes herndon is a 19 year old female with past psychiatric history of depression and past medical history of diabetes mellitus type 1 since around age 9 very poorly controlled with significant neurological and nephrological consequences who was admitted for hypoglycemia and UTI. In the course of hospitalization she was found on blood cultures to have fungemia needing transfer to another hospital for appropriate intravenous antibiotic treatment along with management of other acute medical issues related to uncontrolled diabetes. History and clinical exam are consistent with major depressive disorder, recent episode severe but currently likely at moderate level, and with symptoms suggestive of posttraumatic stress disorder but not confirmed during this conversation. Attentional difficulties could be due to baseline attentional difficulties, but it also could be due to delirium related to acute infection. She expresses interest in improving her physical and mental health through changes in habits and behaviors. She does not want to start an antidepressant at this time and I agree with this plan given the acute nature of her medical condition and transitions in her care. I hope that if she will be at [facility] for a few days that psychiatry consultation will follow her and perhaps start an antidepressant before discharge to be followed by primary care in the outpatient setting. Safety: low risk for intentional harm to self or others given no ideations of such and none in the recent past. Recommendations: - transfer to appropriate level of medical care I discussed my findings in person with Dr. Duncan immediately after meeting with Jes. Thank you very much for this consultation. Visit Statistics Total Visit Minutes: 55 Visit Time Allocation >50% of face to face visit spent in counseling (Extensive teaching, explanation and instructions. Counseling as appropriate. Review of plans, and discussion concerning medical problems dealt with at this visit. Discussion of benefits/risks of treatment, anticipated course of events, potential medication side effects, options, alternatives, and follow up plans. Questions were solicited and answered, and the patient verbalized understanding.), and/or coordination of care. [facility] Medical History Bilateral hydronephrosis (Chronic) Chronic diarrhea (Chronic) Cdiff negative Diabetic neuropathy (Acute) Type 1 diabetes mellitus, uncontrolled (Chronic) Surgical History No significant past surgical history (Acute) Social History Smoking/Tobacco Use Status: Never Alcohol Intake: never Drug use: Never Results Last Vital Signs Temp 36.6 C 03/04/20 11:13 Pulse 100 H 07/07/19 11:13 Resp 17 07/07/19 11:13 BP 99/67 L 07/07/19 11:13 Pulse Ox 99 07/07/19 11:13 Labs Result diagrams: 07/07/19 06:19 07/07/19 06:19 Labs: Laboratory Results - last 24 hr 07/06/19 07/07/19 07/07/19 16:13 06:19 06:19 WBC 10.33 RBC 2.63 L Hgb 7.3 L Hct 22.8 L MCV 86.7 MCH 27.8 MCHC 32.0 RDW 12.8 Plt Count 668 H MPV 9.0 Immature Gran % 1.5 Neutrophils % 59.2 Lymphocytes % 22.1 Monocytes % 14.9 Eosinophils % 1.3 Basophils % 1.0 Absolute Neutrophils 6.12 Absolute Lymphocytes 2.28 Absolute Monocytes 1.54 H Absolute Eosinophils 0.13 Absolute Basophils 0.10 Differential Comment Agrees w/ instrument RBC Morphology See below Polychromasia Present Anisocytosis 1+ Sodium 132 L Potassium 5.0 Chloride 101 Carbon Dioxide 19.9 L Anion Gap 11.1 H BUN 40 H Creatinine 2.22 H Estimated GFR/1.73 m2 27.88 Glucose 369 H D 357 H Lactate Calcium 8.2 L Magnesium 2.0 C-Reactive Protein 07/07/19 07/07/19 08:35 08:35 WBC RBC Hgb Hct MCV MCH MCHC RDW Plt Count MPV Immature Gran % Neutrophils % Lymphocytes % Monocytes % Eosinophils % Basophils % Absolute Neutrophils Absolute Lymphocytes Absolute Monocytes Absolute Eosinophils Absolute Basophils Differential Comment RBC Morphology Polychromasia Anisocytosis Sodium Potassium Chloride Carbon Dioxide Anion Gap BUN Creatinine Estimated GFR/1.73 m2 Glucose Lactate 2.2 H* Calcium Magnesium C-Reactive Protein 10.02 H
[2019-07-07 14:30] LABS: Lactate 1.2 mmol/L (0.6-1.4)
--- NOTE | 2019-07-07 14:48 | W.PM.DS.N ---
Date of service: 07/07/19 Time of Service: 14:48 DS: Diagnosis Discharge Diagnosis (1) Sepsis: Status: Acute (2) Fungemia: Status: Acute (3) Acute deep vein thrombosis (DVT) of right femoral vein: Status: Acute (4) Acute deep vein thrombosis (DVT) of left lower extremity: Status: Acute (5) Acute renal failure superimposed on chronic kidney disease: Status: Acute Asessment and Plan: Both pre- and post-renal (6) Type 1 diabetes mellitus, uncontrolled: Status: Chronic (7) Urinary retention with incomplete bladder emptying: Status: Acute (8) Neurogenic bladder: Status: Acute (9) Diabetic neuropathy: Status: Acute (10) UTI (urinary tract infection): Status: Ruled-out (11) Acute on chronic anemia: Status: Acute Asessment and Plan: S/p transfusion on 1 unit of pRBCs on 07/02/2019 (12) Depression: Status: Chronic Asessment and Plan: Would benefit from a psychiatry consultation/follow up while at [facility] (13) Hypoalbuminemia: Status: Chronic (14) Hypoglycemia: Status: Resolved (15) Proteinuria: Status: Chronic (16) Neurogenic bowel: Status: Chronic (17) Bilateral hydronephrosis: Status: Chronic (18) Chronic diarrhea: Status: Chronic Asessment and Plan: C. Diff negative on 07/03/2019 (19) Physical deconditioning: Status: Acute Discharge Plan Disposition Patient Disposition: [facility] Condition: Serious Discharge Details Chief Complaint: Diabetes Clinical Impression: Hypoglycemia, Acute kidney injury, Hypoalbuminemia, Acute on chronic anemia, Acute urinary retention, UTI (urinary tract infection) Reason For Visit: UTI, WEAKNESS, HYPOGLYCEMIA Admit Date/Time: 07/02/19 16:25 Admit Provider: Matthew Phillips Attending Provider: Matthew Phillips Primary Care Provider: None,None ED Provider: Rosa Dietz Hospital Course Hospital Course: Ms Martinez is a 19 year old female with PMHx of uncontrolled type 1 diabetes mellitus with neuropathy, neurogenic bladder resulting in urinary retention and B hydronephrosis, who is supposed to but is noncompliant with self-catheterization, as well as chronic BLE edema, who was admitted to [facility] on 07/02/2019 after presenting to [facility] ED for an episode of unresponsiveness due to hypoglycemia with BG of 36. Her blood sugars quickly went up to 400 with therapy. She was never in DKA. To this day, we are titrating patient's insulins for improved glycemic control. At this time, she is on lantus 50 units daily, as well as resistant corrective scale AC&HS and carb counting ratio of 1 unit: 5 grams of carbs. The patient was also found to be in PAM, had edema of BLEs and anemia. She was retaining urine and had a aguilera catheter placed. Given decreased rectal tone, cauda equina had to be ruled out - MRI done on admission was negative. Neurology consult should be pursued at [facility] for what appears to be diabetic neuropathy/autonomic dysfunction. The patient could benefit from a nerve conduction study. On admission, there was a suspicion for a UTI, for which the patient was started on empiric antibiotics (cerftriaxone, followed by levaquin, followed by ceftazidime once prior urine cultures became known - the patient was hospitalized in [place] from 06/20/2019 until 06/25/2019 for sepsis due to citrobacter UTI in setting of urinary retention). Patient's initial urine culture grew mixed ashly <10,000 CFU; repeat done 3 days later was negative. Ultimately, we do not believe the patient truly had a UTI on this admission and that it had been ruled out. The patient was evaluated by urology, who recommended discontinuation of aguilera catheter with timed voiding/straight caths Q4hrs. The patient demonstrated ability to self-catheterize, but is resistant to doing so on a recommended schedule, resulting in continuous retention of urine, likely contributing to her Cr not going down (it is 2.22 on the day of transfer from baseline of likely around 1.2 on discharge from [facility]). The patient ruled in for Bilateral DVT's (extensive LLE, R profundas femoral vein). She was initiated on anticoagulation initially with heparin drip given anemia, then converted to lovenox, on which she remains so far. The patient did have daily fevers, for which blood cultures were obtained. Initial 2 sets, collected at 4 am on 07/03/2019, resulted in 2 aerobic bottles being positive for yeast, speciation pending. Repeat blood cultures done on the evening of 07/03/2019 have 1 bottle positive for yeast. This presents a concern for fungemia and possible fungal endocarditis. The patient had a negative TTE on 07/04/2019, not revealing valvular pathology, but may ultimately require a ZOFIA. A phone consultation was sought with ID at [facility]. The patient was recommended to be initiated on mycofungin or caspofungin unless adam was visually identified on gram stain (it was not - speciation is unclear). [facility] does not have caspofungion or mycofungin in house and, for this as well as follow up with ID, the patient is being transferred to [facility] under the care of Dr Jackson, who accepted the patient in transfer (and whose help is appreciated!). The patient is hemodynamically stable at this time and agreeable to transfer. Given the fact that the patient has B DVTs, phone consult was sought with vascular surgery at [facility] who felt that the patient would not require intervention for her DVTs which are likely septic other than medical therapy (anticoagulation, antifungals). The patient ruled out for a PE with a negative VQ scan on 07/05/2019. As far as anemia, Ms Martinez was hemoccult negative, but felt to be symptomatic of her anemia and received 1 unit pRBCs on day of admission. It is likely she has anemia of chronic disease. Finally, the patient was evaluated by psychiatry for her depression, which is felt to be a factor in her lack of compliance with her insulin regimen. While she is not suicidal and is not deemed to be a risk to self in that regard, she could benefit from ongoing psychiatry follow up at [facility] if available. Outpatient referrals have been set up for Ms Martinez at [facility] for hem/onc for her B DVTs, endocrinology, and nephrology. Total Critical Care Time caring for patient on day of discharge is 120 minutes. Home Meds and New Rx's Prescriptions: No Action Lantus U-100 Insulin 100 unit/mL Solution 30 unit SUBCUT DAILY RF: 0 Humalog KwikPen Insulin 200 unit/mL (3 mL) Insulin Pen 30 unit SUBCUT DAILY RF: 0 Discharge Instructions Referrals: ENDOCRINOLOGY,[facility] [OTHER] - (Type 1 diabetic, uncontrolled, establishing care.) HEMATOLOGY/ONC,[facility] [OTHER] - (BLE DVTs) NEPHROLOGY,[facility] [OTHER] - (Type 1 diabetic with proteinuria, post-renal PAM on CKD) Activity:: Activity as Tolerated Diet:: Carb Counting Discharge Orders Discharge Orders: Discharge Order (Routine); Ordered 07/07/19 Ordered By: Darshana Duncan DS: Summary Status at Discharge Functional status at discharge: uses cane/walker Overall status at discharge: patient is not back to baseline Mental Status: mental status grossly normal Speech and Movement: speech and movement normal Mood: congruent mood Affect: sad Exam Narrative Exam Narrative: General: Chronically ill-appearing female, pale, sitting up in a chair, looks at her father for majority of answers HEENT: EOMI, MMM Heart: RRR, tachycardic Lungs: CTAB Abdomen: soft, nontender, nondistended Extremities: 2+ pitting edema B Psych Mental Status: mental status grossly normal Speech and Movement: speech and movement normal Mood: congruent mood Affect: sad DS: Data Vitals/I&O Vitals and I&O: Vital Signs Temperature 36.6 C 07/07/19 11:13 Temperature Source Temporal Artery Scan 07/07/19 11:13 Pulse 100 H 07/07/19 11:13 Pulse Rhythm Regular 07/07/19 08:37 Pulse 84 07/02/19 11:10 Respiratory Rate 17 07/07/19 11:13 Respiratory Effort Non-Labored 07/07/19 08:37 Respiratory Depth Normal 07/07/19 08:37 Respiratory Pattern Normal 07/07/19 00:36 Blood Pressure 99/67 L 07/07/19 11:13 Blood Pressure Mean 83 07/02/19 11:01 Blood Pressure Position Supine 07/02/19 08:20 Pulse Oximetry 99 07/07/19 11:13 Oxygen Delivery Method Room Air 07/07/19 11:13 Oxygen Flow Rate 0 07/07/19 11:13 Pain Level 0 07/07/19 11:13 Comment 07/06/19 23:25 Intake & Output 07/06/19 07/07/19 07/07/19 23:59 11:59 23:59 Intake Total 590 / 1820 874 / 874 Output Total 3100 / 4800 3325 / 4825 1500 / 4825 Balance -2510 / -2980 -2451 / -3951 -1500 / -3951 Intake: IV 100 / 310 200 / 200 Oral 490 / 1510 674 / 674 Output: Urine 3100 / 4800 2125 / 2875 750 / 2875 Post Void Residual 1200 / 1950 750 / 1950 Other: Urine Color Yellow Pale Yellow Urine Appearance Clear Clear Cloudy Urine Odor None None Comment STRAIGHT CATH. pt self cath'd herself while sitting on the toilet and was able to get 1000+ out pt self cathed. Voiding Methods Urinal Self-Catheterization Self-Catheterization Data Completed and Pending Completed studies during hospitalization [Text1]: US renal 07/02/2019: Bilateral renal enlargement and increased renal echogenicity may be secondary to medical renal disease. There is a question of mild bilateral hydronephrosis. CXR 07/02/2019: Negative portable chest. MRI Lumbar spine 07/02/2019: Negative MRI of the lumbar spine. No abnormalities seen in the region of the cauda equina. Bilaterally enlarged kidneys and question of mild hydronephrosis. US venous BLE's 07/03/2019: Extensive left lower extremity deep venous thrombosis. Thrombus is also visible in the right profundus femoral vein. 2D echo 07/04/2019: Left Ventricle : The left ventricle is normal size. The left ventricular systolic function is normal. There is normal left ventricular wall thickness. There is normal LV segmental wall motion. The left ventricular diastolic function is normal. LVEF is 55-60%. Right Ventricle : The right ventricle is normal size. The right ventricular systolic function appears normal. Atria : The left atrium size is normal. The right atrium size is normal. Valves: There are no hemodynamically significant valvular lesions. Great Vessels : The IVC is normal in size and collapses >50% with inspiration. There is not enough tricuspid regurgitation to estimate RVSP. There are no prior echocardiograms available for comparison. VQ scan 07/05/2019: Normal ventilation/perfusion lung scan. Labs on day of discharge: Labs from last 24 hours 07/07/19 07/07/19 07/07/19 14:25 08:35 08:35 WBC RBC Hgb Hct MCV MCH MCHC RDW Plt Count MPV Immature Gran % Neutrophils % Lymphocytes % Monocytes % Eosinophils % Basophils % Absolute Neutrophils Absolute Lymphocytes Absolute Monocytes Absolute Eosinophils Absolute Basophils Differential Comment RBC Morphology Polychromasia Anisocytosis Sodium Potassium Chloride Carbon Dioxide Anion Gap BUN Creatinine Estimated GFR/1.73 m2 Glucose Lactate 1.2 2.2 H* Calcium Magnesium C-Reactive Protein 10.02 H Fungal Specimen Source Fungal Culture Status Fungal Culture Final Fungal Smear Result 03/04/20 03/04/20 03/03/20 06:19 06:19 Unknown WBC 10.33 RBC 2.63 L Hgb 7.3 L Hct 22.8 L MCV 86.7 MCH 27.8 MCHC 32.0 RDW 12.8 Plt Count 668 H MPV 9.0 Immature Gran % 1.5 Neutrophils % 59.2 Lymphocytes % 22.1 Monocytes % 14.9 Eosinophils % 1.3 Basophils % 1.0 Absolute Neutrophils 6.12 Absolute Lymphocytes 2.28 Absolute Monocytes 1.54 H Absolute Eosinophils 0.13 Absolute Basophils 0.10 Differential Comment Agrees w/ instrument RBC Morphology See below Polychromasia Present Anisocytosis 1+ Sodium 132 L Potassium 5.0 Chloride 101 Carbon Dioxide 19.9 L Anion Gap 11.1 H BUN 40 H Creatinine 2.22 H Estimated GFR/1.73 m2 27.88 Glucose 357 H Lactate Calcium 8.2 L Magnesium 2.0 C-Reactive Protein Fungal Specimen Source Pending Fungal Culture Status Pending Fungal Culture Final Pending Fungal Smear Result Pending 07/06/19 16:13 WBC RBC Hgb Hct MCV MCH MCHC RDW Plt Count MPV Immature Gran % Neutrophils % Lymphocytes % Monocytes % Eosinophils % Basophils % Absolute Neutrophils Absolute Lymphocytes Absolute Monocytes Absolute Eosinophils Absolute Basophils Differential Comment RBC Morphology Polychromasia Anisocytosis Sodium Potassium Chloride Carbon Dioxide Anion Gap BUN Creatinine Estimated GFR/1.73 m2 Glucose 369 H D Lactate Calcium Magnesium C-Reactive Protein Fungal Specimen Source Fungal Culture Status Fungal Culture Final Fungal Smear Result 07/06/19 16:05 Blood Blood Culture - Pending 07/06/19 16:05 Blood Blood Culture - Pending Preliminary micro results at discharge 07/03/19 04:30 Blood Culture - Preliminary Blood YEAST 07/03/19 21:20 Blood Culture - Preliminary Blood YEAST 07/03/19 04:40 Blood Culture - Preliminary Blood YEAST 07/03/19 21:31 Blood Culture - Preliminary Blood NO GROWTH 72 HOURS 07/06/19 16:05 Blood Culture - Pending Blood 07/06/19 16:05 Blood Culture - Pending Blood [facility] Medical History (Updated 07/07/19 @ 14:59 by Darshana Duncan MD) Bilateral hydronephrosis (Chronic) Chronic diarrhea (Chronic) Cdiff negative Diabetic neuropathy (Acute) Type 1 diabetes mellitus, uncontrolled (Chronic) Surgical History No significant past surgical history (Acute) Social History Smoking/Tobacco Use Status: Never Alcohol Intake: never Drug use: Never
--- NOTE | 2019-07-07 15:32 | CMPROGNOTE_ITS ---
- If Service Date Differs Date of service: 07/07/19 Time of Service: 15:32 Care Management Progress Note S/O: Jes is being transferred to [facility] r/t fungal infection and need for IV abx. She will resume community supports when she returns from inpatient at [facility]. CM has contacted CCC at [facility] and requested follow up with Jes and family to provide support once she returns to the community. A: Jes is a 19 year old female admitted with bilat DVT's, hypoglycemia, UTI, weakness and now found to have fungal infection positive in multiple blood cultures. P; Jes is being transferred to [facility] for higher level of care, via ambulance.
--- NOTE | 2019-07-07 15:32 | PDOC.CMPRO ---
- If Service Date Differs Date of service: 07/07/19 Time of Service: 15:32 Care Management Progress Note S/O: Jes is being transferred to [facility] r/t fungal infection and need for IV abx. She will resume community supports when she returns from inpatient at [facility]. CM has contacted CCC at [facility] and requested follow up with Jes and family to provide support once she returns to the community. A: Jes is a 19 year old female admitted with bilat DVT's, hypoglycemia, UTI, weakness and now found to have fungal infection positive in multiple blood cultures. P; Jes is being transferred to [facility] for higher level of care, via ambulance.
--- NOTE | 2019-07-08 12:13 | PT.INTREAT ---
PT Notes Visit Reasons: UTI, WEAKNESS, HYPOGLYCEMIA Inpatient Physical Therapy Treatment Note [facility] Date: 07/07/2019 SUBJECTIVE: Jes states that she doesn't feel like walking or exercising right now, but is agreeable to go OBJECTIVE: [] BED MOBILITY/TRANSFERS Sit-stand:I Stand-sit: I GAIT Assistive Device: FWW Weight bearing: full Assist: SBA Distance: 120' THEREX: performed a global LE stabilization routine, balance ex. See flowsheet for details. ASSESSMENT: tolerated session well. Noting weakness in her ankle, making balance ex challenging. She c/o numbness and tingling of feet, as well as swelling. PLAN: continue PT POC TREATMENT CODE/TIME: 25 min, [id number], [id number].
--- NOTE | 2019-07-08 18:06 | INDS_ITS ---
Date of service: 07/08/19 PT Notes Visit Reasons: UTI, WEAKNESS, HYPOGLYCEMIA Physical Therapy Inpatient Discharge Summary Date: 07/08/2019 Dates of Service: 07/03/2019 through 07/07/2019 This is a clinical summary of care provided on the duration of dates listed above. No charge was made in the completion of this documentation. Referring Doctor: Delon Tran MD PT Orders: PT CONSULT: UTI, hypoglycemia, acute kidney injury Precautions: Falls Patient Profile/Admitting Diagnosis: A 19-year-old female who was admitted yesterday with UTI, hypoglycemia kidney injury. PMHX: Type 2 diabetes Social History/Home Situation: Living in [place] up until this week when she was called home by her father due to her medical condition. Patient states that she was ambulatory until this past week. She is currently living with her father, and he plans on keeping her home for the current time. She seems receptive to this idea. Current Functional Limitations:. Requires assistance with all functional tasks including getting out of bed etc. I recommend an OT work-up for her dressing and bathing skills, etc. Equipment Owned/DME: Her father owns a ranch with 2 steps entering the home. The bathroom has a combo tub shower with a shower chair and flexible shower hose. Subjective: NT Objective: NT General Observation:NT Mental Status: NT Pain: NT ROM: On evalaution, extremity articular motion is full and painless with movement. She has intrinsic wasting of her hands. She has edematous lower extremities Strength: On evalaution, her upper extremity strength is 5/5, proximal lower extremity musculature is 3/5, her EHL, EDC, anterior tib and peroneals are 2/5. Her gastrocsoleus is 4/5. Neuro: Sensations intact light touch, negative hypertonicity, proprioception is intact, fingertips to nose is accurate with minimal ataxia and her repetitive a rm movements are normal. She has a positive Romberg sign Bed Mobility/Transfers: Requires assistance with her lower extremities when assuming the supine to sitting, and sitting supine positions Gait: 200 feet with SBA with FWW. She is unable to walk on her heels and toes, but has enough active dorsiflexion to clear her toes during swing phase. No foot slap. Balance: Noonan balance test was performed and she scored less than 35/56. Score 45 or less indicates a fall risk requiring an assistive device Static Sitting: Good Dynamic Sitting: Good Static Standing: Fair requiring contact guarding and a wider base of support Dynamic Standing: Poor Assessment: Patient is a 19 year old female referred to physical therapy services with the diagnosis of hypoglycemia, UTI, and acute kidney injury. Patient was transferred to [facility] [place] urgent medical intervention for sepsis and fungemia. Goals: Goals X1 week 1. Supine-Sit independent NOT MET 2. Sit-Supine Next field independent NOT MET 3. Sit-Stand NOT MET 4. Gait independent ambulation with a wheeled walker for greater than 100 feet NOT MET 5. Stairs independent with a railing up to 5 steps NOT MET 6. Independent with home exercise program NOT MET 7. Improve balance NOT MET 8. Increase lower extremity strength NOT MET DISCHARGE RECOMMENDATIONS: Patient was discharged to [facility] on 07/07/2019 for immediate medical intervention. TREATMENT CODE/TIME: NC. Thank you very much for this referral. Martha Wan PT, DPT, CLT [facility] Inpatient PT at [facility]
== END 2019-07-07 15:52 | disposition short-term general hospital (02) | DRG 872 ==
LOC: ER 13:34 → MS 14:57
PROVIDERS: Family Medicine; Internal Medicine; Nurse Practitioner Acute Care; Nurse Practitioner Family; Admitting Provider Internal Medicine; Emergency Provider Physician Assistant; Visit Provider Internal Medicine
DX: B37.7 Candidal sepsis (principal); B49 Unspecified mycosis; I82.411 Acute embolism and thrombosis of right femoral vein; I82.4Z2 Acute embolism and thrombosis of unspecified deep veins of left distal lower extremity; N17.9 Acute kidney failure, unspecified; K59.2 Neurogenic bowel, not elsewhere classified; N13.30 Unspecified hydronephrosis; N18.9 Chronic kidney disease, unspecified; E10.65 Type 1 diabetes mellitus with hyperglycemia; R33.9 Retention of urine, unspecified; N31.9 Neuromuscular dysfunction of bladder, unspecified; E10.42 Type 1 diabetes mellitus with diabetic polyneuropathy; E10.22 Type 1 diabetes mellitus with diabetic chronic kidney disease; D64.9 Anemia, unspecified; F32.9 Major depressive disorder, single episode, unspecified; E88.09 Other disorders of plasma-protein metabolism, not elsewhere classified; R80.9 Proteinuria, unspecified; K52.9 Noninfective gastroenteritis and colitis, unspecified; Z72.89 Other problems related to lifestyle; R60.0 Localized edema
CPT/HCPCS: 36410; 36415; 36416; 36430; 51702; 76770; 78582; 80048; 80053; 80061; 80307; 81025; 82947; 82962; 86850; 86900; 86901; 86920; 87040; 87077; 87449; 87505; 93005; 96361; 96365; 96366; 97110; 97162; 97530; 99223; 99232; 99233; 99254; 99285; 99291; 71045; 72148; 81003; 81015; 81050; 82565; 82607; 82728; 82746; 83036; 83540; 83550; 83605; 83630; 83735; 83880; 84132; 84155; 84156; 84443; 84484; 85014; 85018; 85025; 85610; 85730; 86038; 86140; 87086; 87324; 93010; 93306; 93970; G0378; J0713; J1650; J1941; J1956; J2543; J3475; P9016

== ENCOUNTER 2019-07-19 14:21 | Outpatient (REF) | payer MEDICAID, SELFPAY ==
[2019-07-19 19:29] LABS: HCT 29.7 % (36.0-46.0); HGB 9.5 g/dL (12.0-15.5); Mean Corpuscular Volume 87.6 fL (80-95); Mean Platelet Volume 9.9 fL (8.0-11.0); RBC 3.39 m/cumm (4.00-5.20); RBC Distribution Width 13.9 % (11.7-14.6)
[2019-07-19 19:38] LABS: Anion Gap 12.7 mmol/L (3-11); C-Reactive Protein 5.69 mg/dL (0.0-0.3); CO2 22.3 mmol/L (21.0-32.0); CREATININE 2.31 mg/dL (0.55-1.02); Calcium 9.2 mg/dL (8.5-10.1); Chloride 104 mmol/L (98-107); Estimated GFR 26.63 (mL/min/1.73m2); Glucose 78 mg/dL (74-106); Potassium 5.2 mmol/L (3.5-5.1); Sodium 139 mmol/L (136-145)
[2019-07-19 19:45] LABS: Platelet Count 768 x1000/uL (130-400); White Blood Cell Count 10.37 k/cumm (4.4-10.8)
[2019-07-19 19:49] LABS: BUN 88 mg/dL (7-18)
[2019-07-19 20:24] LABS: PROTEIN 32.2 mg/dL (0.0-11.9); TOTAL PROTEIN,URINE TIMED 1384.6 mg/24hr (0.0-149.1); Total Volume 4300 ml
[2019-07-20 09:18] LABS: ALT 9 U/L (14-59); AST 12 U/L (15-37); Albumin 2.4 g/dL (3.4-5.0); Alkaline Phosphatase 161 U/L (46-116); Bilirubin, Total 0.2 mg/dL (0.2-1.0); Total Protein 8.5 g/dL (6.4-8.2)
[2019-07-20 11:37] LABS: Creatinine,Urine 15.28 mg/dL; POTASSIUM,URINE RANDOM 17 mmol/L; Sodium, Urine 61 mmol/L
[2019-07-20 11:53] LABS: CLEAVED CELLS 262 mmol/24h (40-220); Creatinine,24hr Ur 0.66 g/24hr (0.60-1.80); SAMPLE LIPEMIA CHECK 4300 ml; Total Volume 4300 ml
[2019-07-20 13:25] LABS: Abs Immature Grans 0.09 k/cumm (0.0-0.09)
[2019-07-20 13:28] LABS: Absolute Lymphocyte Count 1.35 k/cumm (1.2-3.4); Absolute Monocyte Count 0.73 k/cumm (0.11-0.7); Absolute Neutrophil Count 7.88 k/cumm (1.2-6.7)
[2019-07-20 13:29] LABS: Absolute Eosinophil Count 0.21 k/cumm (0.0-0.7)
[2019-07-20 13:30] LABS: Polychromasia Present
[2019-07-20 13:31] LABS: Diff Comment Manual Differential
== END 2019-07-19 14:41 ==
LOC: NCHCN 14:21
PROVIDERS: Visit Provider Nurse Practitioner Family
DX: E88.09 Other disorders of plasma-protein metabolism, not elsewhere classified (principal); D53.9 Nutritional anemia, unspecified; N17.9 Acute kidney failure, unspecified; R80.9 Proteinuria, unspecified
CPT/HCPCS: 80048; 80053; 85027; 81050; 82570; 84133; 84155; 84300; 85007; 86140

== ENCOUNTER 2019-07-19 20:11 | Emergency (ER) | payer MEDICAID, SELFPAY ==
[2019-07-19 20:15] VITALS: BP 126/82; PULSE 98; RESP 14; TEMP 37.2; O2SAT 99
--- NOTE | 2019-07-19 20:57 | W.ED.GENAD ---
Discharge Plan Disposition Patient Disposition: HOME Condition: Stable Discharge Details Chief Complaint: GenMedical Clinical Impression: Dehydration, Elevated platelet count, Contusion Primary Care Provider: Rosemarie Go ED Provider: Glen Waggoner Home Meds and New Rx's Prescriptions: Continued Lantus U-100 Insulin 100 unit/mL Solution 45 unit SUBCUT DAILY RF: 0 Humalog KwikPen Insulin 200 unit/mL (3 mL) Insulin Pen 0 - 30 unit SUBCUT DAILY RF: 0 gabapentin 300 mg Capsule 300 mg PO TID RF: 0 apixaban 5 mg Tablet 5 mg PO DIRECTED RF: 0 ferrous sulfate 324 mg (65 mg iron) Tablet,Delayed Release (Dr/Ec) 324 mg PO BID RF: 0 citalopram 10 mg Tablet 10 mg PO DAILY RF: 0 lidocaine HCl 2 % Jelly 1 applic intra-urethral DIRECTED RF: 0 folic acid 1 mg Tablet 1 mg PO DAILY RF: 0 thiamine HCl (vitamin B1) 100 mg Tablet 100 mg PO DAILY RF: 0 micafungin 50 mg Recon Soln 150 mg IV RF: 0 Discharge Instructions Instructions: Dehydration (ED), Contusion in Adults (ED) Additional Instructions: Please drink plenty of clear fluids to stay hydrated. Please contact your primary care physician to arrange follow-up. Please follow-up with endocrinology and infectious disease. Return to the ER for any worsening or new concerning symptoms. Referrals: Rosemarie Go [Primary Care Provider] - Discharge Data Discharge Date/Time-TO BE ENTERED AT DEPARTURE: 07/19/19 21:20 Medical Decision Making 19-year-old female here after being notified by lab that her platelets on outpatient labs were too low. I reviewed the patient's labs from earlier today. Platelets are checked elevated. Patient does have chronically elevated platelets and they are slightly higher than usual at 768. Patient's BUN is acutely elevated at 88. Persistently elevated creatinine of 2.31. I suspect patient has dehydration with hemoconcentration. Encourage the patient to drink plenty of fluids to improve hydration status. Patient is monitoring blood sugars and taking insulin as prescribed. Patient does have some mild tenderness left forearm. Suspect contusion. Diagnostic imaging is not indicated. I advised that if she have persistent or any worsening pain she would need to have x-rays. Patient was encouraged to follow-up with her activity specialist, infectious disease specialist and primary care physician. HPI General Mode of arrival: ambulatory. Date/Time Provider Initiated Documentation: 07/19/19 20:34. Limitations to Documentation: no limitations. Information obtained by: patient. HPI Narrative: 19-year-old female with multiple medical problems including history of poorly controlled insulin-dependent diabetes, diabetic neuropathy, kidney disease, recently diagnosed fungemia, recently diagnosed bilateral DVTs, now on Eliquis, here at the prompting of lab personnel who called to notify her that outpatient labs were abnormal today. Patient was told that her platelets were too low and that she should come to the emergency department. Patient notes that on the way to the emergency department she stumbled and fell and landed on her left side. She notes that she injured her left forearm and left lower leg laterally. She is also worried that she dislodged her PICC line. Related Data Home Medications Medication Instructions Recorded Confirmed Humalog KwikPen Insulin 0 - 30 unit SUBCUT DAILY 07/02/19 07/19/19 Lantus U-100 Insulin 45 unit SUBCUT DAILY 07/02/19 07/19/19 apixaban 5 mg PO DIRECTED 07/19/19 07/19/19 citalopram 10 mg PO DAILY 07/19/19 07/19/19 ferrous sulfate 324 mg PO BID 07/19/19 07/19/19 folic acid 1 mg PO DAILY 07/19/19 07/19/19 gabapentin 300 mg PO TID 07/19/19 07/19/19 lidocaine HCl 1 applic INTRA-URETHRAL DIRECTED 07/19/19 07/19/19 micafungin 150 mg IV 07/19/19 thiamine HCl (vitamin B1) 100 mg PO DAILY 07/19/19 07/19/19 Allergies Allergy/AdvReac Type Severity Reaction Status Date / Time No Known Allergies Allergy Unverified 07/19/19 20:28 General Stated Complaint: GenMedical JOSH: 2 Review of Systems Constitutional Comments: Generalized weakness Respiratory Respiratory: Denies cough Gastrointestinal Gastrointestinal: Denies abdominal pain Endocrine Endocrine: Reports other (Swollen legs bilaterally) PFSH Medical History Bilateral hydronephrosis (Chronic) Chronic diarrhea (Chronic) Cdiff negative Diabetic neuropathy (Acute) Type 1 diabetes mellitus, uncontrolled (Chronic) Surgical History No significant past surgical history (Acute) Social History Smoking/Tobacco Use Status: Never Alcohol Intake: never Drug use: Never Do you feel safe at home: Yes Do you feel safe in your relationship?: Yes Exam Const General: cooperative and no acute distress Orientation: alert and awake HENTX Mouth: oral mucosae normal and other (Dry lips) Eyes Conjunctivae: normal conjunctivae Sclera: normal sclerae Resp Auscultation: clear to auscultation bilaterally, no rales, no rhonchi and no wheezes Cardio Jugular venous pressure: no JVD Rate: regular rate and not tachycardic Rhythm: regular rhythm GI Palpation: soft, not firm, no guarding, no masses, not rigid and nontender Skin General skin exam: no rashes or lesions noted Neuro General: patient alert, patient awake, patient oriented x3 and tone normal Extrem General: edema Laterality: bilateral Right upper extremity: shoulder/upper arm Details: other (To contact with no signs of dislodgment) Left upper extremity: elbow/forearm Details: tenderness (Minimal) Location: of the mid-shaft forearm, normal ROM and distal pulses intact; no swelling, no crepitus and no deformity Left lower extremity: lower leg Details: no tenderness, no localized swelling and no deformity Psych Appearance: grossly normal Mental Status: mental status grossly normal Course Vital Signs Vital signs: Vital Signs Temperature 37.2 C 07/19/19 20:15 Pulse 98 H 07/19/19 20:15 Respiratory Rate 14 07/19/19 20:15 Blood Pressure 126/82 07/19/19 20:15 Pulse Oximetry 99 07/19/19 20:15 Temperature 37.2 C 07/19/19 20:15 Temperature Source Skin 07/19/19 20:15 Pulse 98 H 07/19/19 20:15 Respiratory Rate 14 07/19/19 20:15 Respiratory Effort 07/19/19 20:38 Blood Pressure 126/82 07/19/19 20:15 Pulse Oximetry 99 07/19/19 20:15 Oxygen Delivery Method Room Air 07/19/19 20:15 Oxygen Flow Rate 0 07/19/19 20:15 Pain Level 6 07/19/19 20:15
== END 2019-07-19 21:20 | disposition home or self-care (01) ==
PROVIDERS: Emergency Provider Student in an Organized Health Care Education/Training Program; PCP Nurse Practitioner Family
DX: D47.3 Essential (hemorrhagic) thrombocythemia (principal); E86.0 Dehydration; S50.12XA Contusion of left forearm, initial encounter; W19.XXXA Unspecified fall, initial encounter; E10.22 Type 1 diabetes mellitus with diabetic chronic kidney disease; N18.9 Chronic kidney disease, unspecified; E10.40 Type 1 diabetes mellitus with diabetic neuropathy, unspecified; I82.411 Acute embolism and thrombosis of right femoral vein; Z79.01 Long term (current) use of anticoagulants; I82.402 Acute embolism and thrombosis of unspecified deep veins of left lower extremity; B49 Unspecified mycosis
CPT/HCPCS: 99282; 99283

== ENCOUNTER 2019-07-26 15:58 | Outpatient (REF) | payer MEDICAID, SELFPAY ==
[2019-07-26 17:38] LABS: Abs Immature Grans 0.04 k/cumm (0.0-0.09); Absolute Basophil Count 0.09 k/cumm (0.0-0.2); Absolute Eosinophil Count 0.29 k/cumm (0.0-0.7); Absolute Lymphocyte Count 2.17 k/cumm (1.2-3.4); Absolute Monocyte Count 1.29 k/cumm (0.11-0.7); Absolute Neutrophil Count 7.34 k/cumm (1.2-6.7); Basophils % 0.8; Eosinophils % 2.6; HCT 29.3 % (36.0-46.0); HGB 9.5 g/dL (12.0-15.5); Immature Grans % 0.4 %; Lymphocytes % 19.3; Mean Corp. HGB Concentration 32.4 g/dL (32.0-36.0); Mean Corpuscular Hemoglobin 27.9 pg (27.0-33.0); Mean Corpuscular Volume 86.2 fL (80-95); Mean Platelet Volume 9.6 fL (8.0-11.0); Monocytes % 11.5; Neutrophils % 65.4; RBC Distribution Width 13.7 % (11.7-14.6); White Blood Cell Count 11.22 k/cumm (4.4-10.8)
[2019-07-26 17:50] LABS: ALT 14 U/L (14-59); AST 12 U/L (15-37); Albumin 2.5 g/dL (3.4-5.0); Alkaline Phosphatase 131 U/L (46-116); Anion Gap 11.6 mmol/L (3-11); BUN 54 mg/dL (7-18); Bilirubin, Total 0.2 mg/dL (0.2-1.0); C-Reactive Protein 3.05 mg/dL (0.0-0.3); CO2 23.4 mmol/L (21.0-32.0); CREATININE 1.78 mg/dL (0.55-1.02); Calcium 8.6 mg/dL (8.5-10.1); Chloride 100 mmol/L (98-107); Estimated GFR 35.98 (mL/min/1.73m2); Glucose 362 mg/dL (74-106); Sodium 135 mmol/L (136-145); Total Protein 8.6 g/dL (6.4-8.2)
[2019-07-26 18:00] LABS: Platelet Count 532 x1000/uL (130-400)
== END 2019-07-26 16:18 ==
LOC: LBN 15:58
PROVIDERS: PCP Nurse Practitioner Family; Visit Provider Nurse Practitioner Family
DX: B37.7 Candidal sepsis (principal)
CPT/HCPCS: 80053; 85025; 86140

== ENCOUNTER 2019-08-02 22:24 | Outpatient (REF) | payer MEDICAID, SELFPAY ==
[2019-08-02 17:55] LABS: Abs Immature Grans 0.03 k/cumm (0.0-0.09); Absolute Basophil Count 0.11 k/cumm (0.0-0.2); Absolute Eosinophil Count 0.23 k/cumm (0.0-0.7); Absolute Lymphocyte Count 2.54 k/cumm (1.2-3.4); Absolute Monocyte Count 1.25 k/cumm (0.11-0.7); Absolute Neutrophil Count 6.44 k/cumm (1.2-6.7); Eosinophils % 2.2; HCT 30.1 % (36.0-46.0); Immature Grans % 0.3 %; Mean Corp. HGB Concentration 33.2 g/dL (32.0-36.0); Mean Corpuscular Hemoglobin 28.1 pg (27.0-33.0); Mean Corpuscular Volume 84.6 fL (80-95); Mean Platelet Volume 9.1 fL (8.0-11.0); Monocytes % 11.8; Neutrophils % 60.7; Platelet Count 545 x1000/uL (130-400); RBC 3.56 m/cumm (4.00-5.20); RBC Distribution Width 14.3 % (11.7-14.6)
[2019-08-02 18:10] LABS: ALT 17 U/L (14-59); AST 12 U/L (15-37); Alkaline Phosphatase 130 U/L (46-116); Anion Gap 10.2 mmol/L (3-11); BUN 64 mg/dL (7-18); Bilirubin, Total 0.3 mg/dL (0.2-1.0); CO2 22.8 mmol/L (21.0-32.0); CREATININE 1.54 mg/dL (0.55-1.02); Calcium 9.4 mg/dL (8.5-10.1); Chloride 103 mmol/L (98-107); Estimated GFR 42.52 (mL/min/1.73m2); Glucose 73 mg/dL (74-106); Potassium 4.1 mmol/L (3.5-5.1); Sodium 136 mmol/L (136-145); Total Protein 9.2 g/dL (6.4-8.2)
[2019-08-02 18:16] LABS: Diff Comment Diff Reviewed
[2019-08-02 18:58] LABS: C-Reactive Protein 1.18 mg/dL (0.0-0.3)
== END 2019-08-02 22:44 ==
LOC: LBN 22:24
PROVIDERS: PCP Nurse Practitioner Family; Visit Provider Pediatrics
DX: B37.7 Candidal sepsis (principal)
CPT/HCPCS: 80053; 85025; 86140

== ENCOUNTER 2019-08-04 11:31 | Outpatient (CLI) | payer MEDICAID, SELFPAY ==
--- NOTE | 2019-08-04 | DI.US_ITS ---
EXAM: US EXTREMITY VENOUS BI CLINICAL HISTORY: ACUTE DEEP VEIN THROMBOSIS PROXIMAL VEIN BOTH LOWER EXTREMITIES TECHNIQUE: Ultrasound performed using standard protocol. COMPARISON: US ECHOCARDIOGRAM from 07/04/2019 FINDINGS: Duplex evaluation of the deep venous system of both lower extremities was performed according to the usual protocol. There is no evidence of DVT in the right lower extremity venous system. On the left, there is visible thrombus in the proximal to mid femoral vein and also thrombus in poste rior tibial vein in the calf. The thrombus appears nonocclusive. IMPRESSION: Examination is positive for nonocclusive DVT in left femoral vein. No evidence of DVT in the right lower extremity. DATA REPOSITORY:
== END 2019-08-04 11:51 ==
PROVIDERS: PCP Nurse Practitioner Family; Visit Provider Pediatrics
DX: I82.412 Acute embolism and thrombosis of left femoral vein (principal); I82.442 Acute embolism and thrombosis of left tibial vein
CPT/HCPCS: 93970

== ENCOUNTER 2019-08-09 16:12 | Outpatient (REF) | payer MEDICAID, SELFPAY ==
[2019-08-09 16:39] LABS: ALT 19 U/L (14-59); AST 18 U/L (15-37); Alkaline Phosphatase 107 U/L (46-116); Anion Gap 8.8 mmol/L (3-11); BUN 44 mg/dL (7-18); Bilirubin, Total 0.3 mg/dL (0.2-1.0); CO2 23.2 mmol/L (21.0-32.0); CREATININE 1.53 mg/dL (0.55-1.02); Calcium 9.3 mg/dL (8.5-10.1); Chloride 106 mmol/L (98-107); Estimated GFR 42.84 (mL/min/1.73m2); Glucose 162 mg/dL (74-106); Potassium 4.6 mmol/L (3.5-5.1); Sodium 138 mmol/L (136-145)
[2019-08-09 16:56] LABS: HCT 30.7 % (36.0-46.0); HGB 10.3 g/dL (12.0-15.5); Mean Corp. HGB Concentration 33.6 g/dL (32.0-36.0); Mean Corpuscular Hemoglobin 28.4 pg (27.0-33.0); Mean Corpuscular Volume 84.6 fL (80-95); Mean Platelet Volume 9.1 fL (8.0-11.0); Platelet Count 547 x1000/uL (130-400); RBC 3.63 m/cumm (4.00-5.20); White Blood Cell Count 9.58 k/cumm (4.4-10.8)
[2019-08-10 14:03] LABS: C-Reactive Protein 0.53 mg/dL (0.0-0.3)
== END 2019-08-09 16:32 ==
LOC: LBN 16:12
PROVIDERS: PCP Nurse Practitioner Family; Visit Provider Pediatrics
DX: B37.7 Candidal sepsis (principal); I82.443 Acute embolism and thrombosis of tibial vein, bilateral; B49 Unspecified mycosis; Z79.2 Long term (current) use of antibiotics
CPT/HCPCS: 80053; 85027; 86140

== ENCOUNTER 2019-08-10 19:11 | Outpatient (REF) | payer MEDICAID, SELFPAY ==
[2019-08-12 09:45] LABS: C Difficile PCR Positive (Negative)
== END 2019-08-10 19:31 ==
LOC: LBN 19:11
PROVIDERS: PCP Nurse Practitioner Family; Visit Provider Nurse Practitioner Family
DX: R19.7 Diarrhea, unspecified (principal)
CPT/HCPCS: 87324; 87798

== ENCOUNTER 2019-08-16 14:58 | Outpatient (REF) | payer MEDICAID, SELFPAY ==
[2019-08-16 15:13] LABS: ALT 28 U/L (14-59); AST 29 U/L (15-37); Albumin 3.8 g/dL (3.4-5.0); Alkaline Phosphatase 122 U/L (46-116); Anion Gap 16.1 mmol/L (3-11); BUN 54 mg/dL (7-18); Bilirubin, Total 0.4 mg/dL (0.2-1.0); CO2 16.9 mmol/L (21.0-32.0); CREATININE 1.49 mg/dL (0.55-1.02); Chloride 101 mmol/L (98-107); Estimated GFR 44.18 (mL/min/1.73m2); Glucose 81 mg/dL (74-106); Potassium 5.3 mmol/L (3.5-5.1); Sodium 134 mmol/L (136-145); Total Protein 10.5 g/dL (6.4-8.2)
== END 2019-08-16 15:18 ==
LOC: LBN 14:58
PROVIDERS: PCP Nurse Practitioner Family; Visit Provider Pediatrics
DX: B37.7 Candidal sepsis (principal); I82.443 Acute embolism and thrombosis of tibial vein, bilateral
CPT/HCPCS: 80053

== ENCOUNTER 2019-08-23 14:28 | Outpatient (REF) | payer MEDICAID, SELFPAY ==
[2019-08-23 14:57] LABS: ALT 30 U/L (14-59); AST 30 U/L (15-37); Albumin 3.3 g/dL (3.4-5.0); Alkaline Phosphatase 116 U/L (46-116); Anion Gap 7.8 mmol/L (3-11); BUN 43 mg/dL (7-18); Bilirubin, Total 0.1 mg/dL (0.2-1.0); CO2 25.2 mmol/L (21.0-32.0); Calcium 9.8 mg/dL (8.5-10.1); Chloride 104 mmol/L (98-107); Estimated GFR 40.69 (mL/min/1.73m2); Glucose 149 mg/dL (74-106); Potassium 5.4 mmol/L (3.5-5.1); Sodium 137 mmol/L (136-145); Total Protein 9.1 g/dL (6.4-8.2)
== END 2019-08-23 14:48 ==
LOC: LBN 14:28
PROVIDERS: PCP Nurse Practitioner Family; Visit Provider Pediatrics
DX: B37.7 Candidal sepsis (principal)
CPT/HCPCS: 80053

== ENCOUNTER 2019-08-30 14:05 | Outpatient (REF) | payer MEDICAID, SELFPAY ==
[2019-08-30 15:06] LABS: ALT 28 U/L (14-59); AST 24 U/L (15-37); Albumin 3.2 g/dL (3.4-5.0); Alkaline Phosphatase 129 U/L (46-116); Anion Gap 10.3 mmol/L (3-11); BUN 54 mg/dL (7-18); Bilirubin, Total 0.2 mg/dL (0.2-1.0); CO2 20.7 mmol/L (21.0-32.0); CREATININE 1.95 mg/dL (0.55-1.02); Calcium 10.1 mg/dL (8.5-10.1); Chloride 102 mmol/L (98-107); Estimated GFR 32.38 (mL/min/1.73m2); Glucose 65 mg/dL (74-106); Potassium 4.7 mmol/L (3.5-5.1); Sodium 133 mmol/L (136-145); Total Protein 8.4 g/dL (6.4-8.2)
== END 2019-08-30 14:25 ==
LOC: LBN 14:05
PROVIDERS: PCP Nurse Practitioner Family; Visit Provider Pediatrics
DX: B37.7 Candidal sepsis (principal); E43 Unspecified severe protein-calorie malnutrition
CPT/HCPCS: 80053

== ENCOUNTER 2019-09-06 17:44 | Outpatient (REF) | payer MEDICAID, SELFPAY ==
[2019-09-06 19:25] LABS: HCT 27.9 % (36.0-46.0); HGB 9.5 g/dL (12.0-15.5); Mean Corp. HGB Concentration 34.1 g/dL (32.0-36.0); Mean Corpuscular Hemoglobin 28.9 pg (27.0-33.0); Mean Corpuscular Volume 84.8 fL (80-95); Mean Platelet Volume 9.3 fL (8.0-11.0); Platelet Count 505 x1000/uL (130-400); RBC 3.29 m/cumm (4.00-5.20); RBC Distribution Width 14.9 % (11.7-14.6); White Blood Cell Count 7.47 k/cumm (4.4-10.8)
[2019-09-06 19:39] LABS: Anion Gap 8.3 mmol/L (3-11); BUN 28 mg/dL (7-18); CO2 25.7 mmol/L (21.0-32.0); CREATININE 1.74 mg/dL (0.55-1.02); Calcium 10.2 mg/dL (8.5-10.1); Chloride 105 mmol/L (98-107); Estimated GFR 36.93 (mL/min/1.73m2); Glucose 127 mg/dL (74-106); Potassium 4.1 mmol/L (3.5-5.1); Sodium 139 mmol/L (136-145)
== END 2019-09-06 18:04 ==
LOC: NCHCN 17:44
PROVIDERS: PCP Nurse Practitioner Family; Visit Provider Pediatrics
DX: B37.7 Candidal sepsis (principal)
CPT/HCPCS: 80048; 85027

== ENCOUNTER 2019-10-01 02:50 | Outpatient (RCR) | payer MEDICAID, SELFPAY ==
[2019-09-17] MEDS: Normal Saline Flush 10 ML SYR IVP (13:22)
[2019-09-24] MEDS: Normal Saline Flush 10 ML SYR IVP (13:13)
== END 2019-10-03 23:59 | disposition home or self-care (01) ==
LOC: INF 02:50
PROVIDERS: PCP Nurse Practitioner Family; Visit Provider Internal Medicine
DX: G61.81 Chronic inflammatory demyelinating polyneuritis (principal)
CPT/HCPCS: 96365; J2930

== ENCOUNTER 2019-10-12 16:15 | Outpatient (REF) | payer MEDICAID, SELFPAY ==
[2019-10-12 15:27] LABS: HCT 31.3 % (36.0-46.0); HGB 10.4 g/dL (12.0-15.5); Mean Corp. HGB Concentration 33.2 g/dL (32.0-36.0); Mean Corpuscular Hemoglobin 29.4 pg (27.0-33.0); Mean Corpuscular Volume 88.4 fL (80-95); Platelet Count 443 x1000/uL (130-400); RBC 3.54 m/cumm (4.00-5.20); RBC Distribution Width 13.5 % (11.7-14.6); White Blood Cell Count 8.17 k/cumm (4.4-10.8)
[2019-10-12 16:19] LABS: ALT 23 U/L (14-59); AST 16 U/L (15-37); Albumin 4.9 g/dL (3.4-5.0); Alkaline Phosphatase 40 U/L (46-116); Anion Gap 10.8 mmol/L (3-11); BUN 11 mg/dL (7-18); Bilirubin, Total 0.2 mg/dL (0.2-1.0); CO2 23.2 mmol/L (21.0-32.0); CREATININE 1.29 mg/dL (0.55-1.02); Calcium 9.4 mg/dL (8.5-10.1); Chloride 112 mmol/L (98-107); Estimated GFR 52.17 (mL/min/1.73m2); Glucose 116 mg/dL (74-106); Magnesium 1.8 mg/dL (1.8-2.4); PHOSPHORUS 3.4 mg/dL (2.6-4.7); Potassium 4.2 mmol/L (3.5-5.1); Sodium 146 mmol/L (136-145); Total Protein 6.5 g/dL (6.4-8.2)
== END 2019-10-12 16:35 ==
LOC: LBN 16:15
PROVIDERS: PCP Nurse Practitioner Family; Visit Provider Physician Assistant
DX: E43 Unspecified severe protein-calorie malnutrition (principal); D63.1 Anemia in chronic kidney disease; I82.403 Acute embolism and thrombosis of unspecified deep veins of lower extremity, bilateral; N18.9 Chronic kidney disease, unspecified
CPT/HCPCS: 80053; 85027; 83735; 84100

== ENCOUNTER 2019-11-02 02:08 | Outpatient (RCR) | payer MEDICAID, SELFPAY ==
[2019-10-21] MEDS: Normal Saline Flush 10 ML SYR IVP (10:31)
[2019-10-26] MEDS: Normal Saline Flush 10 ML SYR IVP (13:15)
[2019-11-02] MEDS: Normal Saline Flush 10 ML SYR IVP (12:54)
== END 2019-11-02 23:59 | disposition home or self-care (01) ==
LOC: INF 02:08
PROVIDERS: PCP Nurse Practitioner Family; Visit Provider Nurse Practitioner Acute Care
DX: G90.8 Other disorders of autonomic nervous system (principal)
CPT/HCPCS: 96365; J2930

== ENCOUNTER 2019-11-08 16:10 | Outpatient (REF) | payer MEDICAID, SELFPAY ==
[2019-11-09 11:23] LABS: Campylobacter PCR Negative (Negative); Salmonella PCR Negative (Negative); Shiga Toxin PCR Negative (Negative); Shigella/Enteroinvasive Ecoli Negative (Negative)
== END 2019-11-08 16:30 ==
LOC: LBN 16:10
PROVIDERS: PCP Nurse Practitioner Family; Visit Provider Internal Medicine Gastroenterology
DX: K52.9 Noninfective gastroenteritis and colitis, unspecified (principal)
CPT/HCPCS: 87505; 87324

== ENCOUNTER 2019-11-09 02:12 | Outpatient (CLI) | payer MEDICAID, SELFPAY ==
[2019-11-09 13:04] LABS: Abs Immature Grans 0.01 k/cumm (0.0-0.09); Absolute Basophil Count 0.05 k/cumm (0.0-0.2); Absolute Eosinophil Count 0.27 k/cumm (0.0-0.7); Absolute Lymphocyte Count 2.22 k/cumm (1.2-3.4); Absolute Monocyte Count 0.62 k/cumm (0.11-0.7); Absolute Neutrophil Count 5.04 k/cumm (1.2-6.7); Basophils % 0.6; Eosinophils % 3.3; HCT 28.1 % (36.0-46.0); Immature Grans % 0.1 %; Mean Corpuscular Hemoglobin 29.5 pg (27.0-33.0); Mean Corpuscular Volume 92.1 fL (80-95); Mean Platelet Volume 9.5 fL (8.0-11.0); Monocytes % 7.6; Neutrophils % 61.4; Platelet Count 478 x1000/uL (130-400); RBC 3.05 m/cumm (4.00-5.20); RBC Distribution Width 13.6 % (11.7-14.6); Reticulocyte 2.1 % (0.5-2.4); White Blood Cell Count 8.21 k/cumm (4.4-10.8)
[2019-11-09 13:35] LABS: Iron 114 ug/dL (50-170); Total Iron Binding Capacity 220 ug/dL (250-450); Transferrin Sat 52 % (15-50)
[2019-11-09 13:54] LABS: ALT 58 U/L (14-59); AST 38 U/L (15-37); Albumin 3.7 g/dL (3.4-5.0); Alkaline Phosphatase 106 U/L (46-116); Anion Gap 7.8 mmol/L (3-11); BUN 20 mg/dL (7-18); Bilirubin, Total 0.2 mg/dL (0.2-1.0); CO2 27.2 mmol/L (21.0-32.0); CREATININE 1.04 mg/dL (0.55-1.02); Calcium 10.2 mg/dL (8.5-10.1); Chloride 107 mmol/L (98-107); Ferritin 356 ng/mL (8-252); Folate > 20.0 ng/mL (8.6-20.0); Glucose 210 mg/dL (74-106); Potassium 4.9 mmol/L (3.5-5.1); Sodium 142 mmol/L (136-145); Total Protein 6.7 g/dL (6.4-8.2); Vitamin B12 472 pg/mL (193-986)
[2019-11-09 14:07] LABS: LDH 193 U/L (81-234)
[2019-11-10 09:42] LABS: Haptoglobin 129 mg/dL (32-197)
[2019-11-10 19:49] LABS: Erythropoietin 7.3 mIU/mL (2.6 - 18.5)
== END 2019-11-09 02:32 ==
PROVIDERS: PCP Nurse Practitioner Family; Visit Provider Internal Medicine
DX: D64.9 Anemia, unspecified (principal)
CPT/HCPCS: 36415; 80053; 82668; 82607; 82728; 82746; 83010; 83540; 83550; 83615; 85025; 85045

== ENCOUNTER 2019-11-19 19:16 | Outpatient (REF) | payer MEDICAID, SELFPAY ==
[2019-11-19 22:11] LABS: Bilirubin Negative (Negative); Blood Negative (Negative); Clarity Sl Cloudy (Clear); Glucose Negative (Negative); Ketones Negative (Negative); Leukocyte Esterase Large (Negative); Nitrite Negative (Negative); Urobilinogen 0.2 EU/dL (Up TO 0.2)
[2019-11-19 22:25] LABS: Bacteria Moderate HPF (Negative); C & S Indicated? Yes; Casts Negative LPF (Negative); Crystals Negative HPF (Negative); Epithelial Cells Few HPF (Negative); Mucus Negative (Negative); RBC 0-2 HPF (0-2); WBC 20-50 HPF (0-5)
== END 2019-11-19 19:36 ==
LOC: NCHCN 19:16
PROVIDERS: PCP Nurse Practitioner Family; Visit Provider Nurse Practitioner Family
DX: N18.3 Chronic kidney disease, stage 3 (moderate) (principal)
CPT/HCPCS: 81003; 81015; 87086

== ENCOUNTER 2019-11-23 08:33 | Outpatient (REF) | payer MEDICAID, SELFPAY ==
[2019-11-23 14:24] LABS: Bilirubin Negative (Negative); Blood Moderate (Negative); Clarity Cloudy (Clear); Glucose Negative (Negative); Ketones Negative (Negative); Leukocyte Esterase Large (Negative); Nitrite Negative (Negative); Specific Gravity 1.025 (1.005-1.025); Urobilinogen 0.2 EU/dL (Up TO 0.2); pH 6.5 (5-8)
[2019-11-23 14:42] LABS: C & S Indicated? Yes; WBC >50 HPF (0-5)
== END 2019-11-23 08:53 ==
LOC: NCHCN 08:33
PROVIDERS: PCP Nurse Practitioner Family; Visit Provider Physician Assistant
DX: R82.81 Pyuria (principal)
CPT/HCPCS: 81003; 81015; 87086

== ENCOUNTER 2019-12-01 02:35 | Outpatient (RCR) | payer MEDICAID, SELFPAY ==
[2019-11-09] MEDS: Normal Saline Flush 10 ML SYR IVP (13:12)
[2019-11-15] MEDS: Acetaminophen 325 MG TAB 650 MG PO (10:37)
[2019-11-15] MEDS: diphenhydrAMINE 25 MG CAP PO (10:37)
[2019-11-15] MEDS: Normal Saline 1,000 ML 150 ML IV (10:55)
[2019-11-15] MEDS: IMMUNE GLOBULIN 20 GM/200 ML BTL IVPB (11:05)
[2019-11-15] MEDS: Normal Saline Flush 10 ML SYR IVP (11:06)
[2019-11-15 11:15] VITALS: BP 92/62; PULSE 101; RESP 18; TEMP 36; O2SAT 99
[2019-11-15 11:30] VITALS: BP 93/65; PULSE 98; RESP 20; TEMP 36.4; O2SAT 99
[2019-11-15 11:50] VITALS: BP 96/68; PULSE 94; RESP 18; TEMP 36.6; O2SAT 99
[2019-11-15 12:27] VITALS: BP 105/76; PULSE 96; RESP 12; TEMP 36.3; O2SAT 100
[2019-11-15 13:00] VITALS: BP 98/67; PULSE 99; RESP 18; TEMP 36.2; O2SAT 100
[2019-11-16] VITALS (7 sets, daily range): BP systolic 125–157; BP diastolic 86–112; PULSE 88–92; RESP 18–19; TEMP 36–36.4; O2SAT 99–100
[2019-11-16] MEDS: Normal Saline Flush 10 ML SYR IVP (10:29)
[2019-11-16] MEDS: Normal Saline 1,000 ML 150 ML IV (10:45)
[2019-11-16] MEDS: IMMUNE GLOBULIN 20 GM/200 ML BTL IVPB (11:12)
[2019-11-16] MEDS: Acetaminophen 325 MG TAB 650 MG PO (11:16)
[2019-11-16] MEDS: diphenhydrAMINE 25 MG CAP PO (11:16)
[2019-11-17 11:00] VITALS: BP 118/83; PULSE 99; RESP 18; TEMP 36.2; O2SAT 99
[2019-11-17] MEDS: Normal Saline 1,000 ML 150 ML IV (11:11)
[2019-11-17] MEDS: IMMUNE GLOBULIN 20 GM/200 ML BTL IVPB (11:13)
[2019-11-17] MEDS: Normal Saline Flush 10 ML SYR IVP (11:13)
[2019-11-17] MEDS: Acetaminophen 325 MG TAB 650 MG PO (11:16)
[2019-11-17] MEDS: diphenhydrAMINE 25 MG CAP PO (11:17)
[2019-11-17 11:19] VITALS: BP 116/79; PULSE 101; RESP 18; TEMP 36.2; O2SAT 99
[2019-11-17 11:34] VITALS: BP 118/79; PULSE 101; RESP 19; TEMP 36.2; O2SAT 100
[2019-11-17 11:56] VITALS: BP 118/84; PULSE 102; RESP 18; TEMP 36.6; O2SAT 98
[2019-11-17 12:19] VITALS: BP 113/79; PULSE 104; RESP 18; TEMP 36.6; O2SAT 99
[2019-11-17 12:50] VITALS: BP 123/82; PULSE 102; RESP 18; TEMP 36.7; O2SAT 100
[2019-11-18] VITALS (7 sets, daily range): BP systolic 120–146; BP diastolic 84–105; PULSE 98–102; RESP 17–18; TEMP 36.4–36.8; O2SAT 98–100
[2019-11-18] MEDS: IMMUNE GLOBULIN 20 GM/200 ML BTL IVPB (11:02)
[2019-11-18] MEDS: diphenhydrAMINE 25 MG CAP PO (11:02)
[2019-11-18] MEDS: Normal Saline 1,000 ML 150 ML IV (11:02)
[2019-11-18] MEDS: Acetaminophen 325 MG TAB 650 MG PO (11:02)
[2019-11-18] MEDS: Normal Saline Flush 10 ML SYR IVP (11:45)
[2019-11-19] VITALS (7 sets, daily range): BP systolic 83–97; BP diastolic 54–67; PULSE 92–105; RESP 17–19; TEMP 36.2–36.6; O2SAT 99–100
[2019-11-19] MEDS: diphenhydrAMINE 25 MG CAP PO (11:02)
[2019-11-19] MEDS: Acetaminophen 325 MG TAB 650 MG PO (11:02)
[2019-11-19] MEDS: Normal Saline 1,000 ML 150 ML IV (11:04)
[2019-11-19] MEDS: IMMUNE GLOBULIN 20 GM/200 ML BTL IVPB (11:08)
[2019-11-19] MEDS: Normal Saline Flush 10 ML SYR IVP (11:10)
[2019-11-23 13:10] VITALS: BP 105/75; PULSE 97
[2019-11-23] MEDS: Normal Saline Flush 10 ML SYR IVP (13:10)
[2019-12-01] MEDS: Normal Saline Flush 10 ML SYR IVP (13:10)
[2019-12-01 13:24] LABS: HCT 28.6 % (36.0-46.0); HGB 9.5 g/dL (11.2-15.7); MCH 30.2 pg (27.0-33.0); MCHC 33.2 % (32.0-36.0); MCV 90.8 fL (80-95); Platelet Count 352 10^3/uL (130-400); RBC 3.15 10^6/uL (3.93-5.22); RDW 13.3 % (11.7-14.6); RDW-SD 44.4 fL; WBC 8.27 10^3/uL (4.4-10.8)
[2019-12-01 13:55] LABS: ALT 30 U/L (14-59); AST 26 U/L (15-37); Albumin 3.2 g/dL (3.4-5.0); Alkaline Phosphatase 112 U/L (46-116); Anion Gap 10.5 mmol/L (3-11); BUN 23 mg/dL (7-18); Bilirubin, Total 0.1 mg/dL (0.2-1.0); CO2 19.5 mmol/L (21.0-32.0); CREATININE 1.24 mg/dL (0.55-1.02); Calcium 9.2 mg/dL (8.5-10.1); Chloride 110 mmol/L (98-107); Glucose 147 mg/dL (74-106); Potassium 4.3 mmol/L (3.5-5.1); Sodium 140 mmol/L (136-145); Total Protein 7.7 g/dL (6.4-8.2)
[2019-12-01 14:24] LABS: WBC >50 HPF (0-5)
[2019-12-01 14:25] LABS: C & S Indicated? Yes
== END 2019-12-03 23:59 | disposition home or self-care (01) ==
LOC: INF 02:35
PROVIDERS: Physician Assistant; PCP Nurse Practitioner Family; Visit Provider Internal Medicine
DX: R82.81 Pyuria (principal); G90.3 Multi-system degeneration of the autonomic nervous system; G61.81 Chronic inflammatory demyelinating polyneuritis
CPT/HCPCS: 36415; 80053; 85027; 96360; 96361; 96365; 96366; 96374; 81015; 87086; J1459; J2930

== ENCOUNTER 2019-12-16 22:10 | Outpatient (REF) | payer MEDICAID, SELFPAY ==
[2019-12-16 18:37] LABS: FREE T4 0.93 ng/dL (0.76-1.46); TSH 0.84 uIU/mL (0.36-3.74)
[2019-12-18 18:38] LABS: Tissue Transglutaminase Ab IgA <1.2 U/mL
== END 2019-12-16 22:30 ==
LOC: LBN 22:10
PROVIDERS: PCP Nurse Practitioner Family; Visit Provider Physician Assistant
DX: E10.8 Type 1 diabetes mellitus with unspecified complications (principal)
CPT/HCPCS: 83516; 84439; 84443

== ENCOUNTER 2019-12-28 17:31 | Outpatient (REF) | payer MEDICAID, SELFPAY | END 2019-12-28 17:51 | LOC: NCHCN 17:31 | PROVIDERS: PCP Nurse Practitioner Family; Visit Provider Nurse Practitioner Family | DX: R50.9 Fever, unspecified (principal) | CPT/HCPCS: 87086 ==

== ENCOUNTER 2019-12-30 04:08 | Outpatient (RCR) | payer MEDICAID, SELFPAY ==
[2019-12-06] MEDS: Acetaminophen 325 MG TAB 650 MG PO (11:27)
[2019-12-06] MEDS: diphenhydrAMINE 25 MG CAP PO (11:28)
[2019-12-06] MEDS: Normal Saline 1,000 ML 150 ML IV (11:29)
[2019-12-06 11:40] VITALS: BP 101/69; PULSE 105; RESP 17; TEMP 36.6; O2SAT 100
[2019-12-06] MEDS: IMMUNE GLOBULIN 5 GM/50 ML BTL IVPB (11:44)
[2019-12-06 11:47] VITALS: BP 99/69; PULSE 101; RESP 18; TEMP 36.6; O2SAT 100
[2019-12-06] MEDS: Normal Saline Flush 10 ML SYR IVP (11:51)
[2019-12-06 12:02] VITALS: BP 108/76; PULSE 100; RESP 18; TEMP 36.6; O2SAT 99
[2019-12-06 12:18] VITALS: BP 111/75; PULSE 101; RESP 18; TEMP 36.3; O2SAT 100
[2019-12-06] MEDS: IMMUNE GLOBULIN 20 GM/200 ML BTL IVPB (12:32)
[2019-12-06 12:48] VITALS: BP 112/77; PULSE 98; RESP 18; TEMP 36.3; O2SAT 100
[2019-12-06 13:18] VITALS: BP 107/74; PULSE 99; RESP 18; TEMP 36.4; O2SAT 100
[2019-12-07] MEDS: Normal Saline 1,000 ML 150 ML IV (10:38)
[2019-12-07] MEDS: IMMUNE GLOBULIN 20 GM/200 ML BTL IVPB (10:39)
[2019-12-07 10:40] VITALS: BP 104/74; PULSE 97; RESP 20; TEMP 36.5; O2SAT 100
[2019-12-07] MEDS: Normal Saline Flush 10 ML SYR IVP (10:40)
[2019-12-07] MEDS: diphenhydrAMINE 25 MG CAP PO (10:40)
[2019-12-07] MEDS: IMMUNE GLOBULIN 5 GM/50 ML BTL IVPB (10:40)
[2019-12-07] MEDS: Acetaminophen 325 MG TAB 650 MG PO (10:41)
[2019-12-07 11:00] VITALS: BP 105/79; PULSE 100; RESP 16; TEMP 36.9; O2SAT 100
[2019-12-07 11:30] VITALS: BP 115/82; PULSE 97; RESP 16; TEMP 36.9; O2SAT 100
[2019-12-07 12:02] VITALS: BP 115/82; PULSE 98; RESP 18; TEMP 36.6; O2SAT 100
[2019-12-07 12:32] VITALS: BP 129/89; PULSE 95; RESP 16; TEMP 35.5; O2SAT 100
[2019-12-07 12:55] VITALS: BP 125/81; PULSE 97; RESP 18; TEMP 36.1; O2SAT 99
[2019-12-29] MEDS: Acetaminophen 325 MG TAB 650 MG PO (11:19)
[2019-12-29] MEDS: Normal Saline Flush 10 ML SYR IVP (11:19)
[2019-12-29] MEDS: diphenhydrAMINE 25 MG CAP PO (11:19)
[2019-12-29] MEDS: Normal Saline 1,000 ML 150 ML IV (11:20)
[2019-12-29 11:22] VITALS: BP 100/70; PULSE 95; RESP 18; TEMP 36.5; O2SAT 100
[2019-12-29] MEDS: IMMUNE GLOBULIN 5 GM/50 ML BTL IVPB (11:22)
[2019-12-29 11:25] VITALS: BP 75/58; PULSE 94; RESP 18; TEMP 36.5; O2SAT 100
[2019-12-29 11:40] VITALS: BP 81/63; PULSE 92; RESP 17; TEMP 36.5; O2SAT 100
[2019-12-29] MEDS: IMMUNE GLOBULIN 20 GM/200 ML BTL 2.2 GM IVPB (12:01)
[2019-12-29 12:10] VITALS: BP 89/67; PULSE 90; RESP 18; TEMP 36.3; O2SAT 100
[2019-12-29 12:33] LABS: Hemoglobin A1C 6.9 % (3.8-5.6)
[2019-12-29 12:40] VITALS: BP 104/74; PULSE 89; RESP 19; TEMP 36.3; O2SAT 100
[2019-12-30] VITALS (7 sets, daily range): BP systolic 92–108; BP diastolic 62–74; PULSE 82–92; RESP 17–19; TEMP 36.5; O2SAT 99–100
[2019-12-30] MEDS: diphenhydrAMINE 25 MG CAP PO (11:24)
[2019-12-30] MEDS: Acetaminophen 325 MG TAB 650 MG PO (11:24)
[2019-12-30] MEDS: IMMUNE GLOBULIN 5 GM/50 ML BTL 0.55 GM IVPB (11:24)
[2019-12-30] MEDS: Normal Saline Flush 10 ML SYR IVP (11:24)
[2019-12-30] MEDS: Normal Saline 1,000 ML 150 ML IV (11:26)
[2019-12-30] MEDS: IMMUNE GLOBULIN 20 GM/200 ML BTL 2.2 GM IVPB (12:11)
== END 2020-01-03 23:59 | disposition home or self-care (01) ==
LOC: INF 04:08
PROVIDERS: PCP Nurse Practitioner Family; Visit Provider Internal Medicine
DX: E10.69 Type 1 diabetes mellitus with other specified complication (principal); G90.3 Multi-system degeneration of the autonomic nervous system; G90.8 Other disorders of autonomic nervous system
CPT/HCPCS: 96360; 96361; 96365; 96366; 83036; J1459; J2930

== ENCOUNTER 2020-01-01 20:07 | Emergency (ER) | payer MEDICAID, SELFPAY ==
[2020-01-01] VITALS (9 sets, daily range): BP systolic 92–122; BP diastolic 58–81; PULSE 86–109; RESP 10–17; TEMP 37.1; O2SAT 16–99
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
--- NOTE | 2020-01-01 20:30 | DI.CT_ITS ---
EXAM: CT ABDOMEN PELVIS W CLINICAL HISTORY: colonoscopy yesterday; fever and abd pain; ? perf TECHNIQUE: Imaging Protocol: Axial computed tomography images with coronal and sagittal reformatted images were created and reviewed CONTRAST MATERIAL: Intravenous: Omnipaque 350 Contrast volume:100 mL Oral: Yes COMPARISON: No exams were available for comparison FINDINGS: ABDOMEN: Lung Bases: Normal where visualized. Liver: Normal density. No measurable mass. Portal, Superior Mesenteric, and Splenic Veins: Unremarkable. Gallbladder and Biliary Tract: No radiodense calculus or dilation. Pancreas: Normal density, no abnormal calcifications or inflammatory process. Spleen: Normal. Adrenals: No masses seen. Kidneys: Normal size, contour and axis. There are two 4 mm nonobstructing stones in the lower pole of the left kidney. There is diffuse enhancement of the mejia of the collecting systems of the kidneys bilaterally. There is diffuse thickening and enhancement of the wall of the urinary bladder. Heter ogeneous right nephrogram. Tiny hypodensity seen in the kidneys. They are too small for further rusty racterization but likely reflect small cysts. 2 mm nonobstructing stone in the lower pole of the rig ht kidney. Abdominal Aorta: Abdominal portion non-dilated. Bowel: No obstruction or bowel wall thickening. No evidence of acute appendicitis. Prominence of the wall likely reflects lack of distension. No pericolonic inflammatory stranding is seen. Peritoneal Cavity: No ascites, collection or mesenteric inflammatory response. Lymph Nodes: Within normal limits. Bones: Unremarkable. Soft Tissues: Unremarkable. PELVIS: Bladder: Please see the kidney section above. Reproductive Organs: Unremarkable as visualized. Lymph Nodes: Within normal limits. Bones: Within normal limits. IMPRESSION: 1. Heterogeneous right nephrogram with enhancement of the uro epithelium. The findings are suspiciou s for an infectious or inflammatory process including pyelonephritis. 2. Severely thickened urinary bladder wall which may reflect an acute or chronic inflammatory or infe ctious cystitis or neurogenic bladder. 3. Bilateral nephrolithiasis. No obstructing stones. 4. No evidence of pneumoperitoneum. RADIATION DOSE DELIVERED: 646.67mGy.cm Total DLP DATA REPOSITORY: All CT scans at this facility are submitted to the National Radiology Data Registry (NRDR) Dose Index Registry (DIR) with the [employer] ([employer]). RADIATION OPTIMIZATION: All CT scans at this facility use at least one of these dose optimization te chniques: automated exposure control; mA and/or kV adjustment per patient size (includes targeted exa ms where dose is matched to clinical indication); or iterative reconstruction.
--- NOTE | 2020-01-01 20:30 | DI.RAD_ITS ---
EXAM: 2D digital imaging was performed. CLINICAL HISTORY: colonoscopy yesterday; fever and abd pain; ? perf. COMPARISON: No exams were available for comparison TECHNIQUE: Supine and upright abdomen and PA chest views were performed. FINDINGS: BOWEL GAS PATTERN: Nonobstructive. Mildly distended loops of small bowel in the left mid abdomen. T hese are nonspecific.No free air. CALCIFICATIONS: 2 calcifications are seen projected over the lower pole left renal shadow suspicious for nephrolithiasis. OSSEOUS STRUCTURES: Normal for age. OTHER FINDINGS: None. LUNGS Clear. No pleural abnormality seen. HEART: Normal. MEDIASTINUM: Normal. OTHER FINDINGS: None. IMPRESSION: 1. Nonobstructive bowel gas pattern. 2. Left nephrolithiasis. 3. No free air. DATA REPOSITORY: RADIATION DOSE DELIVERED:
[2020-01-01] MEDS: Prochlorperazine 10 MG/2 ML VIAL 5 MG IVP (21:19)
[2020-01-01] MEDS: MORPHine 10 MG/ML VIAL 2 MG IVP (21:19)
[2020-01-01 21:31] LABS: Abs Immature Grans 0.05 10^3/uL (0.0-0.06); Absolute Eosinophil Count 0.03 10^3/uL (0.0-0.7); Absolute Lymphocyte Count 0.92 10^3/uL (1.2-3.4); Absolute Monocyte Count 1.27 10^3/uL (0.1-0.8); Basophils % 0.5; Eosinophils % 0.2; HCT 28.2 % (36.0-46.0); HGB 9.5 g/dL (11.2-15.7); Immature Grans % 0.3; Lymphocytes % 6.3; MCH 29.4 pg (27.0-33.0); MCHC 33.7 % (32.0-36.0); MCV 87.3 fL (80-95); MPV 10.2 fL (8.0-11.0); Monocytes % 8.7; Nucleated RBC 0 %; Platelet Count 370 10^3/uL (130-400); RBC 3.23 10^6/uL (3.93-5.22); RDW 11.7 % (11.7-14.6); RDW-SD 37.6 fL; WBC 14.55 10^3/uL (4.4-10.8)
[2020-01-01 21:32] LABS: Lactate 1.1 mmol/L (0.6-1.4)
[2020-01-01 21:38] LABS: Absolute Basophil Count 0.07 10^3/uL (0.0-0.2); Absolute Neutrophil Count 12.22 10^3/uL (1.2-6.7)
[2020-01-01 21:51] LABS: ALT 22 U/L (14-59); AST 19 U/L (15-37); Alkaline Phosphatase 102 U/L (46-116); BUN 25 mg/dL (7-18); Bilirubin, Total 0.1 mg/dL (0.2-1.0); Calcium 9.7 mg/dL (8.5-10.1); Chloride 102 mmol/L (98-107); Estimated GFR 37.94 (mL/min/1.73m2); Glucose 166 mg/dL (74-106); Lipase 233 U/L (73-393); Sodium 134 mmol/L (136-145); Total Protein 8.7 g/dL (6.4-8.2)
--- NOTE | 2020-01-01 21:56 | DI.VRAD_ITS ---
PROCEDURE INFORMATION: Exam: XR Complete Acute Abdomen Series Exam date and time: 01/01/2020 21:32 Age: 19 years old Clinical indication: Abdominal pain; Patient HX: Colonoscopy yesterday, fever and abd pain; ; Additional info: ? Perf TECHNIQUE: Imaging protocol: XR complete acute abdomen series, including 2 or more views of the abdomen and a single view chest. COMPARISON: CR XR PORTABLE CHEST AP 07/02/2019 08:57 FINDINGS: Lungs: No consolidation. Pleural space: No pneumothorax. Heart/Mediastinum: No cardiomegaly. Gastrointestinal tract: Mildly distended loops of small bowel in the left mid abdomen. Intraperitoneal space: No pneumoperitoneum. Organs: Suspected left nephrolithiasis. Bones/joints: No acute fracture. Soft tissues: No suspicious lesions. IMPRESSION: 1. No pneumoperitoneum. 2. Mildly distended loops of small bowel in the left mid abdomen. 3. Suspected left nephrolithiasis. Dictated and Authenticated by: Lizabeth Buck MD. Ordering:JAMES Whitman MD
[2020-01-01 22:57] LABS: Bilirubin Negative (Negative); Blood Moderate (Negative); Clarity Sl Cloudy (Clear); Glucose Negative (Negative); Ketones Negative (Negative); Leukocyte Esterase Large (Negative); Nitrite Negative (Negative); Urobilinogen 0.2 EU/dL (Up TO 0.2)
[2020-01-01 23:02] LABS: C & S Indicated? Yes; WBC >50 HPF (0-5)
[2020-01-01] MEDS: Lactated Ringers 1,000 ML 1000 ML IV (23:03)
[2020-01-01 23:05] LABS: BE (Venous) -13 mmol/L (-2-3); HCO3 (Venous) 14 mmol/L (23-28); O2 Sat (Venous) 84 %; TCO2 (Venous) 14 mmol/L (24-29); pCO2 (Venous) 34 mmHg (41-51); pH (Venous) 7.23 (7.31-7.41); pO2 (Venous) 51 mmHg
[2020-01-01] MEDS: Omnipaque 350 MG/ML 100 ML BTL IJ (23:10)
[2020-01-01] MEDS: Normal Saline - Diluent 50 ML VIAL IV (23:11)
--- NOTE | 2020-01-02 00:06 | DI.VRAD_ITS ---
PROCEDURE INFORMATION: Exam: CT Abdomen And Pelvis With Contrast Exam date and time: 01/01/2020 20:38 Age: 19 years old Clinical indication: Abdominal pain; Generalized; Patient HX: Colonoscopy yesterday; Fever and abd pain; Additional info: ? Perf TECHNIQUE: Imaging protocol: Computed tomography of the abdomen and pelvis with intravenous contrast. Other contrast: Oral; COMPARISON: CR XR ABD FLAT UPRIGHT PA CHEST 01/01/2020 21:32 FINDINGS: Liver: No mass. Gallbladder and bile ducts: No calcified stones. No ductal dilation. Pancreas: No ductal dilation. No masses. Spleen: No splenomegaly or focal lesions. Adrenals: No mass. Kidneys and ureters: Moderate bilateral hydronephrosis. Prominent enhancement of the ureteral, renal pelvic and some of the calyceal epithelium bilaterally. Right greater than left. Bilateral renal stones with no obstructing stones. No renal masses. Mildly heterogeneous right nephrogram. Stomach and bowel: Narrowing of the duodenum across the midline, with moderate proximal dilation to 35 mm. However enteric contrast progresses distally. No evidence of duodenal inflammation. Mild wall thickening in the majority of the colon, some sparing of the right colon. No focal pathology in the small bowel. Appendix: No evidence of appendicitis. Intraperitoneal space: No free air. No significant fluid collection. Vasculature: No abdominal aortic aneurysm. Lymph nodes: No significantly enlarged lymph nodes. Bladder: Severely thick walled urinary bladder. Hyperemic appearance of the mucosa. Mostly decompressed. Reproductive: Unremarkable as visualized. Bones/joints: No acute fracture or subluxation. Soft tissues: No suspicious lesions. IMPRESSION: 1. Severely thick walled urinary bladder as described. Consider acute or chronic cystitis, neurogenic bladder also possible. 2. Moderate bilateral hydronephrosis, probably relating to the bladder disease, consider reflux. 3. Prominent enhancement of the uro epithelium. Could reflect chronic obstruction, inflammation or infection. 4. Bilateral renal stones with no obstructing stones. 5. Mildly heterogeneous right nephrogram. A mild right pyelonephritis is possible. Alternatively could be a sequela of the collecting system pathology. 6. Mild thickening in the majority of the colon suggesting a mild generalized colitis. 7. Additional findings as described. Dictated and Authenticated by: Lizabeth Buck MD. Ordering:JAMES Whitman MD
[2020-01-02 01:30] VITALS: BP 121/83; PULSE 82; RESP 10; O2SAT 99
[2020-01-02 01:59] LABS: BE (Venous) -12 mmol/L (-2-3); HCO3 (Venous) 16 mmol/L (23-28); O2 Sat (Venous) 92 %; TCO2 (Venous) 15 mmol/L (24-29); pCO2 (Venous) 37 mmHg (41-51); pH (Venous) 7.24 (7.31-7.41); pO2 (Venous) 65 mmHg
[2020-01-02 02:00] VITALS: BP 106/75; PULSE 76; RESP 8; O2SAT 99
[2020-01-02 02:16] LABS: Anion Gap 13.7 mmol/L (3-11); BUN 21 mg/dL (7-18); CO2 17.3 mmol/L (21.0-32.0); CREATININE 1.44 mg/dL (0.55-1.02); Chloride 104 mmol/L (98-107); Estimated GFR 45.95 (mL/min/1.73m2); Glucose 108 mg/dL (74-106); Potassium 3.5 mmol/L (3.5-5.1); Sodium 135 mmol/L (136-145)
[2020-01-02 03:32] VITALS: BP 115/80; BP 69/41; BP 98/68; PULSE 90; PULSE 95; PULSE 99
[2020-01-02] MEDS: Prochlorperazine 5 MG TAB PO (03:35)
== END 2020-01-02 03:35 | disposition home or self-care (01) ==
PROVIDERS: Emergency Provider Emergency Medicine; PCP Nurse Practitioner Family
DX: E87.2 Acidosis (principal); K52.9 Noninfective gastroenteritis and colitis, unspecified; K59.2 Neurogenic bowel, not elsewhere classified; N13.39 Other hydronephrosis; R50.9 Fever, unspecified; R11.2 Nausea with vomiting, unspecified; E11.10 Type 2 diabetes mellitus with ketoacidosis without coma
CPT/HCPCS: 36415; 51701; 80048; 80053; 81025; 82805; 83690; 96361; 96374; 96375; 99285; 74022; 74177; 81003; 81015; 83605; 85025; 87086; J0780; J2270; J3490

== ENCOUNTER 2020-01-12 16:25 | Outpatient (REF) | payer MEDICAID, SELFPAY ==
[2020-01-12 20:22] LABS: HCT 32.7 % (36.0-46.0); HGB 10.5 g/dL (11.2-15.7); MCH 29.3 pg (27.0-33.0); MCHC 32.1 % (32.0-36.0); MCV 91.3 fL (80-95); MPV 11.3 fL (8.0-11.0); Platelet Count 500 10^3/uL (130-400); RBC 3.58 10^6/uL (3.93-5.22); RDW 11.8 % (11.7-14.6); RDW-SD 39.5 fL; WBC 8.37 10^3/uL (4.4-10.8)
[2020-01-12 20:35] LABS: Anion Gap 10.3 mmol/L (3-11); BUN 23 mg/dL (7-18); CO2 20.7 mmol/L (21.0-32.0); CREATININE 1.68 mg/dL (0.55-1.02); Calcium 9.3 mg/dL (8.5-10.1); Chloride 106 mmol/L (98-107); Estimated GFR 38.46 (mL/min/1.73m2); Glucose 211 mg/dL (74-106); Potassium 4.7 mmol/L (3.5-5.1); Sodium 137 mmol/L (136-145)
== END 2020-01-12 16:45 ==
LOC: NCHCN 16:25
PROVIDERS: PCP Nurse Practitioner Family; Visit Provider Physician Assistant
DX: D53.9 Nutritional anemia, unspecified (principal); E10.8 Type 1 diabetes mellitus with unspecified complications
CPT/HCPCS: 80048; 85027

== ENCOUNTER 2020-02-02 03:41 | Outpatient (RCR) | payer MEDICAID, SELFPAY ==
[2020-01-12] MEDS: Normal Saline Flush 10 ML SYR IVP (12:14)
[2020-01-19] MEDS: Normal Saline 1,000 ML 150 ML IV (11:15)
[2020-01-19] MEDS: Normal Saline Flush 10 ML SYR IVP (11:16)
[2020-01-19] MEDS: Acetaminophen 325 MG TAB 650 MG PO (11:19)
[2020-01-19] MEDS: diphenhydrAMINE 25 MG CAP PO (11:20)
[2020-01-19 11:28] VITALS: BP 122/87; PULSE 85; RESP 18; TEMP 36.3; O2SAT 99
[2020-01-19] MEDS: IMMUNE GLOBULIN 5 GM/50 ML BTL IVPB (11:43)
[2020-01-19 11:48] VITALS: BP 128/89; PULSE 81; RESP 17; TEMP 36.3; O2SAT 99
[2020-01-19 12:03] VITALS: BP 137/94; PULSE 79; RESP 18; TEMP 36.3; O2SAT 100
[2020-01-19] MEDS: IMMUNE GLOBULIN 20 GM/200 ML BTL IVPB (12:24)
[2020-01-19 12:33] VITALS: BP 146/96; PULSE 83; RESP 18; TEMP 36.3; O2SAT 100
[2020-01-19 13:03] VITALS: BP 152/105; PULSE 82; RESP 18; TEMP 36.3; O2SAT 100
[2020-01-19 13:33] VITALS: BP 151/105; PULSE 73; RESP 18; TEMP 36; O2SAT 99
[2020-01-20] VITALS (7 sets, daily range): BP systolic 145–160; BP diastolic 102–116; PULSE 82–99; RESP 17–18; TEMP 36–36.5; O2SAT 99–100
[2020-01-20] MEDS: Normal Saline 1,000 ML 150 ML IV (10:20)
[2020-01-20] MEDS: diphenhydrAMINE 25 MG CAP PO (10:40)
[2020-01-20] MEDS: Acetaminophen 325 MG TAB 650 MG PO (10:41)
[2020-01-20] MEDS: IMMUNE GLOBULIN 5 GM/50 ML BTL IVPB (10:55)
[2020-01-20] MEDS: IMMUNE GLOBULIN 20 GM/200 ML BTL IVPB (11:30)
[2020-01-26] MEDS: Normal Saline Flush 10 ML SYR IVP (13:30)
[2020-02-02] MEDS: Normal Saline Flush 10 ML SYR IVP (13:17)
== END 2020-02-02 23:59 | disposition home or self-care (01) ==
LOC: INF 03:41
PROVIDERS: PCP Nurse Practitioner Family; Visit Provider Nurse Practitioner Family
DX: G90.9 Disorder of the autonomic nervous system, unspecified (principal); G90.3 Multi-system degeneration of the autonomic nervous system
CPT/HCPCS: 96365; 96366; J1459; J2930

== ENCOUNTER 2020-03-01 02:53 | Outpatient (RCR) | payer MEDICAID, SELFPAY ==
[2020-02-09 10:58] VITALS: BP 105/72; PULSE 100; RESP 18; TEMP 36.5; O2SAT 100
[2020-02-09] MEDS: Normal Saline 1,000 ML 150 ML IV (11:15)
[2020-02-09] MEDS: Normal Saline Flush 10 ML SYR IVP (11:22)
[2020-02-09] MEDS: IMMUNE GLOBULIN 5 GM/50 ML BTL IVPB (11:22)
[2020-02-09] MEDS: Acetaminophen 325 MG TAB 650 MG PO (11:22)
[2020-02-09] MEDS: diphenhydrAMINE 25 MG CAP PO (11:23)
[2020-02-09 11:28] VITALS: BP 96/67; PULSE 97; RESP 17; TEMP 36.3; O2SAT 100
[2020-02-09 11:43] VITALS: BP 102/84; PULSE 94; RESP 18; TEMP 36.3; O2SAT 100
[2020-02-09] MEDS: IMMUNE GLOBULIN 20 GM/200 ML BTL IVPB (12:04)
[2020-02-09 12:13] VITALS: BP 116/84; PULSE 94; RESP 18; TEMP 36.3; O2SAT 99
[2020-02-09 12:43] VITALS: BP 122/85; PULSE 93; RESP 18; TEMP 36; O2SAT 100
[2020-02-09 13:19] VITALS: BP 132/94; PULSE 92; RESP 17; TEMP 36; O2SAT 100
[2020-02-10 11:19] VITALS: BP 123/86; PULSE 88; RESP 18; TEMP 36.5; O2SAT 100
[2020-02-10] MEDS: Acetaminophen 325 MG TAB 650 MG PO (11:24)
[2020-02-10] MEDS: Normal Saline Flush 10 ML SYR IVP (11:24)
[2020-02-10] MEDS: diphenhydrAMINE 25 MG CAP PO (11:24)
[2020-02-10] MEDS: Normal Saline 1,000 ML 150 ML IV (11:25)
[2020-02-10] MEDS: IMMUNE GLOBULIN 5 GM/50 ML BTL IVPB (11:26)
[2020-02-10 11:30] VITALS: PULSE 87; RESP 18; TEMP 36.5; O2SAT 100
[2020-02-10 11:45] VITALS: BP 136/98; PULSE 85; RESP 17; TEMP 36.5; O2SAT 99
[2020-02-10 12:00] VITALS: BP 138/96; PULSE 90; RESP 17; TEMP 36.5; O2SAT 99
[2020-02-10] MEDS: IMMUNE GLOBULIN 20 GM/200 ML BTL IVPB (12:00)
[2020-02-10 12:45] VITALS: BP 144/100; PULSE 87; RESP 18; TEMP 36.6; O2SAT 99
[2020-02-10 13:00] VITALS: BP 150/109; PULSE 90; RESP 18; TEMP 36.5; O2SAT 99
[2020-02-17] MEDS: Normal Saline Flush 10 ML SYR IVP (12:49)
[2020-02-23] MEDS: Normal Saline Flush 10 ML SYR IVP (13:01)
[2020-03-01] MEDS: Normal Saline Flush 10 ML SYR IVP (13:13)
== END 2020-03-04 23:59 | disposition home or self-care (01) ==
LOC: INF 02:53
PROVIDERS: PCP Nurse Practitioner Family; Visit Provider Nurse Practitioner Family
DX: G90.3 Multi-system degeneration of the autonomic nervous system (principal); G90.9 Disorder of the autonomic nervous system, unspecified
CPT/HCPCS: 96360; 96361; 96365; 96366; J1459; J2930

== ENCOUNTER 2020-03-03 11:56 | Outpatient (REF) | payer MEDICAID, SELFPAY ==
[2020-03-03 20:26] LABS: ALT 42 U/L (14-59); AST 21 U/L (15-37); Albumin 3.5 g/dL (3.4-5.0); Alkaline Phosphatase 176 U/L (46-116); Anion Gap 13.8 mmol/L (3-11); BUN 34 mg/dL (7-18); Bilirubin, Total 0.1 mg/dL (0.2-1.0); CO2 16.2 mmol/L (21.0-32.0); CREATININE 1.75 mg/dL (0.55-1.02); Calcium 9.1 mg/dL (8.5-10.1); Calculated LDL 141 mg/dL (<100); Chloride 111 mmol/L (98-107); Cholesterol 250 mg/dL (<200); Estimated GFR 36.69 (mL/min/1.73m2); Glucose 123 mg/dL (74-106); HDL Cholesterol 79 mg/dL (40-60); Potassium 4.1 mmol/L (3.5-5.1); Sodium 141 mmol/L (136-145); Total Protein 7.4 g/dL (6.4-8.2); Triglyceride 153 mg/dL (<150)
== END 2020-03-03 12:16 ==
LOC: NCHCN 11:56
PROVIDERS: PCP Nurse Practitioner Family; Visit Provider Physician Assistant
DX: E10.8 Type 1 diabetes mellitus with unspecified complications (principal); N18.30 Chronic kidney disease, stage 3 unspecified; I95.1 Orthostatic hypotension
CPT/HCPCS: 80053; 80061; 82533; 85027; 83036

== ENCOUNTER 2020-03-31 05:19 | Outpatient (RCR) | payer MEDICAID, SELFPAY ==
[2020-03-08] MEDS: Normal Saline Flush 10 ML SYR IVP (13:20)
[2020-03-16] MEDS: Normal Saline Flush 10 ML SYR IVP (12:12)
[2020-03-23] MEDS: Normal Saline Flush 10 ML SYR IVP (13:22)
[2020-03-31] MEDS: Normal Saline Flush 10 ML SYR IVP (12:59)
== END 2020-04-03 23:59 | disposition home or self-care (01) ==
LOC: INF 05:19
PROVIDERS: PCP Nurse Practitioner Family; Visit Provider Nurse Practitioner Family
DX: G90.3 Multi-system degeneration of the autonomic nervous system
CPT/HCPCS: 96365; J2930

== ENCOUNTER 2020-04-13 04:24 | Outpatient (RCR) | payer MEDICAID, SELFPAY ==
[2020-04-05] MEDS: Normal Saline Flush 10 ML SYR IVP (13:10)
[2020-04-13] MEDS: Normal Saline Flush 10 ML SYR IVP (13:22)
[2020-04-13 13:38] LABS: HCT 31.6 % (36.0-46.0); HGB 10.4 g/dL (11.2-15.7); MCH 29.7 pg (27.0-33.0); MCHC 32.9 % (32.0-36.0); MCV 90.3 fL (80-95); MPV 9.7 fL (8.0-11.0); Platelet Count 458 10^3/uL (130-400); RDW 14.1 % (11.7-14.6); RDW-SD 46.3 fL; WBC 8.99 10^3/uL (4.4-10.8)
[2020-04-13 13:45] LABS: Anion Gap 12.5 mmol/L (3-11); BUN 31 mg/dL (7-18); CO2 15.5 mmol/L (21.0-32.0); CREATININE 1.76 mg/dL (0.55-1.02); Calcium 9.3 mg/dL (8.5-10.1); Chloride 109 mmol/L (98-107); Estimated GFR 36.11 (mL/min/1.73m2); Glucose 219 mg/dL (74-106); Potassium 4.7 mmol/L (3.5-5.1); Sodium 137 mmol/L (136-145)
[2020-04-13 14:42] LABS: Vitamin D 25 Total 14.2 ng/ml (30-100)
[2020-04-13 15:33] LABS: COMMENT (LAB VIEW ONLY) 53.05 mg/dL
[2020-04-13 15:35] LABS: Microalb ug/mg Crea 657.1 ug/mg Cr
== END 2020-05-04 23:59 | disposition home or self-care (01) ==
LOC: INF 04:24
PROVIDERS: Internal Medicine; Physician Assistant; PCP Nurse Practitioner Family; Visit Provider Nurse Practitioner Family
DX: E10.65 Type 1 diabetes mellitus with hyperglycemia (principal); N18.30 Chronic kidney disease, stage 3 unspecified; D53.9 Nutritional anemia, unspecified; G90.3 Multi-system degeneration of the autonomic nervous system; E10.22 Type 1 diabetes mellitus with diabetic chronic kidney disease
CPT/HCPCS: 36415; 80048; 82306; 85027; 96365; 82043; 82570; 83036; J2930

== ENCOUNTER 2020-05-03 01:13 | Outpatient (CLI) | payer MEDICAID, SELFPAY ==
--- NOTE | 2020-05-03 07:45 | DI.US_ITS ---
EXAM: US PELVIS CLINICAL HISTORY: Amenorrhea for 2 years,N91,2 TECHNIQUE: Ultrasound performed using standard protocol. COMPARISON: US US EXTREMITY VENOUS BI from 08/04/2019 FINDINGS: Pelvic ultrasound was performed transabdominally only at the patient's request. Uterus measures 5.0 x 2.2 x 4.2 cm with a 9 millimeter unremarkable appearing endometrial stripe. The right ovary is non visualized, left ovary is poorly seen but grossly unremarkable. No free fluid is identified in the c ul-de-sac. Urinary bladder wall appears thickened, the patient reportedly has history of recurrent cystitis. IMPRESSION: Grossly normal pelvic ultrasound by transabdominal criteria. Urinary bladder wall thickening consistent with recurrent or chronic cystitis. DATA REPOSITORY:
== END 2020-05-03 01:33 ==
PROVIDERS: PCP Physician Assistant; Visit Provider Nurse Practitioner Women's Health
DX: N91.2 Amenorrhea, unspecified (principal); N32.89 Other specified disorders of bladder
CPT/HCPCS: 36415; 76856; 82670; 82679; 83001; 84146

== ENCOUNTER 2020-06-02 21:34 | Inpatient (IN) | payer MEDICAID, SELFPAY ==
[2020-06-02 21:40] VITALS: BP 85/50; PULSE 100; RESP 16; TEMP 36.6; O2SAT 100
[2020-06-02 22:20] LABS: Bilirubin Negative (Negative); Blood Moderate (Negative); Clarity Turbid (Clear); Glucose Negative (Negative); Ketones Negative (Negative); Leukocyte Esterase Large (Negative); Nitrite Negative (Negative); Urobilinogen 0.2 EU/dL (Up TO 0.2)
[2020-06-02 22:32] LABS: C & S Indicated? Yes; WBC >50 HPF (0-5)
[2020-06-02 22:45] LABS: HCT 27.2 % (36.0-46.0); HGB 9.3 g/dL (11.2-15.7); MCH 31.4 pg (27.0-33.0); MCHC 34.2 % (32.0-36.0); MCV 91.9 fL (80-95); MPV 10.1 fL (8.0-11.0); Nucleated RBC 0 %; Platelet Count 275 10^3/uL (130-400); RBC 2.96 10^6/uL (3.93-5.22); RDW 12.4 % (11.7-14.6); RDW-SD 41.5 fL
[2020-06-02 22:50] VITALS: TEMP 37.2
[2020-06-02 22:50] LABS: WBC 36.98 10^3/uL (4.4-10.8)
[2020-06-02] MEDS: Ondansetron 4 MG/2 ML VIAL IVP (22:50)
[2020-06-02] MEDS: Normal Saline 1,000 ML 1000 ML IV ×2 (22:50→23:44)
[2020-06-02 23:00] LABS: ALT 29 U/L (14-59); AST 16 U/L (15-37); Albumin 2.8 g/dL (3.4-5.0); Alkaline Phosphatase 109 U/L (46-116); Anion Gap 12.7 mmol/L (3-11); BUN 38 mg/dL (7-18); Bilirubin, Total 0.5 mg/dL (0.2-1.0); CO2 16.3 mmol/L (21.0-32.0); CREATININE 2.8 mg/dL (0.55-1.02); Calcium 8.4 mg/dL (8.5-10.1); Chloride 99 mmol/L (98-107); Estimated GFR 21.13 (mL/min/1.73m2); Glucose 276 mg/dL (74-106); Lipase 79 U/L (73-393); Potassium 4.5 mmol/L (3.5-5.1); Sodium 128 mmol/L (136-145); Total Protein 6.6 g/dL (6.4-8.2)
[2020-06-02 23:03] LABS: Absolute Lymphocyte Count 0.74 10^3/uL (1.2-3.4); Absolute Monocyte Count 2.22 10^3/uL (0.1-0.8); Absolute Neutrophil Count 33.65 10^3/uL (1.2-6.7); Bands % 15; Myelocytes % 1
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
[2020-06-02 23:04] LABS: Diff Comment Manual Differential; RBC Morphology Normal
[2020-06-02 23:08] LABS: Lactate 1.7 mmol/L (0.6-1.4)
[2020-06-02] MEDS: CEFEPIME 2 GM in Normal Saline 100 ML IVPB (23:15)
[2020-06-02 23:21] VITALS: BP 99/63; PULSE 91; RESP 15; O2SAT 100
--- NOTE | 2020-06-02 23:57 | DI.CT_ITS ---
EXAM: CT RENAL COLIC WO CLINICAL HISTORY: pain, 36 wbc, hx of stone. TECHNIQUE: Imaging Protocol: Axial computed tomography images with coronal and sagittal reformatted images were created and reviewed. CONTRAST MATERIAL: Noncontrast COMPARISON: CT CT ABDOMEN PELVIS W from 01/01/2020 FINDINGS: ABDOMEN: Lung Bases: Normal where visualized. Liver: Normal attenuation. No measurable mass. Gallbladder and biliary tract: No radiodense calculus or dilation. Pancreas: Normal density, no calcifications or inflammatory process. Spleen: Normal. Kidneys: Normal contour and axis. Mild right renal enlargement. Bilateral nonobstructing renal rose mary culi. Bilateral perinephric stranding, right greater than left. Stable appearance of prominent righ t upper pole calyces. Urothelial thickening. This was seen on the previous exam. No abscess. No m asses seen. Adrenal glands: No masses seen. Abdominal Aorta: Abdominal portion non-dilated. PELVIS: Bladder: Diffuse bladder wall thickening somewhat improved when compared with the previous exam.. No bladder calculi. Bowel: Normal appendix. No obstruction or bowel wall thickening. Lymph nodes: Multiple mildly enlarged para-aortic lymph nodes, likely reactive. Reproductive: Unremarkable. Bones: Within normal limits. IMPRESSION: Bilateral nephrolithiasis. No hydronephrosis. Mildly enlarged right kidney with perinephric strandi ng which could be secondary to pyelonephritis. Bladder wall thickening could represent cystitis vers us neurogenic bladder. RADIATION DOSE DELIVERED: 817.52mGy.cm Total DLP DATA REPOSITORY: All CT scans at this facility are submitted to the National Radiology Data Registry (NRDR) Dose Index Registry (DIR) with the [employer] (A[employer]). RADIATION OPTIMIZATION: All CT scans at this facility use at least one of these dose optimization te chniques: automated exposure control; mA and/or kV adjustment per patient size (includes targeted exa ms where dose is matched to clinical indication); or iterative reconstruction.
[2020-06-03] VITALS (40 sets, daily range): BP systolic 91–138; BP diastolic 60–97; PULSE 83–129; RESP 13–25; TEMP 36.5–39.4; O2SAT 94–100
--- NOTE | 2020-06-03 00:47 | DI.VRAD_ITS ---
PROCEDURE INFORMATION: Exam: CT Abdomen And Pelvis Without Contrast Exam date and time: 06/02/2020 11:04 PM Age: 20 years old Clinical indication: Other: 36 wbc; Abdominal pain; Generalized TECHNIQUE: Imaging protocol: Computed tomography of the abdomen and pelvis without contrast. Radiation optimization: All CT scans at this facility use at least one of these dose optimization techniques: automated exposure control; mA and/or kV adjustment per patient size (includes targeted exams where dose is matched to clinical indication); or iterative reconstruction. COMPARISON: CT ABDOMEN PELVIS W 01/01/2020 11:19 PM FINDINGS: Liver: The liver is within normal limits for this noncontrast study. Gallbladder and bile ducts: Normal. No calcified stones. No ductal dilation. Pancreas: Normal. No ductal dilation. Spleen: The spleen is normal. Adrenal glands: No discrete adrenal nodule. Kidneys and ureters: Bilateral nonobstructing renal calculi similar to the comparison study. Mild fullness of upper pole calices greater on the right than the left without gross hydronephrosis. Somewhat thickened uroepithelial my of renal pelves and proximal ureters which suggests inflammation better demonstrated on the previous contrast enhanced study. Perinephric fat stranding greater on the right than the left. This appears slightly increased since the comparison study. Stomach and bowel: Unremarkable. No obstruction. No mucosal thickening. Appendix: A normal appendix is identified. Intraperitoneal space: Low volume ascites seen best posterior to the liver, in the right pericolic gutter, and in the pelvis. Vasculature: Unremarkable. No abdominal aortic aneurysm. Lymph nodes: Unremarkable. No enlarged lymph nodes. Urinary bladder: Persistent thick-walled urinary bladder. Reproductive: Unremarkable as visualized. Bones/joints: Unremarkable. No acute fracture. Soft tissues: Unremarkable. IMPRESSION: 1. Mild fullness upper collecting systems without gross hydronephrosis. 2. Increased perinephric fat stranding especially on the right. This is a nonspecific finding although pyelonephritis and ureteritis cannot be excluded. 3. Persistent thick-walled urinary bladder most consistent with neurogenic bladder in this young patient. Chronic cystitis would also be a consideration. 4. Low volume abdominal ascites and free pelvic fluid. Dictated and Authenticated by: Fernando Willis MD. Ordering:MAEVE Castro MD
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
[2020-06-03] MEDS: Ondansetron O.D.T. 4 MG TABEF PO ×2 (03:21→12:17)
[2020-06-03] MEDS: Normal Saline 1,000 ML 125 ML IV ×3 (03:22→22:02)
[2020-06-03] MEDS: Normal Saline Flush 10 ML SYR (03:27)
[2020-06-03] MEDS: Acetaminophen 325 MG TAB 650 MG PO (05:41)
[2020-06-03] MEDS: Normal Saline 500 ML IV (05:43)
[2020-06-03 07:20] LABS: Abs Immature Grans 0.77 10^3/uL (0.0-0.06); HCT 25.9 % (36.0-46.0); HGB 8.6 g/dL (11.2-15.7); MCHC 33.2 % (32.0-36.0); MCV 90.2 fL (80-95); MPV 10.4 fL (8.0-11.0); Nucleated RBC 0 %; RBC 2.87 10^6/uL (3.93-5.22); RDW 12.7 % (11.7-14.6); RDW-SD 41.8 fL
[2020-06-03 07:23] LABS: WBC 33.88 10^3/uL (4.4-10.8)
[2020-06-03 07:35] LABS: Anion Gap 13.6 mmol/L (3-11); BUN 32 mg/dL (7-18); CO2 14.4 mmol/L (21.0-32.0); CREATININE 2.4 mg/dL (0.55-1.02); Calcium 7.8 mg/dL (8.5-10.1); Chloride 104 mmol/L (98-107); Estimated GFR 25.24 (mL/min/1.73m2); Glucose 239 mg/dL (74-106); Sodium 132 mmol/L (136-145)
[2020-06-03 07:55] LABS: Absolute Lymphocyte Count 0.68 10^3/uL (1.2-3.4); Absolute Monocyte Count 1.36 10^3/uL (0.1-0.8); Absolute Neutrophil Count 31.17 10^3/uL (1.2-6.7); Bands % 8; Platelet Count 235 10^3/uL (130-400)
[2020-06-03 07:56] LABS: Myelocytes % 2
[2020-06-03 07:57] LABS: Diff Comment Manual Differential; RBC Morphology Normal
[2020-06-03 08:25] LABS: C-Reactive Protein > 25.00 mg/dL (0.0-0.3)
[2020-06-03] MEDS: Loperamide 2 MG CAP PO ×2 (08:26→22:00)
[2020-06-03] MEDS: Citalopram 10 MG TAB 20 MG PO (08:28)
[2020-06-03] MEDS: Cholecalciferol (Vitamin D3) 1,000 UNIT TAB 5000 UNITS PO (08:28)
[2020-06-03] MEDS: Lisinopril 5 MG TAB 2.5 MG PO (08:29)
[2020-06-03] MEDS: Dicyclomine 10 MG CAP 20 MG PO (08:29)
[2020-06-03] MEDS: Gabapentin 600 MG TAB PO ×2 (08:30→22:00)
[2020-06-03] MEDS: Folic Acid 1 MG TAB PO (08:30)
[2020-06-03] MEDS: Midodrine 2.5 MG TAB 15 MG PO ×3 (08:31→22:00)
[2020-06-03] MEDS: Lactobacillus Acidophilus CAP 1 CAP PO (08:31)
[2020-06-03 08:32] LABS: Procalcitonin 116.2 ng/mL
[2020-06-03] MEDS: Insulin Aspart 300 UNITS/3 ML PEN SC (08:35)
[2020-06-03] MEDS: Insulin Glargine 300 UNITS/3 ML PEN 28 UNITS SC (08:36)
[2020-06-03] MEDS: Thiamine 100 MG TAB PO (08:53)
[2020-06-03 11:34] LABS: Lactate 2.7 mmol/L (0.6-1.4)
[2020-06-03 11:46] LABS: Anion Gap 12.2 mmol/L (3-11); BUN 32 mg/dL (7-18); CO2 14.8 mmol/L (21.0-32.0); CREATININE 2.3 mg/dL (0.55-1.02); Calcium 8.4 mg/dL (8.5-10.1); Chloride 105 mmol/L (98-107); Estimated GFR 26.51 (mL/min/1.73m2); Glucose 152 mg/dL (74-106); Potassium 4.3 mmol/L (3.5-5.1); Sodium 132 mmol/L (136-145)
[2020-06-03] MEDS: VANCOMYCIN 1,250 MG in Normal Saline 250 ML 167 MG IV (11:57)
[2020-06-03] MEDS: Normal Saline 1,000 ML 1000 ML IV (12:16)
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
[2020-06-03] MEDS: Dicyclomine 20 MG TAB PO ×2 (14:03→22:00)
[2020-06-03] MEDS: PIPERACILLIN/TAZO 3.375 GM in Normal Saline 50 ML IVPB ×2 (14:08→22:01)
--- NOTE | 2020-06-03 16:17 | PDOC.CMIN ---
- If Service Date Differs Date of service: 06/03/20 Time of Service: 16:17 Care Management Initial Assess REASON FOR HOSPITALIZATION:: Urosepsis PAST MEDICAL HISTORY/PAST SURGICAL HISTORY:: Medical History. Acute deep vein thrombosis (DVT) of left lower extremity. Acute deep vein thrombosis (DVT) of right femoral vein. Acute kidney injury. Acute on chronic anemia. Acute renal failure superimposed on chronic kidney disease. Acute urinary retention. Amenorrhea. last menses 2018. not on control. Autonomic dysfunction. being worked up by neurology [facility]. hypotension certainly part of this syndrome. Bilateral hydronephrosis. Bilateral lower extremity edema. Chronic anticoagulation. Chronic diarrhea. CIDP (chronic inflammatory demyelinating polyneuropathy). Dr Mosher, neurologist. Dental injury. fell on front teeth. Diabetic neuropathy. Discharge planning issues. DVT prophylaxis. Family history of irritable bowel syndrome. mother, brother. Fever. Fungemia. Hypoglycemia. Kidney stones. Poor nutrition. Positive blood culture. Recurrent falls while walking. Retinopathy. Secondary amenorrhea. Sepsis. Transient blindness. Type 1 diabetes. Type 1 diabetes mellitus, uncontrolled. UTI (urinary tract infection). Vitamin D deficiency. poor diet, doesn't go outside. Walker as ambulation aid. Weakness of distal arms and legs. Weight gain due to medication. Surgical History. No significant past surgical history PREVIOUS FUNCTIONAL STATUS/SOCIAL/FAMILY SUPPORTS:: Jes lives in [place] with her father and brother. She moved to [place] from [place] about a year ago. She is not currently working. She has type 1 DM, which she has difficulty managing, but she receives support from her father. She is independent with ADL's at baseline. CURRENT FUNCTIONAL STATUS:: CM met with Jes after she was transferred into the ICU. She stated that things have been going well at home until a couple days ago, when she started to not feel well. During the conversation, Jes began to feel sick and vomitted. CM asked for her RN to assist. CM will continue to follow. ADVANCE DIRECTIVES:: None on file. CM will offer forms. Has patient been provided with info about the portal/API?: Yes Did the patient sign up for the portal?: Yes CODE STATUS:: Full Code INSURANCE COVERAGE / FINANCIAL ISSUES:: LEONID CURRENT HOME/COMMUNITY SERVICES/EQUIPMENT:: No current services or equipment. PRIMARY CARE PHYSICIAN:: Maikel Vargas POTENTIAL DISCHARGE NEEDS:: Evaluations for further needs, follow up appointments PATIENT/FAMILY EDUCATION NEEDS:: Review discharge instructions regarding medication, diet and diabetes education, discussion of self care and self management. ANTICIPATED BARRIERS TO DISCHARGE:: None identified at this time. TRANSPORTATION:: Via private vehicle by family. PLAN:: Jes was transferred into the ICU today. She will return home once medically cleared. She will transport via private vehicle when ready. She will follow up with her PCP and discharge plan of care. CM will continue to follow.
[2020-06-03] MEDS: ACETAMINOPHEN 1,000 MG/100 ML BTL 400 MG IVPB (17:44)
[2020-06-03] MEDS: Normal Saline Flush 10 ML SYR IVP (17:45)
[2020-06-03] MEDS: Ascorbic Acid 500 MG TAB 1000 MG PO (22:00)
[2020-06-03] MEDS: Pantoprazole 40 MG TABCR PO (22:00)
[2020-06-03] MEDS: Mirtazapine 15 MG TAB PO (22:00)
[2020-06-04] VITALS (26 sets, daily range): BP systolic 94–156; BP diastolic 51–100; PULSE 79–114; RESP 14–25; TEMP 36.8–39.4; O2SAT 92–98
[2020-06-04] MEDS: VANCOMYCIN 750 MG in Normal Saline 250 ML 167.007 MG IV ×2 (00:11→12:07)
[2020-06-04] MEDS: ACETAMINOPHEN 1,000 MG/100 ML BTL 400 MG IVPB ×2 (00:30→23:07)
[2020-06-04] MEDS: PIPERACILLIN/TAZO 3.375 GM in Normal Saline 50 ML IVPB ×4 (02:32→19:27)
[2020-06-04 03:39] LABS: COVID-19 RT-PCR UVMMC Result Negative (Negative)
[2020-06-04 06:50] LABS: Abs Immature Grans 0.52 10^3/uL (0.0-0.06); HCT 28.2 % (36.0-46.0); HGB 9.4 g/dL (11.2-15.7); MCHC 33.3 % (32.0-36.0); MCV 90.1 fL (80-95); MPV 10.3 fL (8.0-11.0); Nucleated RBC 0 %; Platelet Count 244 10^3/uL (130-400); RBC 3.13 10^6/uL (3.93-5.22); RDW 12.8 % (11.7-14.6); RDW-SD 42.1 fL; WBC 24.85 10^3/uL (4.4-10.8)
[2020-06-04 06:52] LABS: Absolute Lymphocyte Count 1.24 10^3/uL (1.2-3.4)
[2020-06-04 06:57] LABS: Anion Gap 13.5 mmol/L (3-11); BUN 20 mg/dL (7-18); CO2 16.5 mmol/L (21.0-32.0); CREATININE 1.9 mg/dL (0.55-1.02); Calcium 8.7 mg/dL (8.5-10.1); Chloride 111 mmol/L (98-107); Estimated GFR 33.06 (mL/min/1.73m2); Glucose 116 mg/dL (74-106); Potassium 3.6 mmol/L (3.5-5.1); Sodium 141 mmol/L (136-145)
[2020-06-04 07:21] LABS: Absolute Eosinophil Count 0.25 10^3/uL (0.0-0.7); Absolute Monocyte Count 1.49 10^3/uL (0.1-0.8); Absolute Neutrophil Count 21.12 10^3/uL (1.2-6.7); Myelocytes % 2
[2020-06-04 07:22] LABS: Metamyelocytes % 1; RBC Morphology Normal
[2020-06-04] MEDS: Normal Saline 1,000 ML 125 ML IV ×2 (08:36→19:52)
[2020-06-04] MEDS: Midodrine 2.5 MG TAB 15 MG PO ×3 (08:37→19:26)
[2020-06-04] MEDS: Gabapentin 600 MG TAB PO ×2 (08:38→19:27)
[2020-06-04] MEDS: Folic Acid 1 MG TAB PO (08:38)
[2020-06-04] MEDS: Lisinopril 5 MG TAB 2.5 MG PO (08:38)
[2020-06-04] MEDS: Citalopram 20 MG TAB PO (08:38)
[2020-06-04] MEDS: Ascorbic Acid 500 MG TAB 1000 MG PO ×2 (08:38→19:27)
[2020-06-04] MEDS: Loperamide 2 MG CAP PO ×2 (08:38→19:27)
[2020-06-04] MEDS: Thiamine 100 MG TAB PO (08:38)
[2020-06-04] MEDS: Dicyclomine 20 MG TAB PO ×3 (08:38→19:26)
[2020-06-04] MEDS: Cholecalciferol (Vitamin D3) 1,000 UNIT TAB 5000 UNITS PO (08:46)
[2020-06-04] MEDS: Insulin Glargine 300 UNITS/3 ML PEN 28 UNITS SC (08:46)
[2020-06-04] MEDS: Insulin Aspart 300 UNITS/3 ML PEN SC (11:58)
--- NOTE | 2020-06-04 12:10 | PHA.REVIEW ---
Pharmacy Admission Review - Admission Clinical Review (Last Reviewed 06/02/20 @ 23:20 by CLEMENT Fuller) Gram-negative bacteremia (Acute) Pyelonephritis (Acute) Sepsis (Acute) Acute kidney injury (Acute) Sepsis secondary to UTI (Acute) Neurogenic bladder (Acute) No Known Allergies Allergy (Unverified 06/02/20 21:43) Height 5 ft 6 in Weight 75.2 kg - Renal Dosing Renal Dosing: BUN 20 mg/dL (7-18) H D 06/04/20 06:10 Creatinine 1.9 mg/dL (0.55-1.02) H 06/04/20 06:10 Medications needing adjustments: Reviewed (CRCL ~43.47ML/MIN) - Anticoagulation Anticoagulation: Hgb 9.4 g/dL (11.2-15.7) L 06/04/20 06:10 Hct 28.2 % (36.0-46.0) L 06/04/20 06:10 Plt Count 244 10^3/uL (130-400) 06/04/20 06:10 Creatinine 1.9 mg/dL (0.55-1.02) H 06/04/20 06:10 DVT Prohphylaxis: N/A (per h&P ambulation for DVT prophylaxis) Therapeutic Anticoagulation: N/A - Relevant Labs Sodium 141 mmol/L (136-145) 06/04/20 06:10 Potassium 3.6 mmol/L (3.5-5.1) 06/04/20 06:10 Chloride 111 mmol/L (98-107) H 06/04/20 06:10 C-Reactive Protein > 25.00 mg/dL (0.0-0.3) H 06/03/20 06:54 - DM Control DM Control: Glucose 116 mg/dL (74-106) H 06/04/20 06:10 Finger Stick Blood Glucose 282 Finger Stick Blood Glucose 126 Insulin Dosing: Reviewed (insulin aspart and glargine ordered) - BP Control BP Control: Blood Pressure [Left Arm] 147/84 Blood Pressure 112/78 Blood Pressure 94/51 Blood Pressure 108/74 - Qtc Review If Elevated: N/A - IV to PO Switch IV Medications: Reviewed (IV abx, IVF, IV APAP) - Home Meds Home Med List reviewed: Reviewed (citalopram dose inpt different than last phamacy cone picker will make provider aware) - Current meds Current Medication Order Review: Reviewed (patient home med sod cl tabs not brought in yet. Na level is ok .) - Comments Comments/Follow Ups: vancomycin trough ordered for 06/05@1100 Antibiotic Activity - Pharmacy Antibiotic Review Pharmacy Antibiotic Activity: Renal function adjustment (rescheduled dosing interval of vancomycin due to change in renal function)
--- NOTE | 2020-06-04 13:03 | W.PM.PROGNOT ---
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 CRP of greater than 25 Blood and urine cultures growing gram negative rods. At this time on zosyn and vanco, will discontinue vancomycin as it does not look like there is a gram-positive component to her infection. patient also has a history of fungemia, blood culture being r/o for fugnemia, last admission required transfer to [facility] for treatment, she straight cath herself for neurogenic bladder, she would benefit from bladder training, therefore catheter placed and obtain renal ultrasound ordered. Will likely remove tomorrow. Her inflammatory markers, vital signs and clinical appearance have improved since transferring to the ICU. I like to monitor her there today, but if she remains stable consider transfer. Getting vitamin c and vitamin d as part of to sepsis regimen monitor labs daily (2) Gram-negative bacteremia: Status: Acute Assessment and plan: On zosyn as above (3) Pyelonephritis: Status: Acute Assessment and plan: Pt with gross pyuria. self caths, not on sched, likely waits too long would benefit from bladder training see above COntinue Zosyn. CT consistent with right pyelonephritis. Bilateral nephrolithiasis also noted. Follow urine cx. (4) Acute kidney injury: Status: Acute Assessment and plan: Baseline Cr ~1.7, now now down to 1.9, close to her baseline. PAM consistent with prerenal with acute infection/sepsis. Continue IVF and follow. (5) Neurogenic bladder: Status: Acute Assessment and plan: as above. With neurogenic bladder and nephrolithiasis I will ask for urology consult. (6) Type 1 diabetes: Status: Chronic Assessment and plan: Cont Lantus and SSI as needed. She does have CGM Full Code Ambulate for DVT ppx. Subjective Subjective Patient reports: tolerating a regular diet and voiding w/o difficulty (With Richardson); denies diarrhea, vomiting and shortness of breath Interval history since last seen: 24-hour events: Transferred to ICU after spiking fevers with blood pressure in the 90s RN states she feels much better today. She no longer feels nauseous and she ate breakfast. She had not had any fevers since last night. She does not feel dizzy sitting up Exam Narrative Exam Narrative: GEN: Alert and oriented, pleasent and cooperative, gives linear history. No acute distress at rest lying in bed. HEENT: Conjunctiva clear, no icterus. no rhinorrhea. MMM, OP benign. LUNGS: CTAB with normal effort CV: RRR with no murmurs, gallops, or rubs. ABD: +BS, soft, NT/ND EXT: no cyanosis, clubbing, or edema SKIN: No rashs or open wounds. PSYCH: normal mood and affect, more bright today. Objective Last Vital Signs Temp 36.8 C 06/04/20 08:00 Pulse 96 H 06/04/20 08:00 Resp 14 06/04/20 08:00 BP 147/84 H 06/04/20 08:00 Pulse Ox 92 06/04/20 08:00 Laboratory Results - last 24 hr 06/02/20 06/04/20 06/04/20 23:50 06:10 06:10 WBC 24.85 H RBC 3.13 L Hgb 9.4 L Hct 28.2 L MCV 90.1 MCH 30.0 MCHC 33.3 RDW 12.8 Plt Count 244 MPV 10.3 Immature Gran % 0.0 Neutrophils % 85.0 Lymphocytes % 5.0 Monocytes % 6.0 Eosinophils % 1.0 Basophils % 0.0 Metamyelocytes % 1 Myelocytes % 2 Nucleated RBC % 0 Absolute Neutrophils 21.12 H Absolute Lymphocytes 1.24 Absolute Monocytes 1.49 H Absolute Eosinophils 0.25 Absolute Basophils 0.00 RBC Morphology Normal Sodium 141 Potassium 3.6 Chloride 111 H Carbon Dioxide 16.5 L Anion Gap 13.5 H BUN 20 H D Creatinine 1.9 H Estimated GFR/1.73 m2 33.06 Glucose 116 H Calcium 8.7 SARS-CoV-2 (PCR) Negative Nasopharyn COVID-19 PCR Not Applicable Ref Test Perform Site [facility]
[2020-06-04] MEDS: Mylanta Suspension 30 ML CUP PO (15:14)
--- NOTE | 2020-06-04 15:41 | PDOC.CMPRO ---
- If Service Date Differs Date of service: 06/04/20 Time of Service: 15:41 Care Management Progress Note S/O: Jes was sitting up in bed when CM met with her. She stated that she is feeling much better today. Per report, clinically she appears to be improving. She reported that she would like to take a shower today. RN stated that she would attempt this later today if time allowed. Jes also reported that she has a RN that visits her once a week, which may be from [facility]. CM will continue to follow. A: Jes is a 20 year old female admitted to [facility] on 06/03/20 with Urosepsis. P: Jes remains at ICU level of care. She will return home once medically cleared. She will transport via private vehicle when ready. She will follow up with her PCP and discharge plan of care. CM will continue to follow.
[2020-06-04] MEDS: Ondansetron O.D.T. 4 MG TABEF PO (16:06)
[2020-06-04] MEDS: Mirtazapine 15 MG TAB PO (21:02)
[2020-06-04] MEDS: Pantoprazole 40 MG TABCR PO (21:02)
[2020-06-05] VITALS (13 sets, daily range): BP systolic 99–149; BP diastolic 67–98; PULSE 76–104; RESP 12–20; TEMP 37.1–38.2; O2SAT 85–99
[2020-06-05] MEDS: Normal Saline 1,000 ML 125 ML IV ×3 (02:48→22:10)
[2020-06-05] MEDS: PIPERACILLIN/TAZO 3.375 GM in Normal Saline 50 ML IVPB ×4 (02:49→19:56)
[2020-06-05] MEDS: Normal Saline Flush 10 ML SYR IVP ×2 (02:49→08:22)
[2020-06-05 07:04] LABS: Abs Immature Grans 0.16 10^3/uL (0.0-0.06); Absolute Basophil Count 0.08 10^3/uL (0.0-0.2); Absolute Eosinophil Count 0.27 10^3/uL (0.0-0.7); Absolute Monocyte Count 1.77 10^3/uL (0.1-0.8); Absolute Neutrophil Count 11.72 10^3/uL (1.2-6.7); Basophils % 0.5; Eosinophils % 1.8; HCT 25.8 % (36.0-46.0); HGB 8.8 g/dL (11.2-15.7); Lymphocytes % 8.3; MCH 30.2 pg (27.0-33.0); MCHC 34.1 % (32.0-36.0); MCV 88.7 fL (80-95); MPV 10.1 fL (8.0-11.0); Monocytes % 11.6; Neutrophils % 76.8; Nucleated RBC 0 %; Platelet Count 242 10^3/uL (130-400); RBC 2.91 10^6/uL (3.93-5.22); RDW 12.6 % (11.7-14.6); RDW-SD 41.3 fL; WBC 15.26 10^3/uL (4.4-10.8)
[2020-06-05 07:07] LABS: Absolute Lymphocyte Count 1.27 10^3/uL (1.2-3.4)
[2020-06-05 07:09] LABS: Anion Gap 13.6 mmol/L (3-11); BUN 9 mg/dL (7-18); CO2 18.4 mmol/L (21.0-32.0); CREATININE 1.7 mg/dL (0.55-1.02); Calcium 8.5 mg/dL (8.5-10.1); Chloride 108 mmol/L (98-107); Estimated GFR 37.58 (mL/min/1.73m2); Glucose 121 mg/dL (74-106); Potassium 3.1 mmol/L (3.5-5.1); Sodium 140 mmol/L (136-145)
--- NOTE | 2020-06-05 07:19 | NUR.NOTE ---
Nursing Note: Insulin device noted on left upper arm. Do not take blood pressure on the left arm.
[2020-06-05 07:26] LABS: Diff Comment Agrees w/ Instrument; Polychromasia Present
[2020-06-05] MEDS: Cholecalciferol (Vitamin D3) 1,000 UNIT TAB 5000 UNITS PO (08:20)
[2020-06-05] MEDS: Dicyclomine 20 MG TAB PO ×3 (08:20→19:52)
[2020-06-05] MEDS: Gabapentin 600 MG TAB PO ×2 (08:20→19:52)
[2020-06-05] MEDS: Ascorbic Acid 500 MG TAB 1000 MG PO ×2 (08:20→19:52)
[2020-06-05] MEDS: Folic Acid 1 MG TAB PO (08:20)
[2020-06-05] MEDS: Loperamide 2 MG CAP PO ×2 (08:21→19:52)
[2020-06-05] MEDS: Thiamine 100 MG TAB PO (08:21)
[2020-06-05] MEDS: Citalopram 20 MG TAB PO (08:21)
[2020-06-05] MEDS: Insulin Glargine 300 UNITS/3 ML PEN 28 UNITS SC (08:22)
[2020-06-05] MEDS: Citalopram 10 MG TAB PO (10:17)
[2020-06-05] MEDS: Potassium Chloride Liquid 20 MEQ PKT 40 MEQ PO (10:17)
[2020-06-05 11:52] LABS: Vancomycin, Trough 17.2 ug/mL (10.0-20.0)
[2020-06-05] MEDS: Insulin Aspart 300 UNITS/3 ML PEN SC (11:58)
--- NOTE | 2020-06-05 14:35 | W.INDIABCONS ---
Date of service: 06/05/20 Time of Service: 14:35 Diabetes Inpatient Consult DESCRIPTION/ASSESSMENT: 20 year old female admitted with Dm1 with dexcom continuous monitor, with UTI and sepsis. PMH: chronic inflammatory demyelination poly neuropathy. BMI wnl and stable. Most recent A1C: 7% indicating adequately controlled DM. Met with Jes to provide diabetes education. She mostly declined information. She is following CHO diet with adequate intake. BS well controlled. INTERVENTION: Provided education on DM including Hyper/hypoglycemia s/s with action plan for each scenario. Definition and types of CHO with examples, CHO counting, DASH diet materials, DM meal planning and label reading literature. Provided a blood sugar and food record chart and materials to reiterate CHO counting techniques. Reviewed desirable BG levels with patient with food choices and portions for optimal outcomes. Provided contact information for this RD and encouraged to call with any f/u questions r/t to DM self management. CDM from kitchen has been helping to count CHO's and achieve intake of ~65g/CHO per meal period PLAN: continue CHO diet will follow Time Spent in Nutritional Counseling and Treatment: 10 min
--- NOTE | 2020-06-05 15:34 | CMPROGNOTE_ITS ---
- If Service Date Differs Date of service: 06/05/20 Time of Service: 15:34 Care Management Progress Note S/O: Jes was sitting up in her bed today when CM met with her. She stated that she was feeling ok, but did vomit this morning. She reported that she is concerned that her abx are making her vomit. CM relayed this information to her RN. She is currently tolerating her liquid diet well, per report. CM will continue to follow. A: Jes is a 20 year old female admitted to [facility] on 06/03/20 with Urosepsis. P: Jes remains at ICU level of care. She will return home once medically cleared. She will transport via private vehicle when ready. She will follow up with her PCP and discharge plan of care. CM will continue to follow.
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
--- NOTE | 2020-06-05 20:17 | PGE_ITS ---
Date of Service Date of service: 06/05/20 Time of Service: 15:24 Assessment and Plan Assessment and plan (1) Sepsis secondary to UTI: Status: Acute Assessment and plan: On admission she was febrile at 39, with leukocytosis 33, procal of 116. CRP of greater than 25 Blood and urine cultures growing gram negative rods, klebsiela. patient also has a history of fungemia, blood culture being r/o for fugnemia, last admission required transfer to [facility] for treatment, she straight cath herself for neurogenic bladder, she would benefit from bladder training, therefore catheter placed. Her inflammatory markers, vital signs and clinical appearance have improved. Getting vitamin c and vitamin d as part of to sepsis regimen, can discontinue. monitor labs daily (2) Gram-negative bacteremia: Status: Acute Assessment and plan: Received ~24hr Vanco/Zosyn. Vanco stopped 06/04. On zosyn as above. C&S back, will narrow to cefazolin. (3) Pyelonephritis: Status: Acute Assessment and plan: Pt with gross pyuria. self caths, not on sched, likely waits too long would benefit from bladder training see above. CT consistent with right pyelonephritis. Bilateral nephrolithiasis also noted. Follow urine cx. (4) Acute kidney injury: Status: Acute Assessment and plan: Baseline Cr ~1.7, now now down to her baseline. PAM consistent with prerenal with acute infection/sepsis. Continue IVF and follow. (5) Neurogenic bladder: Status: Acute Assessment and plan: as above. With neurogenic bladder and nephrolithiasis requested urology consult. (6) Type 1 diabetes: Status: Chronic Assessment and plan: Cont Lantus and SSI as needed. She does have CGM Full Code Ambulate for DVT ppx. Subjective Subjective Patient reports: tolerating a regular diet and diarrhea (2 loose stools, typical when on antibiotics for her); denies blood in stool, shortness of breath and fever Interval history since last seen: 24hr: Transfered to floor Feels okay today. She did get nauseous and vomit a couple times. Seems to be after her midodrine pill, she has noticed this before. She is still hungry and is not vomiting her food. Exam Narrative Exam Narrative: GEN: Alert and oriented, pleasent and cooperative, gives linear history. No acute distress at rest lying in bed. HEENT: Conjunctiva clear, no icterus. MMM, OP benign. LUNGS: CTAB with normal effort CV: RRR with no murmurs, gallops, or rubs. ABD: +BS, soft, NT/ND EXT: no cyanosis, clubbing, or edema SKIN: No rashs or open wounds. dry skin, not clammy. Objective Last Vital Signs Temp 37.1 C 06/05/20 19:49 Pulse 104 H 06/05/20 19:49 Resp 18 06/05/20 19:49 BP 99/67 L 06/05/20 19:49 Pulse Ox 96 06/05/20 19:49 Laboratory Results - last 24 hr 06/02/20 06/05/20 06/05/20 22:30 06:43 06:43 WBC 15.26 H D RBC 2.91 L Hgb 8.8 L Hct 25.8 L MCV 88.7 MCH 30.2 MCHC 34.1 RDW 12.6 Plt Count 242 MPV 10.1 Immature Gran % 1.0 Neutrophils % 76.8 Lymphocytes % 8.3 Monocytes % 11.6 Eosinophils % 1.8 Basophils % 0.5 Nucleated RBC % 0 Absolute Neutrophils 11.72 H Absolute Lymphocytes 1.27 Absolute Monocytes 1.77 H Absolute Eosinophils 0.27 Absolute Basophils 0.08 RBC Morphology See below Polychromasia Present Sodium 140 Potassium 3.1 L Chloride 108 H Carbon Dioxide 18.4 L Anion Gap 13.6 H BUN 9 D Creatinine 1.7 H Estimated GFR/1.73 m2 37.58 Glucose 121 H Calcium 8.5 Vancomycin Trough Path Cons Comment 06/05/20 11:28 WBC RBC Hgb Hct MCV MCH MCHC RDW Plt Count MPV Immature Gran % Neutrophils % Lymphocytes % Monocytes % Eosinophils % Basophils % Nucleated RBC % Absolute Neutrophils Absolute Lymphocytes Absolute Monocytes Absolute Eosinophils Absolute Basophils RBC Morphology Polychromasia Sodium Potassium Chloride Carbon Dioxide Anion Gap BUN Creatinine Estimated GFR/1.73 m2 Glucose Calcium Vancomycin Trough 17.2 Path Cons Comment
[2020-06-05] MEDS: Mirtazapine 15 MG TAB PO (21:30)
[2020-06-05] MEDS: Pantoprazole 40 MG TABCR PO (21:30)
[2020-06-06] VITALS (8 sets, daily range): BP systolic 106–141; BP diastolic 72–96; PULSE 76–98; RESP 16–18; TEMP 36.3–38.6; O2SAT 95–98
[2020-06-06] MEDS: ACETAMINOPHEN 1,000 MG/100 ML BTL 400 MG IVPB ×2 (03:40→19:46)
[2020-06-06] MEDS: Normal Saline 1,000 ML 125 ML IV ×3 (06:01→22:44)
[2020-06-06 07:29] LABS: Abs Immature Grans 0.09 10^3/uL (0.0-0.06); Absolute Basophil Count 0.06 10^3/uL (0.0-0.2); Absolute Eosinophil Count 0.23 10^3/uL (0.0-0.7); Absolute Lymphocyte Count 1.47 10^3/uL (1.2-3.4); Absolute Monocyte Count 1.76 10^3/uL (0.1-0.8); Absolute Neutrophil Count 7.16 10^3/uL (1.2-6.7); Basophils % 0.6; Eosinophils % 2.1; HCT 24.4 % (36.0-46.0); HGB 8.2 g/dL (11.2-15.7); Immature Grans % 0.8; Lymphocytes % 13.6; MCH 29.8 pg (27.0-33.0); MCHC 33.6 % (32.0-36.0); MCV 88.7 fL (80-95); Monocytes % 16.3; Neutrophils % 66.6; Nucleated RBC 0 %; Platelet Count 284 10^3/uL (130-400); RBC 2.75 10^6/uL (3.93-5.22); RDW 13.2 % (11.7-14.6); RDW-SD 43.5 fL; WBC 10.77 10^3/uL (4.4-10.8)
[2020-06-06 07:49] LABS: Anion Gap 15.4 mmol/L (3-11); BUN 5 mg/dL (7-18); CO2 18.6 mmol/L (21.0-32.0); CREATININE 1.6 mg/dL (0.55-1.02); Calcium 8.2 mg/dL (8.5-10.1); Chloride 108 mmol/L (98-107); Estimated GFR 40.31 (mL/min/1.73m2); Glucose 71 mg/dL (74-106); Sodium 142 mmol/L (136-145)
[2020-06-06 07:50] LABS: Potassium 2.8 mmol/L (3.5-5.1)
[2020-06-06 08:10] LABS: Diff Comment Diff Reviewed; Polychromasia Present
[2020-06-06] MEDS: Insulin Glargine 300 UNITS/3 ML PEN 28 UNITS SC (09:43)
[2020-06-06] MEDS: Cholecalciferol (Vitamin D3) 1,000 UNIT TAB 5000 UNITS PO (09:46)
[2020-06-06] MEDS: Loperamide 2 MG CAP PO ×2 (09:46→19:52)
[2020-06-06] MEDS: Dicyclomine 20 MG TAB PO ×3 (09:46→19:52)
[2020-06-06] MEDS: Thiamine 100 MG TAB PO (09:47)
[2020-06-06] MEDS: Folic Acid 1 MG TAB PO (09:48)
[2020-06-06] MEDS: Lisinopril 5 MG TAB 2.5 MG PO (09:48)
[2020-06-06] MEDS: Citalopram 10 MG TAB 30 MG PO (09:48)
[2020-06-06] MEDS: Gabapentin 600 MG TAB PO ×2 (09:48→19:52)
[2020-06-06] MEDS: POTASSIUM CHLORIDE 10 MEQ/100 ML BAG 100 MEQ IVPB ×3 (09:55→12:16)
[2020-06-06 10:05] LABS: Magnesium 1.3 mg/dL (1.8-2.4)
[2020-06-06] MEDS: Magnesium Oxide 400 MG TAB PO ×2 (10:48→22:34)
[2020-06-06] MEDS: Insulin Aspart 300 UNITS/3 ML PEN SC (11:54)
[2020-06-06 13:43] LABS: Potassium 3.4 mmol/L (3.5-5.1)
--- NOTE | 2020-06-06 15:23 | W.PM.PROGNOT ---
Date of Service Date of service: 06/06/20 Time of Service: 15:24 Assessment and Plan Assessment and plan (1) Gram-negative bacteremia: Status: Acute Assessment and plan: Blood and urine cxs growing Klebsiella Cont Cefazolin. Planning to change to Levaquin at time of discharge. IV fluids until or intake is adequate (2) Pyelonephritis: Status: Acute Assessment and plan: D/t Klebsiella pneumoniae Cefazolin with plans to change to oral Levquin at time of d/c Urology consult appreciated. Has nonobstructing bilateral nephrolithiasis; not likely the source of infection. (3) Type 1 diabetes: Status: Chronic Assessment and plan: Cont Lantus; lower dose d/t hypoglycemia this afternoon. Cont SS insulin. Diabetic diet. (4) Neurogenic bladder: Status: Acute Assessment and plan: Has aguilera catheter in place. Urology has evaluated. Intermittent catheterizes at home; likely source of infection is concompliance with catheterizations. Urology recommends not allowing bladder volumes to increase over 400-500. Subjective Subjective Patient reports: no new complaints, feels better, tolerating liquids well, nausea and afebrile; denies vomiting and shortness of breath Interval history since last seen: Became lightheaded this afternoon; blood glucose was in the 40's. Given oral dextrose. Exam Const General: cooperative and no acute distress Orientation: alert and oriented x3 Resp Effort & Inspection: normal respiratory effort Auscultation: clear to auscultation bilaterally Cardio Rate: regular rate Rhythm: regular rhythm Heart Sounds: S1 normal and S2 normal GI Inspection: normal to inspection Palpation: soft and tender in the epigastrum (mild); with no rebound tenderness Extrem General: no pedal edema and no calf tenderness Objective Last Vital Signs Temp 36.9 C 06/06/20 11:20 Pulse 86 06/06/20 11:20 Resp 16 06/06/20 11:20 BP 128/84 06/06/20 11:20 Pulse Ox 98 06/06/20 11:20 Laboratory Results - last 24 hr 06/06/20 06/06/20 06/06/20 06:52 06:52 06:52 WBC 10.77 RBC 2.75 L Hgb 8.2 L Hct 24.4 L MCV 88.7 MCH 29.8 MCHC 33.6 RDW 13.2 Plt Count 284 MPV 10.0 Immature Gran % 0.8 Neutrophils % 66.6 Lymphocytes % 13.6 Monocytes % 16.3 Eosinophils % 2.1 Basophils % 0.6 Nucleated RBC % 0 Absolute Neutrophils 7.16 H Absolute Lymphocytes 1.47 Absolute Monocytes 1.76 H Absolute Eosinophils 0.23 Absolute Basophils 0.06 RBC Morphology See below Polychromasia Present Sodium 142 Potassium 2.8 L* Chloride 108 H Carbon Dioxide 18.6 L Anion Gap 15.4 H BUN 5 L Creatinine 1.6 H Estimated GFR/1.73 m2 40.31 Glucose 71 L D Calcium 8.2 L Magnesium 1.3 L 06/06/20 13:17 WBC RBC Hgb Hct MCV MCH MCHC RDW Plt Count MPV Immature Gran % Neutrophils % Lymphocytes % Monocytes % Eosinophils % Basophils % Nucleated RBC % Absolute Neutrophils Absolute Lymphocytes Absolute Monocytes Absolute Eosinophils Absolute Basophils RBC Morphology Polychromasia Sodium Potassium 3.4 L Chloride Carbon Dioxide Anion Gap BUN Creatinine Estimated GFR/1.73 m2 Glucose Calcium Magnesium
--- NOTE | 2020-06-06 15:57 | CMPROGNOTE_ITS ---
- If Service Date Differs Date of service: 06/06/20 Time of Service: 15:57 Care Management Progress Note S/O: Jes was sitting up in her bed today when CM met with her. She stated that she was feeling tired, but better, but was not very talkative. She had an episode of hypoglycemia this afternoon where her blood sugar dropped into the 40's. She is tolerating her liquid diet well. A: Jes is a 20 year old female admitted to [facility] on 06/03/20 with Urosepsis. P: Jes has been transferred to the Med-Surg floor. She will return home once medically cleared. She will transport via private vehicle when ready. She will follow up with her PCP and discharge plan of care. CM will continue to follow
[2020-06-06] MEDS: Potassium Chloride Liquid 20 MEQ PKT 40 MEQ PO (18:17)
[2020-06-06] MEDS: Pantoprazole 40 MG TABCR PO (22:34)
[2020-06-06] MEDS: Mirtazapine 15 MG TAB PO (22:34)
[2020-06-07 00:15] VITALS: BP 110/76; PULSE 82; RESP 18; TEMP 37.1; O2SAT 98
[2020-06-07 03:08] VITALS: BP 101/70; PULSE 86; RESP 17; TEMP 36.7; O2SAT 97
[2020-06-07] MEDS: Normal Saline 1,000 ML 125 ML IV (06:02)
[2020-06-07 07:17] VITALS: BP 107/70; PULSE 93; RESP 12; TEMP 37.8; O2SAT 94
[2020-06-07] MEDS: Dicyclomine 20 MG TAB PO (07:55)
[2020-06-07] MEDS: Cholecalciferol (Vitamin D3) 1,000 UNIT TAB 5000 UNITS PO (07:57)
[2020-06-07] MEDS: Gabapentin 600 MG TAB PO (07:58)
[2020-06-07] MEDS: Folic Acid 1 MG TAB PO (07:58)
[2020-06-07] MEDS: Thiamine 100 MG TAB PO (07:58)
[2020-06-07] MEDS: Loperamide 2 MG CAP PO (07:58)
[2020-06-07] MEDS: Citalopram 10 MG TAB 30 MG PO (07:58)
[2020-06-07] MEDS: Lisinopril 5 MG TAB 2.5 MG PO (07:58)
[2020-06-07] MEDS: Insulin Aspart 300 UNITS/3 ML PEN SC ×2 (08:00→11:53)
[2020-06-07] MEDS: Insulin Glargine 300 UNITS/3 ML PEN 18 UNITS SC (08:02)
[2020-06-07 08:56] VITALS: TEMP 36.1
[2020-06-07] MEDS: Normal Saline Flush 10 ML SYR IVP (09:16)
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
[2020-06-07] MEDS: Magnesium Oxide 400 MG TAB PO (10:35)
[2020-06-07 12:16] LABS: Anion Gap 15.4 mmol/L (3-11); BUN 4 mg/dL (7-18); C-Reactive Protein 12.12 mg/dL (0.0-0.3); CO2 18.6 mmol/L (21.0-32.0); CREATININE 1.4 mg/dL (0.55-1.02); Calcium 8.6 mg/dL (8.5-10.1); Chloride 105 mmol/L (98-107); Estimated GFR 47.02 (mL/min/1.73m2); Glucose 158 mg/dL (74-106); Potassium 3.6 mmol/L (3.5-5.1); Sodium 139 mmol/L (136-145)
[2020-06-07 12:36] LABS: Procalcitonin 5.8 ng/mL
--- NOTE | 2020-06-07 16:06 | PDOC.CMDIS ---
- If Service Date Differs Date of service: 06/07/20 Time of Service: 16:06 LACE Index Scoring Tool - Questions: Length of Stay (in days): 4 - 6 Acuity (Admit via E.D.?): Yes Comorbidities: Diabetes w/o Complication E.D. Visits: 4 - Answers: Total Score: 12 Risk of Readmission: High Risk Care Management Discharge Reason for Hospitalization: Urosepsis Discharge Plan: Jes will return home with a resumption of services that she receives through [facility] highest needs. Her dad will drive her home via private vehicle. She will follow up with her PCP and discharge plan of care. She is happy to be going home. Patient/Family Education Needs: Review discharge instructions regarding activity, diet and medications, discussion of self care needs including ask me three.
[2020-07-03 08:06] LABS: Result No fungi isolated
== END 2020-06-07 13:28 | disposition home or self-care (01) | DRG 872 ==
LOC: ER 06-03 01:18 → MS 06-03 02:24 → ICU 06-09 16:43
PROVIDERS: Family Medicine; Nurse Practitioner Family; Physician Assistant; Admitting Provider Internal Medicine; Emergency Provider Student in an Organized Health Care Education/Training Program; PCP Physician Assistant; Visit Provider Internal Medicine
DX: A41.59 Other Gram-negative sepsis (principal); N10 Acute pyelonephritis; G61.81 Chronic inflammatory demyelinating polyneuritis; N17.9 Acute kidney failure, unspecified; N31.8 Other neuromuscular dysfunction of bladder; Z86.718 Personal history of other venous thrombosis and embolism; D64.9 Anemia, unspecified; N91.2 Amenorrhea, unspecified; G90.4 Autonomic dysreflexia; N18.9 Chronic kidney disease, unspecified; Z79.01 Long term (current) use of anticoagulants; R29.6 Repeated falls; E55.9 Vitamin D deficiency, unspecified; E10.40 Type 1 diabetes mellitus with diabetic neuropathy, unspecified; E10.65 Type 1 diabetes mellitus with hyperglycemia; E10.22 Type 1 diabetes mellitus with diabetic chronic kidney disease; E10.319 Type 1 diabetes mellitus with unspecified diabetic retinopathy without macular edema; N20.0 Calculus of kidney; R33.9 Retention of urine, unspecified
CPT/HCPCS: 36415; 36416; 51701; 80048; 80053; 81025; 83690; 84145; 87040; 87077; 96361; 96365; 96375; 99223; 99232; 99233; 99239; 99253; 99291; U0003; 74176; 80202; 81003; 81015; 83605; 83735; 84132; 85025; 86140; 87086; 87103; 87186; J0131; J0690; J1815; J2405; J2543; J3480; J3490

== ENCOUNTER 2020-07-07 03:44 | Outpatient (CLI) | payer MEDICAID, SELFPAY ==
[2020-07-07 16:26] LABS: Abs Immature Grans 0.08 10^3/uL (0.0-0.06); Absolute Basophil Count 0.11 10^3/uL (0.0-0.2); Absolute Lymphocyte Count 2.34 10^3/uL (1.2-3.4); Absolute Monocyte Count 1.13 10^3/uL (0.1-0.8); Basophils % 0.8; Eosinophils % 1.5; HCT 28.7 % (36.0-46.0); HGB 9.1 g/dL (11.2-15.7); Immature Grans % 0.6; Lymphocytes % 17.8; MCH 30.3 pg (27.0-33.0); MCHC 31.7 % (32.0-36.0); MCV 95.7 fL (80-95); MPV 10.3 fL (8.0-11.0); Monocytes % 8.6; Neutrophils % 70.7; Nucleated RBC 0 %; Platelet Count 401 10^3/uL (130-400); RDW 12.8 % (11.7-14.6); RDW-SD 45.3 fL; WBC 13.15 10^3/uL (4.4-10.8)
[2020-07-07 16:45] LABS: Hemoglobin A1C 7.9 % (<5.7)
[2020-07-07 17:14] LABS: Bilirubin Negative (Negative); Blood Trace-intact (Negative); Clarity Sl Cloudy (Clear); Glucose 250 mg/dL (Negative); Ketones Negative (Negative); Leukocyte Esterase Moderate (Negative); Nitrite Negative (Negative); Specific Gravity 1.025 (1.005-1.025); Urobilinogen 0.2 EU/dL (Up TO 0.2)
[2020-07-07 17:24] LABS: Iron 67 ug/dL (50-170); Total Iron Binding Capacity 253 ug/dL (250-450); Transferrin Sat 26 % (15-50)
[2020-07-07 17:26] LABS: C & S Indicated? C&S Done As Ordered
[2020-07-07 17:34] LABS: ALT 29 U/L (14-59); AST 24 U/L (15-37); Albumin 3.5 g/dL (3.4-5.0); Alkaline Phosphatase 151 U/L (46-116); Anion Gap 14.9 mmol/L (3-11); BUN 22 mg/dL (7-18); Bacteria Rare HPF (Negative); Bilirubin, Total 0.3 mg/dL (0.2-1.0); CO2 18.1 mmol/L (21.0-32.0); CREATININE 2.4 mg/dL (0.55-1.02); Calcium 9.3 mg/dL (8.5-10.1); Chloride 104 mmol/L (98-107); Crystals Negative HPF (Negative); Epithelial Cells Few HPF (Negative); Estimated GFR 25.24 (mL/min/1.73m2); Glucose 415 mg/dL (74-106); Magnesium 1.6 mg/dL (1.8-2.4); Mucus Negative (Negative); Other Cells Negative (Negative); PHOSPHORUS 4.2 mg/dL (2.6-4.7); Potassium 5.2 mmol/L (3.5-5.1); RBC 0-2 HPF (0-2); Sodium 137 mmol/L (136-145); Total Protein 7.1 g/dL (6.4-8.2); WBC >50 HPF (0-5)
[2020-07-07 17:35] LABS: Casts Negative LPF (Negative)
[2020-07-07 18:01] LABS: Ferritin 214 ng/mL (8-252)
[2020-07-07 19:00] LABS: COMMENT (LAB VIEW ONLY) 44.91 mg/dL
[2020-07-07 19:18] LABS: Microalb ug/mg Crea 641.3 ug/mg Cr
[2020-07-10 11:28] LABS: Parathyroid Hormone,Intact 76 pg/mL (19-88)
== END 2020-07-07 03:45 | disposition home or self-care (01) ==
LOC: LBO 03:44
PROVIDERS: Nurse Practitioner Family; PCP Physician Assistant; Visit Provider Internal Medicine
DX: N31.9 Neuromuscular dysfunction of bladder, unspecified (principal); N18.30 Chronic kidney disease, stage 3 unspecified; D53.9 Nutritional anemia, unspecified; E88.09 Other disorders of plasma-protein metabolism, not elsewhere classified; R80.9 Proteinuria, unspecified; E46 Unspecified protein-calorie malnutrition; N13.30 Unspecified hydronephrosis; E10.65 Type 1 diabetes mellitus with hyperglycemia
CPT/HCPCS: 36415; 80053; 81003; 81015; 82043; 82570; 82728; 83036; 83540; 83550; 83735; 83970; 84100; 85025; 87086

== ENCOUNTER 2020-07-08 18:46 | Emergency (ER) | payer MEDICAID, SELFPAY ==
[2020-07-08 18:53] VITALS: BP 73/52; PULSE 121; RESP 16; TEMP 36.7; O2SAT 100
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
[2020-07-08] MEDS: Normal Saline 1,000 ML 1000 ML IV (19:25)
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
[2020-07-08 19:34] LABS: Lactate 2.2 mmol/L (0.6-1.4)
[2020-07-08] MEDS: AMPICILLIN/SULBACTAM 3 GM in Normal Saline 100 ML IVPB (19:35)
[2020-07-08 19:37] LABS: Abs Immature Grans 0.03 10^3/uL (0.0-0.06); Absolute Basophil Count 0.08 10^3/uL (0.0-0.2); Absolute Eosinophil Count 0.33 10^3/uL (0.0-0.7); Absolute Lymphocyte Count 2.34 10^3/uL (1.2-3.4); Absolute Monocyte Count 1.01 10^3/uL (0.1-0.8); Absolute Neutrophil Count 6.13 10^3/uL (1.2-6.7); Basophils % 0.8; Eosinophils % 3.3; HCT 30.4 % (36.0-46.0); HGB 9.8 g/dL (11.2-15.7); Immature Grans % 0.3; Lymphocytes % 23.6; MCH 29.9 pg (27.0-33.0); MCHC 32.2 % (32.0-36.0); MCV 92.7 fL (80-95); Monocytes % 10.2; Neutrophils % 61.8; Nucleated RBC 0 %; Platelet Count 414 10^3/uL (130-400); RBC 3.28 10^6/uL (3.93-5.22); RDW 12.7 % (11.7-14.6); RDW-SD 43.6 fL; WBC 9.92 10^3/uL (4.4-10.8)
[2020-07-08 19:51] LABS: ALT 29 U/L (14-59); AST 27 U/L (15-37); Albumin 3.5 g/dL (3.4-5.0); Alkaline Phosphatase 161 U/L (46-116); Anion Gap 12.6 mmol/L (3-11); BUN 18 mg/dL (7-18); Bilirubin, Total 0.2 mg/dL (0.2-1.0); CO2 22.4 mmol/L (21.0-32.0); CREATININE 2.1 mg/dL (0.55-1.02); Calcium 9.2 mg/dL (8.5-10.1); Chloride 107 mmol/L (98-107); Estimated GFR 29.45 (mL/min/1.73m2); Glucose 166 mg/dL (74-106); Potassium 4.8 mmol/L (3.5-5.1); Sodium 142 mmol/L (136-145); Total Protein 8.1 g/dL (6.4-8.2)
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
[2020-07-08] MEDS: Silver sulfaDIAZINE 1% 25 GM TUBE TP (20:59)
[2020-07-08 21:02] VITALS: BP 139/64; PULSE 105; O2SAT 100
[2020-07-08 21:33] VITALS: BP 139/64; PULSE 105; RESP 16; TEMP 36.7; O2SAT 100
[2020-07-10 19:16] LABS: Vitamin D 25 Total 28.2 ng/ml (30-100)
== END 2020-07-08 21:35 | disposition home or self-care (01) ==
PROVIDERS: Emergency Medicine; Emergency Provider Emergency Medicine; PCP Physician Assistant
DX: T25.231A Burn of second degree of right toe(s) (nail), initial encounter (principal); E10.40 Type 1 diabetes mellitus with diabetic neuropathy, unspecified; X16.XXXA Contact with hot heating appliances, radiators and pipes, initial encounter
CPT/HCPCS: 16020; 36415; 80053; 96361; 96365; 99284; 73630; 83605; 85025; 99281; J0295

== ENCOUNTER 2020-07-10 18:36 | Outpatient (REF) | payer MEDICAID, SELFPAY | END 2020-07-10 18:37 | disposition home or self-care (01) | LOC: NCHCN 18:36 | PROVIDERS: PCP Physician Assistant; Visit Provider Physician Assistant | DX: M85.88 Other specified disorders of bone density and structure, other site (principal); F32.9 Major depressive disorder, single episode, unspecified | CPT/HCPCS: 82306 ==

== ENCOUNTER 2020-08-03 01:44 | Outpatient (CLI) | payer MEDICAID, SELFPAY ==
--- NOTE | 2020-08-03 12:30 | DI.US_ITS ---
APPROVED REPORT EXAM: Comprehensive 2D, Doppler, and color-flow Echocardiogram Patient Location: Out-Patient [facility] Boss: Celine Hernandez RDCS (AE) Indications: Orthostatic Hypotension Other Information Study Quality: Good Conclusion Left Ventricle : The left ventricle is normal size. The left ventricular systolic function is normal. The left ventricular ejection fraction is within the normal range. There is normal left ventricular wall thickness. There is normal LV segmental wall motion. The left ventricular diastolic function is normal. LVEF is 60-65%. Right Ventricle : The right ventricle is normal size. The right ventricular systolic function is norm al. The RVSP is 19.mmHg. Atria : The left atrium size is normal. The right atrium size is normal. Valves: There are no hemodynamically significant valvular lesions. Great Vessels : The aortic root is normal in size. The ascending aorta is normal in size. Aortic arch is normal in caliber. IVC is normal in size and collapses >50% with inspiration. Please see remainder of study for further details. Wall motion Left Ventricle The left ventricle is normal size. The left ventricular systolic function is normal. The left ventric ular ejection fraction is within the normal range. There is normal left ventricular wall thickness. T here is normal LV segmental wall motion. The left ventricular diastolic function is normal. There is no ventricular septal defect visualized. LVEF is 60-65%. Right Ventricle The right ventricle is normal size. The right ventricular systolic function is normal. The RVSP is 19 .mmHg. Atria The left atrium size is normal. The right atrium size is normal. The interatrial septum is intact wit h no evidence for an atrial septal defect. Aortic Valve The aortic valve is normal in structure. Aortic valve is trileaflet. There is no aortic valvular sten osis. No aortic regurgitation is present. Mitral Valve The mitral valve is normal in structure. No evidence of mitral valve stenosis. Trace mitral regurgita tion. Tricuspid Valve The tricuspid valve is normal in structure. There is no tricuspid valve stenosis. Trace tricuspid reg urgitation. Pulmonic Valve The pulmonary valve is normal in structure. There is no pulmonic valvular stenosis. There is no pulmo marcela valvular regurgitation. Great Vessels The aortic root is normal in size. The ascending aorta is normal in size. Aortic arch is normal in ca liber. IVC is normal in size and collapses >50% with inspiration. Pericardium There is no pericardial effusion. 2D Dimensions IVSD d PLAX 0.76 cm F: 0.6-1.0 LV Vol A2C d MOD 90.2 mL LVPW d PLAX 0.79 cm F: 0.6 - 1.0 LV Vol A4C d MOD 89.0 mL LVID d PLAX 4.30 cm F: 3.8 - 5.2 LA vol/ BSA A2C s A-L 20.6 mL/m2 LVDs 2.80 cm F: 2.2 - 3.5 LA vol/ BSA A4C s A-L 19.1 mL/m2 Ao Root d 2.34 cm F: 2.7 - 3.3 LA Vol/ BSA Biplane s A-L 21.3 mL/m2 RA Area A4C 11.66 cm2 LA Area A4C s MOD 15.43 cm2 RA Vol/ BSA A4C s A-L 12.8 mL/m2 LA Area A2C s MOD 14.99 cm2 Ao Asc Diam d 2.73 cm F: 2.3 - 3.1 LV EF A4C MOD 60.1 % LV EF Teichholz 63.4 % LV EF A2C MOD 64.2 % LVEF (Lobato's) 61.54 % F: 54 - 74 LV EF Biplane MOD 61.5 % LV Volume 68.77 mL F: 46 - 106 SV 55.11 mL LV Volume Index 36.97 mL/m2 F: 29 - 61 SV Index 29.52 mL/m2 LV Vol Biplane MOD 89.6 mL FS 34.05 % M-Mode TAPSE 2.08 cm (M/F) >1.7 LV Diastology MV E' medial 0.079 (>0.07 m/s) E/A Ratio 1.4 LV E/e MED 9.40 (<14) MV E Vmax 0.75 (0.4-1.3 m/s) MV E' lateral 0.141 (>0.1 m/s) MV A Vmax 0.55 (0.4-1.3 m/s) LV E/e LAT 5.30 (<14) MV E/A Ratio 1.30 MV E/E' medial 9.44 MV E/E' lateral 5.31 Aortic Valve LVOT Area 2.88 cm2 AoV Area Vmax 2.35 cm2 LVOT Vmax 0.94 m/s AoV Area/ BSA (Vmax) 1.26 cm2/m2 LVOT Mean Ronaldo. 0.56 m/s OLIMPIA Mean Ronaldo. 1.93 cm2 LVOT Peak Grad 3.6 mmHg OLIMPIA Mean Ronaldo. Index 1.04 cm2/m2 LVOT Mean Grad 1.5 mmHg LVOT VTI 0.206 m LVOT Diam s 1.90 cm AoV Vmax 1.15 m/s Velocity Ratio 0.81 AoV Mean Ronaldo. 0.83 m/s AoV Peak Grad 5.3 mmHg LVOT SV 59.31 mL AoV Mean Grad 3.0 mmHg AoV VTI 0.226 m AoV Area VTI 2.63 cm2 AoV Area/ BSA (VTI) 1.41 cm/m2 Mitral Valve MV DT 209 (160-240 msec) MV PHT 60 msec MV Area PHT 3.64 cm2 MV VTI 0.197 m MV VTI Annulus 0.194 m MV Area VTI 2.96 (4.0-6.0 cm2) Pulmonary Valve PV Vmax 0.87 (0.5-1.5 m/s) RVOT Peak Gr. 2.04 mmHg PV Peak Grad 3.0 mmHg RVOT Mean Gr. 1.00 mmHg PV Mean Grad 1.6 mmHg RVOT VTI 0.170 m PV VTI 0.193 m RVOT Vmax 0.72 m/s Tricuspid Valve TR Peak Grad 16.0 mmHg TR Vmax 2.00 m/s RA Pressure 3.00 mmHg RVSP (TR) 19.1 mmHg
== END 2020-08-03 02:04 ==
PROVIDERS: PCP Physician Assistant; Visit Provider Physician Assistant
DX: I95.1 Orthostatic hypotension (principal)
CPT/HCPCS: 93306

== ENCOUNTER 2020-08-04 02:55 | Outpatient (CLI) | payer MEDICAID, SELFPAY ==
--- NOTE | 2020-08-04 07:45 | DI.US_ITS ---
EXAM: US RENAL CLINICAL HISTORY: monitor known stones,N20.0 TECHNIQUE: Ultrasound performed using standard protocol. COMPARISON: CT CT RENAL COLIC WO from 06/02/2020 US US ECHOCARDIOGRAM from 08/03/2020 FINDINGS: Renal ultrasound was performed according to the usual protocol. The kidneys both contained numerous echogenic foci the largest on the right measuring about 12 millimeters in diameter, these findings ar e consistent with bilateral nephrolithiasis identified on CT of June 02. There does not appear to be hydronephrosis. The renal pelves are somewhat prominent on prevoid imaging but normal on postv oid imaging. Urinary bladder contains debris. There is mild bladder wall thickening which is nonspecific. Pre and postvoid urinary bladder volume measurements are 185 cc and 0 cc respectively. Right ureteral jet was visualized. Left ureteral jet was nonvisualized. IMPRESSION: Multiple bilateral renal calculi, nonobstructive. Mild urinary bladder wall thickening, nonspecific, please correlate regarding the possibility of cystitis. DATA REPOSITORY:
== END 2020-08-04 03:15 ==
PROVIDERS: PCP Physician Assistant; Visit Provider Urology
DX: N20.0 Calculus of kidney (principal)
CPT/HCPCS: 76770

== ENCOUNTER 2020-08-23 16:57 | Outpatient (REF) | payer MEDICAID, SELFPAY ==
[2020-08-23 18:29] LABS: Anion Gap 12.3 mmol/L (3-11); BUN 25 mg/dL (7-18); CO2 20.7 mmol/L (21.0-32.0); CREATININE 1.9 mg/dL (0.55-1.02); Calcium 9.8 mg/dL (8.5-10.1); Chloride 106 mmol/L (98-107); Estimated GFR 33.06 (mL/min/1.73m2); Glucose 314 mg/dL (74-106); Potassium 4.7 mmol/L (3.5-5.1); Sodium 139 mmol/L (136-145)
== END 2020-08-23 16:58 | disposition home or self-care (01) ==
LOC: NCHCN 16:57
PROVIDERS: PCP Physician Assistant; Visit Provider Physician Assistant
DX: N18.30 Chronic kidney disease, stage 3 unspecified (principal)
CPT/HCPCS: 80048

== ENCOUNTER 2020-09-15 09:29 | Day surgery (SDC) | payer MEDICAID, SELFPAY ==
[2020-09-15 09:38] VITALS: BP 110/73; PULSE 95; RESP 18; TEMP 36.2; O2SAT 99
[2020-09-15] MEDS: Lactated Ringers 1,000 ML 80 ML IV (10:05)
[2020-09-15] MEDS: Bupivacaine 0.5% Pres-Free 30 ML VIAL (10:55)
[2020-09-15] MEDS: ceFAZolin 1 GM/50 ML BAG IVPB (11:00)
--- NOTE | 2020-09-15 11:06 | AMP_PTH ---
PATIENT: Jes Martinez LOC: [facility] U#:[id number] AGE/SX: 20/F ROOM: RE09/15/[address]: River Sheppard : 2000 BED: DIS: 09/15/2020 SPEC #: [id number] RECD: 09/15/20 13:05 STATUS: [place] REQ #: [id number] BRIANA: 09/15/20 11:[address]: River Sheppard DEPT: Surgical Specimen RECD BY: Robina Dhillon ENTERED: 09/15/20 13:07 SP TYPE: Amputation OTHR DR: Maikel Vargas Tissues: 1 - AMPUTATION FINGERS/TOES(NOT TRAUMA) 2 - AMPUTATION FINGERS/TOES(NOT TRAUMA) Procedures: GROSS AND MICRO LEVEL 4 DECALCIFICATION Comments: [id number]
--- NOTE | 2020-09-15 11:47 | W.PM.DSUDISC ---
Discharge Plan Discharge Details Attending Provider: River Sheppard Primary Care Provider: Maikel Vargas Home Meds and New Rx's Prescriptions: No Action fluoride (sodium) [PreviDent] 1.1 % gel 1 applic DT DAILY RF: 0 gabapentin 600 mg tablet 600 mg PO BID RF: 0 calcium carbonate [Calcium 500] 500 mg calcium (1,250 mg) tablet 500 mg PO BID Qty: 180 RF: 3 cholecalciferol (vitamin D3) 125 mcg (5,000 unit) capsule 125 mcg PO DAILY Qty: 90 RF: 0 (DME) Add-A-Richardson Tray Tray See Rx Instructions .ROUTE .MEDSUPPLY Qty: 30 RF: 12 (DME) Richardson Catheter 14 Fr misc See Rx Instructions .ROUTE .MEDSUPPLY Qty: 30 RF: 12 Lantus U-100 Insulin 100 unit/mL Solution 28 unit SUBCUT QAM RF: 0 Humalog KwikPen Insulin 200 unit/mL (3 mL) Insulin Pen 0 - 30 unit SUBCUT DAILY RF: 0 citalopram 10 mg Tablet 20 mg PO DAILY RF: 0 folic acid 1 mg Tablet 1 mg PO DAILY RF: 0 thiamine HCl (vitamin B1) 100 mg Tablet 100 mg PO DAILY RF: 0 pyridostigmine bromide 60 mg tablet 90 mg PO TID RF: 0 ondansetron 4 mg tablet,disintegrating 4 mg PO PRN PRNRF: 0 dicyclomine 10 mg capsule 20 mg PO TID RF: 0 (DME) Dexcom G6 Sensor Device MISCELLANEOUS RF: 0 pantoprazole 40 mg tablet,delayed release (DR/EC) 40 mg PO HS RF: 0 Probiotic 20 billion cell Capsule 20,000 mmu cells PO DAILY RF: 0 loperamide 2 mg capsule 2 mg PO BID RF: 0 sodium chloride 1 gram tablet 6 g PO DAILY RF: 0 lisinopril 2.5 mg tablet 2.5 mg PO DAILY RF: 0 midodrine 10 mg tablet 15 mg PO TID RF: 0 levofloxacin 750 mg tablet 750 mg PO DAILY Qty: 28 RF: 0 clindamycin HCl 150 mg capsule 300 mg PO TID Qty: 30 RF: 0 DS: Diagnosis Discharge Diagnosis (1) Osteomyelitis of foot, right, acute: Status: Acute
[2020-09-15 11:50] VITALS: BP 140/90; PULSE 92; RESP 18; TEMP 36.5; O2SAT 100
--- NOTE | 2020-09-15 12:02 | W.PM.DSUDISC ---
Discharge Plan Disposition Patient Disposition: HOME Condition: Good Discharge Details Reason For Visit: Debridement right third and fourth toes Attending Provider: River Sheppard Primary Care Provider: Maikel Vargas Home Meds and New Rx's Prescriptions: Continued fluoride (sodium) [PreviDent] 1.1 % gel 1 applic DT DAILY RF: 0 gabapentin 600 mg tablet 600 mg PO BID RF: 0 calcium carbonate [Calcium 500] 500 mg calcium (1,250 mg) tablet 500 mg PO BID Qty: 180 RF: 3 cholecalciferol (vitamin D3) 125 mcg (5,000 unit) capsule 125 mcg PO DAILY Qty: 90 RF: 0 (DME) Add-A-Richardson Tray Tray See Rx Instructions .ROUTE .MEDSUPPLY Qty: 30 RF: 12 (DME) Richardson Catheter 14 Fr misc See Rx Instructions .ROUTE .MEDSUPPLY Qty: 30 RF: 12 Lantus U-100 Insulin 100 unit/mL Solution 28 unit SUBCUT QAM RF: 0 Humalog KwikPen Insulin 200 unit/mL (3 mL) Insulin Pen 0 - 30 unit SUBCUT DAILY RF: 0 citalopram 10 mg Tablet 20 mg PO DAILY RF: 0 folic acid 1 mg Tablet 1 mg PO DAILY RF: 0 thiamine HCl (vitamin B1) 100 mg Tablet 100 mg PO DAILY RF: 0 pyridostigmine bromide 60 mg tablet 90 mg PO TID RF: 0 ondansetron 4 mg tablet,disintegrating 4 mg PO PRN PRNRF: 0 dicyclomine 10 mg capsule 20 mg PO TID RF: 0 (DME) Dexcom G6 Sensor Device MISCELLANEOUS RF: 0 pantoprazole 40 mg tablet,delayed release (DR/EC) 40 mg PO HS RF: 0 Probiotic 20 billion cell Capsule 20,000 mmu cells PO DAILY RF: 0 loperamide 2 mg capsule 2 mg PO BID RF: 0 sodium chloride 1 gram tablet 6 g PO DAILY RF: 0 lisinopril 2.5 mg tablet 2.5 mg PO DAILY RF: 0 midodrine 10 mg tablet 15 mg PO TID RF: 0 levofloxacin 750 mg tablet 750 mg PO DAILY Qty: 28 RF: 0 clindamycin HCl 150 mg capsule 300 mg PO TID Qty: 30 RF: 0 Discharge Instructions Activity:: Elevate Remove Dressings/Wound Care:: Do Not Remove Shower/Bathe:: Cover Diet:: Carb Counting Discharge Orders Discharge Orders: Discharge Order (Routine); Ordered 09/15/20 Ordered By: River Sheppard DS: Diagnosis Discharge Diagnosis (1) Osteomyelitis of foot, right, acute: Status: Acute
--- NOTE | 2020-09-15 12:23 | ROE_ITS ---
Date of service: 09/15/20 Time of Service: 12:23 Operative Note Operative Note Refer to Anesthesia Record Jes was brought to the operative suite placed in the supine position with the right foot was prepped and draped in the usual sterile podiatric fashion. Under local anesthesia utilizing 10 cc of a 50: 50 mixture 1% lidocaine with epinephrine, 0.5% Marcaine plain digital blocks were performed without difficulty. Right ankle tourniquet was applied and after the foot was exsang uinated inflated to 250 mmHg. Attention was directed to the right third toe where proud flesh and maceration is appreciated from the base of the toe all the way to the distal interphalangeal joint of the dorsal aspect of the toe all the way to the lateral plantar side of the digit. An incision was placed directly through the granulation tissue dorsally and the bone was noted to be very soft and grayish in appearance. Based on radiographic evidence and clinical intraoperative exam I have decided to debride the toe back all the way to the metatarsal phalangeal joint. Once this was accomplished, on the back table I took a piece of bone from the middle phalanx for cultures including aerobic and anaerobic and Gram stain studies. The remaining tissue was then sent in formalin to pathology. Quarter-inch iodoform packing was inserted into the wound and the wound was loosely sutured with 3-0 nylon and 4-0 nylon Attention was now directed to the fourth toe. Eschar was noted over the dorsum of the toe from the middle phalanx distally. With a #15 scalpel and pickup debridement was performed to bone. It was noted that the distal interphalangeal joint was exposed and the bone softened. Intraoperative decision was then made to further debride the toe back to the proximal phalanx. I debrided the head of the proximal phalanx and removed devitalized skin overlying the region. Once t his was accomplished I felt that I be able to close the wound primarily. Copious irrigation was performed. The extensor and flexor tendons were repaired end-to-end with 3-0 Vicryl and the skin coapted with simple interrupted suture utilizing 3-0 nylon and 4-0 nylon The wounds were dressed with Xeroform gauze fluff compression dressings and the tourniquet was released with return of vascularity to all tissue in the foot. Estimated blood loss was 3 cc Sharp and sponge counts were correct. Jes left the OR with vital signs stable vascular status intact. She understands that she will be receiving daily IV infusions of antibiotics upwards of 6 weeks pending microbiology and pathologic results.
[2020-09-15] MEDS: Normal Saline Flush 10 ML SYR IVP (12:26)
[2020-09-15] MEDS: cefTRIAXone 1 GM/50 ML BAG IVPB (12:33)
[2020-09-15] MEDS: Normal Saline Flush 10 ML SYR IV (12:59)
== END 2020-09-15 13:05 | disposition home or self-care (01) ==
PROVIDERS: PCP Physician Assistant; Visit Provider Podiatrist
PROC: (CPT 11044; principal; 2020-09-15 11:00)
DX: L97.514 Non-pressure chronic ulcer of other part of right foot with necrosis of bone (principal); M86.671 Other chronic osteomyelitis, right ankle and foot
CPT/HCPCS: 11044; 87077; 88300; 88305; 87070; 87075; 87186; 87205; 88311; J0690; J0696

== ENCOUNTER 2020-09-22 01:58 | Outpatient (CLI) | payer MEDICAID, SELFPAY ==
[2020-09-22 11:52] LABS: Source Nasal/Nares
[2020-09-22 20:39] LABS: COVID-19 PCR Negative (Negative)
== END 2020-09-22 01:59 | disposition home or self-care (01) ==
LOC: LBO 01:58
PROVIDERS: PCP Physician Assistant; Visit Provider Urology
DX: Z20.822 Contact with and (suspected) exposure to COVID-19 (principal); Z01.818 Encounter for other preprocedural examination
CPT/HCPCS: 87635

== ENCOUNTER 2020-09-22 04:40 | Outpatient (RCR) | payer MEDICAID, SELFPAY ==
[2020-09-16] MEDS: Normal Saline Flush 10 ML SYR IVP (12:57)
[2020-09-16] MEDS: cefTRIAXone 1 GM/50 ML BAG IVPB (12:57)
[2020-09-17] MEDS: cefTRIAXone 1 GM/50 ML BAG IVPB (13:26)
[2020-09-17] MEDS: Normal Saline Flush 10 ML SYR IVP (13:40)
[2020-09-18] MEDS: cefTRIAXone 1 GM/50 ML BAG IVPB (09:37)
[2020-09-18] MEDS: Normal Saline Flush 10 ML SYR IVP (09:37)
[2020-09-18 09:49] LABS: Abs Immature Grans 0.02 10^3/uL (0.0-0.06); Absolute Basophil Count 0.07 10^3/uL (0.0-0.2); Absolute Eosinophil Count 0.29 10^3/uL (0.0-0.7); Absolute Lymphocyte Count 1.99 10^3/uL (1.2-3.4); Absolute Monocyte Count 0.89 10^3/uL (0.1-0.8); Absolute Neutrophil Count 4.35 10^3/uL (1.2-6.7); Basophils % 0.9; Eosinophils % 3.8; HCT 28.3 % (36.0-46.0); HGB 9.3 g/dL (11.2-15.7); Immature Grans % 0.3; Lymphocytes % 26.1; MCH 29.8 pg (27.0-33.0); MCHC 32.9 % (32.0-36.0); MCV 90.7 fL (80-95); MPV 9.6 fL (8.0-11.0); Monocytes % 11.7; Neutrophils % 57.2; Nucleated RBC 0 %; Platelet Count 369 10^3/uL (130-400); RBC 3.12 10^6/uL (3.93-5.22); RDW 13.2 % (11.7-14.6); RDW-SD 43.8 fL; WBC 7.61 10^3/uL (4.4-10.8)
[2020-09-18 09:59] LABS: Anion Gap 11.8 mmol/L (3-11); BUN 24 mg/dL (7-18); C-Reactive Protein 2.32 mg/dL (0.0-0.3); CO2 21.2 mmol/L (21.0-32.0); CREATININE 1.5 mg/dL (0.55-1.02); Chloride 105 mmol/L (98-107); Estimated GFR 43.42 (mL/min/1.73m2); Glucose 240 mg/dL (74-106); Potassium 3.7 mmol/L (3.5-5.1); Sodium 138 mmol/L (136-145)
[2020-09-19] MEDS: Normal Saline Flush 10 ML SYR IVP (14:00)
[2020-09-19] MEDS: cefTRIAXone 1 GM/50 ML BAG IVPB (14:00)
[2020-09-20] MEDS: cefTRIAXone 1 GM/50 ML BAG IVPB (12:56)
[2020-09-20] MEDS: Normal Saline Flush 10 ML SYR IVP (12:56)
[2020-09-21] MEDS: cefTRIAXone 1 GM/50 ML BAG IVPB (12:54)
[2020-09-21] MEDS: Normal Saline Flush 10 ML SYR IVP (12:54)
== END 2020-10-02 23:59 | disposition home or self-care (01) ==
LOC: INF 04:40
PROVIDERS: PCP Physician Assistant; Visit Provider Nurse Practitioner Family
DX: M86.9 Osteomyelitis, unspecified (principal); N18.30 Chronic kidney disease, stage 3 unspecified; D53.9 Nutritional anemia, unspecified
CPT/HCPCS: 36573; 80048; 96365; 85025; 86140; J0696

== ENCOUNTER 2020-09-25 07:29 | Day surgery (SDC) | payer MEDICAID, SELFPAY ==
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
[2020-09-25 07:37] VITALS: BP 128/87; PULSE 91; RESP 22; TEMP 36.2; O2SAT 100
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
[2020-09-25] MEDS: Normal Saline Flush 10 ML SYR IV (08:18)
[2020-09-25] MEDS: Lactated Ringers 1,000 ML 80 ML IV (08:18)
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
[2020-09-25 08:27] VITALS: BMI 30.9
[2020-09-25] MEDS: cefTRIAXone 1 GM/50 ML BAG IVPB (08:54)
[2020-09-25] MEDS: Lidocaine 2% Jelly 6 ML SYR (09:15)
[2020-09-25] MEDS: Bupivacaine 0.5% Pres-Free 30 ML VIAL (09:20)
--- NOTE | 2020-09-25 09:24 | W.PM.DSUDISC ---
Discharge Plan Disposition Patient Disposition: HOME Condition: Stable Discharge Details Reason For Visit: suprapubic tube Attending Provider: Shashi Salcido Primary Care Provider: Maikel Vargas Home Meds and New Rx's Prescriptions: No Action fluoride (sodium) [PreviDent] 1.1 % gel 1 applic DT DAILY RF: 0 gabapentin 600 mg tablet 600 mg PO BID RF: 0 calcium carbonate [Calcium 500] 500 mg calcium (1,250 mg) tablet 500 mg PO BID Qty: 180 RF: 3 cholecalciferol (vitamin D3) 125 mcg (5,000 unit) capsule 125 mcg PO DAILY Qty: 90 RF: 0 (DME) Add-A-Richardson Tray Tray See Rx Instructions .ROUTE .MEDSUPPLY Qty: 30 RF: 12 (DME) Richardson Catheter 14 Fr misc See Rx Instructions .ROUTE .MEDSUPPLY Qty: 30 RF: 12 citalopram 10 mg Tablet 20 mg PO DAILY RF: 0 folic acid 1 mg Tablet 1 mg PO DAILY RF: 0 thiamine HCl (vitamin B1) 100 mg Tablet 100 mg PO DAILY RF: 0 pyridostigmine bromide 60 mg tablet 90 mg PO TID RF: 0 ondansetron 4 mg tablet,disintegrating 4 mg PO PRN PRNRF: 0 dicyclomine 10 mg capsule 20 mg PO TID RF: 0 (DME) [employer] G6 Sensor Device MISCELLANEOUS RF: 0 pantoprazole 40 mg tablet,delayed release (DR/EC) 40 mg PO HS RF: 0 Probiotic 20 billion cell Capsule 20,000 mmu cells PO DAILY RF: 0 loperamide 2 mg capsule 2 mg PO BID RF: 0 sodium chloride 1 gram tablet 6 g PO DAILY RF: 0 lisinopril 2.5 mg tablet 2.5 mg PO DAILY RF: 0 midodrine 10 mg tablet 15 mg PO TID RF: 0 insulin lispro [Humalog U-100 Insulin] 100 unit/mL solution 0 - 60 unit continuous subcutaneous infusion DIRECTED RF: 0 insulin lispro [Humalog U-100 Insulin] 100 unit/mL solution 0 - 60 unit continuous subcutaneous infusion DIRECTED RF: 0 Discharge Instructions Additional Instructions: suprapubic tube to gravity dry dressing to suprapubic site - change daily until no bleeding from site Followup appt 4 to 6 weeks for 1st suprapubic tube change OK to shower/bathe may use tylenol for pain as needed Activity:: Activity as Tolerated Remove Dressings/Wound Care:: 24 hours Shower/Bathe:: 24 hours Diet:: As Tolerated Discharge Orders Discharge Orders: Discharge Order (Routine); Ordered 09/25/20 Ordered By: Shashi Salcido DS: Diagnosis Discharge Diagnosis (1) Urinary retention with incomplete bladder emptying: Status: Chronic
--- NOTE | 2020-09-25 09:29 | W.PM.OP ---
Date of service: 09/25/20 Time of Service: 09:29 Operative Note Operative Note DATE OF PROCEDURE: 09/25/20 PRE-OP DIAGNOSIS: Urinary retention POST-OP DIAGNOSIS: same PROCEDURE: cystoscopy with insertion of suprapubic tube SURGEON: Shashi Salcido ANESTHESIA TYPE: Local By Surgeon and Spinal Refer to Anesthesia Record ESTIMATED BLOOD LOSS: 10 PATHOLOGY: none sent COMPLICATIONS: None Patient was transported to: same day Patient's condition: stable Implants: 16 Turkmen catheter with 10 cc sterile water in catheter balloon Indications: This is a 20-year-old woman who has a history of incomplete bladder emptying. She has been performing intermittent catheterizations but has had difficulty keeping up with her large urine volume production. She presents now for placement of a suprapubic tube. Procedure Description: Brought to the operating room on 09/25/2020. She was given a dose of preoperative IV antibiotics. After successful induction of a short acting spinal anesthetic, she was placed in the dorsal lithotomy position. Her genitalia and lower abdomen were prepped and draped. 2% Xylocaine jelly was instilled into the urethra to act as a local anesthetic. A field block in the suprapubic area was performed using quarter percent Marcaine and 1% Xylocaine A curved lowsley retractor was passed through the urethra into the bladder. The tip of the Lowsley tractor was held up against the abdominal wall. A small incision was made over the palpable tip of the Lowsley tractor and the tip was brought through the rectus fascia and abdominal wall. A 16 Turkmen Richardson catheter was then grasped within the tip of the Lowsley tractor and withdrawn back down through the suprapubic tract, into the bladder and out the urethra. The catheter was then repositioned and cystoscopy was performed. Once the positioning of the catheter was confirmed to be within the bladder, the catheter balloon was inflated with 10 cc of sterile water and the catheter was hooked to gravity drainage. A drain sponge was applied to the suprapubic tract site. The patient tolerated the procedure well with no complications.
[2020-09-25 09:30] VITALS: BP 136/96; PULSE 90; RESP 18; TEMP 36.4; O2SAT 100
[2020-09-25 10:00] VITALS: BP 136/101; PULSE 88; RESP 18; TEMP 36.1; O2SAT 100
[2020-09-25 10:47] VITALS: BP 132/93; PULSE 90; RESP 16; TEMP 36; O2SAT 100
--- NOTE | 2020-09-25 10:58 | W.ANESPOSTOP ---
Postoperative Evaluation Date, Time and Location Date Performed: 09/25/20 Time Performed: 10:58 Patient Location: Day Surgery Unit Vital Signs Most Recent Imported Vital Signs: Most Recent Vital Signs Temp Pulse Resp BP Pulse Ox 36.1 C L 88 18 136/101 H 100 09/25/20 10:00 09/25/20 10:00 09/25/20 10:00 09/25/20 10:00 09/25/20 10:00 Pain Score Most Recent Pain Score: Most Recent Pain Score Pain Level 0 09/25/20 10:00 Assessment Mental Status: Awake (Alert & Oriented to Patient Baseline) Airway and Respiratory Function: Patent airway with normal (patient baseline) respiratory exam Cardiovascular Function: Hemodynamically Stable Hydration Status: Adequately Hydrated Nausea & Vomiting: No Nausea or Vomiting Pain: Pt. Denies Any Pain Peripheral Nerve Block: Patient did not receive a nerve block
[2020-09-25 11:09] VITALS: BP 95/62; PULSE 98
== END 2020-09-25 11:30 | disposition home or self-care (01) ==
PROVIDERS: PCP Physician Assistant; Visit Provider Urology
PROC: (CPT 51102; principal; 2020-09-25 08:30)
DX: R33.9 Retention of urine, unspecified (principal); G61.81 Chronic inflammatory demyelinating polyneuritis; N18.9 Chronic kidney disease, unspecified; Z79.01 Long term (current) use of anticoagulants; E55.9 Vitamin D deficiency, unspecified; E10.22 Type 1 diabetes mellitus with diabetic chronic kidney disease
CPT/HCPCS: 51102; J0696; J2405

== ENCOUNTER 2020-09-25 19:32 | Outpatient (REF) | payer MEDICAID, SELFPAY ==
[2020-09-25 17:14] LABS: Abs Immature Grans 0.03 10^3/uL (0.0-0.06); Absolute Basophil Count 0.08 10^3/uL (0.0-0.2); Absolute Eosinophil Count 0.22 10^3/uL (0.0-0.7); Absolute Lymphocyte Count 1.79 10^3/uL (1.2-3.4); Absolute Monocyte Count 1.06 10^3/uL (0.1-0.8); Absolute Neutrophil Count 6.14 10^3/uL (1.2-6.7); Basophils % 0.9; Eosinophils % 2.4; HCT 26.3 % (36.0-46.0); HGB 8.9 g/dL (11.2-15.7); Immature Grans % 0.3; Lymphocytes % 19.2; MCH 30.3 pg (27.0-33.0); MCHC 33.8 % (32.0-36.0); MCV 89.5 fL (80-95); MPV 10.1 fL (8.0-11.0); Monocytes % 11.4; Neutrophils % 65.8; Nucleated RBC 0 %; Platelet Count 296 10^3/uL (130-400); RBC 2.94 10^6/uL (3.93-5.22); RDW 13.1 % (11.7-14.6); RDW-SD 42.8 fL; WBC 9.32 10^3/uL (4.4-10.8)
[2020-09-25 17:19] LABS: Anion Gap 10.4 mmol/L (3-11); BUN 19 mg/dL (7-18); C-Reactive Protein 0.62 mg/dL (0.0-0.3); CO2 23.6 mmol/L (21.0-32.0); CREATININE 1.7 mg/dL (0.55-1.02); Calcium 8.8 mg/dL (8.5-10.1); Chloride 106 mmol/L (98-107); Estimated GFR 37.58 (mL/min/1.73m2); Glucose 300 mg/dL (74-106); Potassium 4.2 mmol/L (3.5-5.1); Sodium 140 mmol/L (136-145)
== END 2020-09-25 19:33 | disposition home or self-care (01) ==
LOC: LBN 19:32
PROVIDERS: PCP Physician Assistant; Visit Provider Podiatrist
DX: M86.171 Other acute osteomyelitis, right ankle and foot (principal)
CPT/HCPCS: 80048; 85025; 86140

== ENCOUNTER 2020-10-02 15:17 | Outpatient (REF) | payer MEDICAID, SELFPAY ==
[2020-10-02 15:41] LABS: Abs Immature Grans 0.04 10^3/uL (0.0-0.06); Absolute Basophil Count 0.12 10^3/uL (0.0-0.2); Absolute Eosinophil Count 0.22 10^3/uL (0.0-0.7); Absolute Lymphocyte Count 1.83 10^3/uL (1.2-3.4); Absolute Monocyte Count 0.89 10^3/uL (0.1-0.8); Absolute Neutrophil Count 6.19 10^3/uL (1.2-6.7); Basophils % 1.3; Eosinophils % 2.4; HCT 30.2 % (36.0-46.0); Immature Grans % 0.4; Lymphocytes % 19.7; MCHC 33.1 % (32.0-36.0); MCV 90.7 fL (80-95); Monocytes % 9.6; Neutrophils % 66.6; Nucleated RBC 0 %; Platelet Count 412 10^3/uL (130-400); RBC 3.33 10^6/uL (3.93-5.22); RDW 13.2 % (11.7-14.6); RDW-SD 43.8 fL; WBC 9.29 10^3/uL (4.4-10.8)
[2020-10-02 15:58] LABS: Anion Gap 11.3 mmol/L (3-11); BUN 27 mg/dL (7-18); C-Reactive Protein 0.33 mg/dL (0.0-0.3); CO2 21.7 mmol/L (21.0-32.0); CREATININE 2.3 mg/dL (0.55-1.02); Calcium 8.7 mg/dL (8.5-10.1); Chloride 103 mmol/L (98-107); Estimated GFR 26.51 (mL/min/1.73m2); Glucose 332 mg/dL (74-106); Potassium 4.6 mmol/L (3.5-5.1); Sodium 136 mmol/L (136-145)
== END 2020-10-02 15:18 | disposition home or self-care (01) ==
LOC: LBN 15:17
PROVIDERS: PCP Physician Assistant; Visit Provider Podiatrist
DX: M86.171 Other acute osteomyelitis, right ankle and foot (principal); E10.49 Type 1 diabetes mellitus with other diabetic neurological complication
CPT/HCPCS: 80048; 85025; 86140

== ENCOUNTER 2020-10-09 12:51 | Outpatient (REF) | payer MEDICAID, SELFPAY ==
[2020-10-09 13:18] LABS: Abs Immature Grans 0.02 10^3/uL (0.0-0.06); Absolute Basophil Count 0.07 10^3/uL (0.0-0.2); Absolute Eosinophil Count 0.36 10^3/uL (0.0-0.7); Absolute Lymphocyte Count 1.88 10^3/uL (1.2-3.4); Absolute Monocyte Count 1.05 10^3/uL (0.1-0.8); Absolute Neutrophil Count 5.83 10^3/uL (1.2-6.7); Basophils % 0.8; Eosinophils % 3.9; HCT 30.9 % (36.0-46.0); HGB 10.6 g/dL (11.2-15.7); Immature Grans % 0.2; Lymphocytes % 20.4; MCH 29.9 pg (27.0-33.0); MCHC 34.3 % (32.0-36.0); MCV 87.3 fL (80-95); Monocytes % 11.4; Neutrophils % 63.3; Nucleated RBC 0 %; Platelet Count 424 10^3/uL (130-400); RBC 3.54 10^6/uL (3.93-5.22); RDW 12.3 % (11.7-14.6); RDW-SD 39.8 fL; WBC 9.21 10^3/uL (4.4-10.8)
[2020-10-09 14:16] LABS: ALT 26 U/L (14-59); AST 14 U/L (15-37); Albumin 3.7 g/dL (3.4-5.0); Alkaline Phosphatase 184 U/L (46-116); BUN 27 mg/dL (7-18); Bilirubin, Total 0.2 mg/dL (0.2-1.0); C-Reactive Protein 1.46 mg/dL (0.0-0.3); CREATININE 1.7 mg/dL (0.55-1.02); Calcium 9.2 mg/dL (8.5-10.1); Chloride 102 mmol/L (98-107); Estimated GFR 37.58 (mL/min/1.73m2); Glucose 160 mg/dL (74-106); Potassium 3.9 mmol/L (3.5-5.1); Sodium 138 mmol/L (136-145); Total Protein 7.6 g/dL (6.4-8.2)
== END 2020-10-09 12:52 | disposition home or self-care (01) ==
LOC: LBN 12:51
PROVIDERS: PCP Physician Assistant; Visit Provider Podiatrist
DX: M86.171 Other acute osteomyelitis, right ankle and foot (principal)
CPT/HCPCS: 80053; 85025; 86140

== ENCOUNTER 2020-10-16 13:44 | Outpatient (REF) | payer MEDICAID, SELFPAY ==
[2020-10-16 15:00] LABS: Abs Immature Grans 0.03 10^3/uL (0.0-0.06); Absolute Lymphocyte Count 1.73 10^3/uL (1.2-3.4); Absolute Monocyte Count 0.74 10^3/uL (0.1-0.8); Absolute Neutrophil Count 6.48 10^3/uL (1.2-6.7); Basophils % 1.1; Eosinophils % 3.2; HCT 30.4 % (36.0-46.0); HGB 10.1 g/dL (11.2-15.7); Immature Grans % 0.3; Lymphocytes % 18.4; MCH 30.1 pg (27.0-33.0); MCHC 33.2 % (32.0-36.0); MCV 90.7 fL (80-95); MPV 9.9 fL (8.0-11.0); Monocytes % 7.9; Neutrophils % 69.1; Nucleated RBC 0 %; Platelet Count 370 10^3/uL (130-400); RBC 3.35 10^6/uL (3.93-5.22); RDW 12.5 % (11.7-14.6); RDW-SD 41.2 fL; WBC 9.38 10^3/uL (4.4-10.8)
[2020-10-16 15:13] LABS: Anion Gap 12.5 mmol/L (3-11); BUN 26 mg/dL (7-18); CO2 21.5 mmol/L (21.0-32.0); CREATININE 1.7 mg/dL (0.55-1.02); Chloride 105 mmol/L (98-107); Estimated GFR 37.58 (mL/min/1.73m2); Glucose 342 mg/dL (74-106); Potassium 4.4 mmol/L (3.5-5.1); Sodium 139 mmol/L (136-145)
[2020-10-17 15:39] LABS: ALT 28 U/L (14-59); AST 17 U/L (15-37); Albumin 3.5 g/dL (3.4-5.0); Alkaline Phosphatase 171 U/L (46-116); Bilirubin, Direct 0.1 mg/dL (0.0-0.2); Bilirubin, Total 0.2 mg/dL (0.2-1.0); Total Protein 7.1 g/dL (6.4-8.2)
== END 2020-10-16 13:45 | disposition home or self-care (01) ==
LOC: LBN 13:44
PROVIDERS: PCP Physician Assistant; Visit Provider Podiatrist
DX: M86.171 Other acute osteomyelitis, right ankle and foot (principal); E10.49 Type 1 diabetes mellitus with other diabetic neurological complication; G61.81 Chronic inflammatory demyelinating polyneuritis; E10.22 Type 1 diabetes mellitus with diabetic chronic kidney disease
CPT/HCPCS: 80048; 80076; 85025; 86140

== ENCOUNTER 2020-10-23 18:47 | Outpatient (REF) | payer MEDICAID, SELFPAY ==
[2020-10-23 18:01] LABS: Abs Immature Grans 0.04 10^3/uL (0.0-0.06); Absolute Basophil Count 0.07 10^3/uL (0.0-0.2); Absolute Eosinophil Count 0.29 10^3/uL (0.0-0.7); Absolute Lymphocyte Count 1.59 10^3/uL (1.2-3.4); Absolute Monocyte Count 0.82 10^3/uL (0.1-0.8); Absolute Neutrophil Count 5.67 10^3/uL (1.2-6.7); Basophils % 0.8; Eosinophils % 3.4; HCT 28.9 % (36.0-46.0); Immature Grans % 0.5; Lymphocytes % 18.8; MCH 29.4 pg (27.0-33.0); MCHC 31.1 % (32.0-36.0); MCV 94.4 fL (80-95); MPV 10.1 fL (8.0-11.0); Monocytes % 9.7; Neutrophils % 66.8; Nucleated RBC 0 %; Platelet Count 330 10^3/uL (130-400); RBC 3.06 10^6/uL (3.93-5.22); RDW 12.9 % (11.7-14.6); WBC 8.48 10^3/uL (4.4-10.8)
[2020-10-23 18:08] LABS: Anion Gap 12.6 mmol/L (3-11); BUN 24 mg/dL (7-18); C-Reactive Protein 0.77 mg/dL (0.0-0.3); CO2 21.4 mmol/L (21.0-32.0); CREATININE 1.6 mg/dL (0.55-1.02); Calcium 8.4 mg/dL (8.5-10.1); Chloride 107 mmol/L (98-107); Estimated GFR 40.31 (mL/min/1.73m2); Glucose 288 mg/dL (74-106); Potassium 4.4 mmol/L (3.5-5.1); Sodium 141 mmol/L (136-145)
== END 2020-10-23 18:48 | disposition home or self-care (01) ==
LOC: LBN 18:47
PROVIDERS: PCP Physician Assistant; Visit Provider Physician Assistant
DX: M86.171 Other acute osteomyelitis, right ankle and foot (principal)
CPT/HCPCS: 80048; 85025; 86140

== ENCOUNTER 2020-12-19 14:21 | Outpatient (REF) | payer MEDICAID, SELFPAY ==
[2020-12-19 19:20] LABS: HCT 35.4 % (36.0-46.0); HGB 11.3 g/dL (11.2-15.7); MCH 29.5 pg (27.0-33.0); MCHC 31.9 % (32.0-36.0); MCV 92.4 fL (80-95); MPV 10.1 fL (8.0-11.0); Platelet Count 413 10^3/uL (130-400); RBC 3.83 10^6/uL (3.93-5.22); WBC 10.23 10^3/uL (4.4-10.8)
[2020-12-19 19:54] LABS: Anion Gap 10.1 mmol/L (3-11); BUN 21 mg/dL (7-18); CO2 23.9 mmol/L (21.0-32.0); CREATININE 1.7 mg/dL (0.55-1.02); Chloride 105 mmol/L (98-107); Estimated GFR 37.58 (mL/min/1.73m2); Glucose 312 mg/dL (74-106); Potassium 4.8 mmol/L (3.5-5.1); Sodium 139 mmol/L (136-145)
[2020-12-21 00:45] LABS: Vitamin D 25 Total 29.2 ng/mL (30-100)
== END 2020-12-19 14:22 | disposition home or self-care (01) ==
LOC: NCHCN 14:21
PROVIDERS: PCP Physician Assistant; Visit Provider Physician Assistant
DX: N31.9 Neuromuscular dysfunction of bladder, unspecified (principal); D53.9 Nutritional anemia, unspecified; E55.9 Vitamin D deficiency, unspecified
CPT/HCPCS: 80048; 82306; 85027

== ENCOUNTER 2021-02-02 19:34 | Emergency (ER) | payer MEDICAID, SELFPAY ==
[2021-02-02 19:39] VITALS: BP 106/62; PULSE 68; RESP 18; TEMP 37; O2SAT 99
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
[2021-02-02 20:24] VITALS: BP 122/66; PULSE 68; RESP 18; TEMP 36.8; O2SAT 98
== END 2021-02-02 20:43 | disposition home or self-care (01) ==
PROVIDERS: Emergency Provider Physician Assistant; PCP Physician Assistant
DX: T25.222A Burn of second degree of left foot, initial encounter (principal); X19.XXXA Contact with other heat and hot substances, initial encounter; E10.40 Type 1 diabetes mellitus with diabetic neuropathy, unspecified; E10.69 Type 1 diabetes mellitus with other specified complication
CPT/HCPCS: 16020

== ENCOUNTER 2021-03-30 18:47 | Outpatient (REF) | payer MEDICAID, SELFPAY ==
[2021-03-30 19:19] LABS: HCT 33.8 % (36.0-46.0); HGB 10.7 g/dL (11.2-15.7); MCH 28.8 pg (27.0-33.0); MCHC 31.7 % (32.0-36.0); MCV 91.1 fL (80-95); MPV 10.5 fL (8.0-11.0); Platelet Count 463 10^3/uL (130-400); RBC 3.71 10^6/uL (3.93-5.22); RDW 12.6 % (11.7-14.6); RDW-SD 42.1 fL; WBC 7.68 10^3/uL (4.4-10.8)
[2021-03-30 19:45] LABS: ALT 24 U/L (14-59); AST 13 U/L (15-37); Albumin 3.6 g/dL (3.4-5.0); Alkaline Phosphatase 184 U/L (46-116); Anion Gap 12.9 mmol/L (3-11); BUN 26 mg/dL (7-18); Bilirubin, Total 0.3 mg/dL (0.2-1.0); CO2 22.1 mmol/L (21.0-32.0); CREATININE 2.2 mg/dL (0.55-1.02); Calcium 9.1 mg/dL (8.5-10.1); Chloride 100 mmol/L (98-107); Estimated GFR 27.91 (mL/min/1.73m2); Glucose 418 mg/dL (74-106); Potassium 4.8 mmol/L (3.5-5.1); Sodium 135 mmol/L (136-145); Total Protein 7.4 g/dL (6.4-8.2)
[2021-03-30 19:53] LABS: COMMENT (LAB VIEW ONLY) 39.02 mg/dL
[2021-03-30 19:54] LABS: Microalb ug/mg Crea 678.9 ug/mg Cr
[2021-04-02 02:27] LABS: Vitamin D 25 Total 24.1 ng/mL (30-100)
== END 2021-03-30 18:48 | disposition home or self-care (01) ==
LOC: NCHCN 18:47
PROVIDERS: PCP Physician Assistant; Visit Provider Physician Assistant
DX: E10.8 Type 1 diabetes mellitus with unspecified complications (principal); E78.5 Hyperlipidemia, unspecified; I95.1 Orthostatic hypotension; E55.9 Vitamin D deficiency, unspecified
CPT/HCPCS: 80053; 82306; 85027; 82043; 82570; 83036

== ENCOUNTER 2021-04-13 00:25 | Outpatient (CLI) | payer MEDICAID, SELFPAY ==
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
[2021-04-13 13:56] LABS: CREATININE 2.1 mg/dL (0.55-1.02); Estimated GFR 29.19 (mL/min/1.73m2)
[2021-04-13 15:18] LABS: Potassium 4.9 mmol/L (3.5-5.1); TSH 2.04 uIU/mL (0.36-3.74)
[2021-04-13 16:03] LABS: Hemoglobin A1C 8.2 % (<5.7)
[2021-04-16 05:46] LABS: Vitamin D 25 Total 25.1 ng/mL (30-100)
== END 2021-04-13 00:45 ==
PROVIDERS: Internal Medicine; PCP Physician Assistant; Visit Provider Podiatrist
DX: E10.621 Type 1 diabetes mellitus with foot ulcer (principal); E10.65 Type 1 diabetes mellitus with hyperglycemia; L97.529 Non-pressure chronic ulcer of other part of left foot with unspecified severity
CPT/HCPCS: 82306; 73718; 82565; 83036; 84132; 84443